=== PATIENT | female | born 1995 | race Caucasian/White ===

== ENCOUNTER → 2022-04-17 10:05 | Outpatient (CLI) | payer OTHER, SELFPAY ==
--- NOTE | ~2022-04-17 | US_ITS ---
EXAMINATION: US pelvic complete w TV DATE: 04/17/2022 11:05 INDICATION: Menorrhagia TECHNIQUE: Multiple transabdominal and endovaginal sonographic images of the pelvis were obtained. COMPARISON: None. FINDINGS: The uterus measures 8.0 x 4.0 x 5.5 cm. The endometrial complex measures 4 mm. An IUD is in expected position. The right ovary measures 2.9 x 2.3 x 2.4 cm. The left ovary measures 3.3 x 2.0 x 3.2 cm. There is normal vascular flow in the ovaries. There is no free fluid in the pelvis. IMPRESSION: 1. No sonographic correlate for the patient's symptoms. 2. IUD in expected position. Reviewed, dictated and finalized at location A.
== END ==
PROVIDERS: PCP Internal Medicine; Visit Provider Internal Medicine
DX: N92.0 Excessive and frequent menstruation with regular cycle (principal); Z97.5 Presence of (intrauterine) contraceptive device
CPT/HCPCS: 76830; 76856

== ENCOUNTER 2022-09-22 08:43 | Emergency (ER) | payer OTHER, SELFPAY ==
--- NOTE | ~2022-09-22 | XR_ITS ---
EXAMINATION:XR_[id number]_CR DATE: 09/22/2022 09:50 INDICATION: Mid and upper back pain. Left neck tightness and limited range of motion. TECHNIQUE: AP, lateral, lateral swimmers and odontoid views of the cervical spine are provided. COMPARISON: None FINDINGS: 12 degree cervicothoracic levocurvature. Sagittal alignment is normal. Odontoid is intact. Normal at lantoaxial interval. Vertebral body heights are normal. Disc spaces are normal. Mild facet and uncove rtebral osteoarthritis in the mid cervical spine. Prevertebral soft tissues are normal. IMPRESSION: 1. Mild cervicothoracic levocurvature with mild mid cervical facet and uncovertebral osteoarthritis. Reviewed, dictated and finalized at location L. T CULLER IMPRESSION: 1. Mild cervicothoracic levocurvature with mild mid cervical facet and uncovert ebral osteoarthritis.
[2022-09-22 08:47] VITALS: BP 131/86; PULSE 89; RESP 16; TEMP 36.5; O2SAT 100
--- NOTE | 2022-09-22 10:44 | ED.BACK ---
HPI - Back Pain/Injury General Chief Complaint: Back Pain/Injury Stated Complaint: back pain Time Seen by Provider: 09/22/22 10:37 Source: patient Mode of arrival: ambulatory Limitations: no limitations History of Present Illness HPI Narrative: Patient is a 27-year-old female who presents to the ED with report of neck pain. Patient reports she was laying in bed last night and around 9 PM when she suddenly developed pain in her posterior and left-sided neck/upper back. Symptoms continue to worsen. She tried taking a muscle relaxer with minimal relief. Patient denies any injury. She does note pain somewhat radiates down her arms. Denies numbness, tingling, chest pain, difficulty breathing. Related Data Home Medications Medication Instructions Recorded Confirmed epinephrine 0.3 mg/0.3 mL 09/22/22 injection, auto-injector (Auvi-Q) Allergies Allergy/AdvReac Type Severity Reaction Status Date / Time gluten Allergy Unknown Verified 09/22/22 10:14 Review of Systems Review of Systems: CONSTITUTIONAL: Denies fever, chills, or sweats. CARDIOVASCULAR: Denies chest pain. RESPIRATORY: Denies cough or dyspnea. GASTROINTESTINAL: Denies abdominal pain, nausea, vomiting. MUSCULOSKELETAL: See HPI. NEUROLOGIC: Denies headache, numbness, or weakness. All systems reviewed & are unremarkable except as noted in HPI and below PMFSH Past Medical History Medical History (Updated 09/22/22 @ 12:21 by Sharon Valencia PA-C) No pertinent past medical history Surgical History Surgical History (Updated 09/22/22 @ 10:45 by Sharon Valencia PA-C) No pertinent past surgical history Social History Social History (Updated 09/22/22 @ 10:45 by Sharon Valencia PA-C) Smoking status: Never smoker Exam Narrative: GENERAL: Well appearing, obese, non-toxic, in no acute distress. HEAD: Normocephalic, atraumatic. NECK: Supple. No meningeal signs, however patient holding neck in certain position. No stiffness. Minimal lower midline spinal tenderness. Mild left-sided paraspinal cervical muscle tenderness, palpable muscle tension over left upper trapezius muscle. RESPIRATORY: Airway patent, respirations nonlabored. Clear to auscultation bilaterally, no rales, rhonchi, wheezing. CARDIOVASCULAR: Regular rate and rhythm without murmurs, rubs, or gallops. Radial pulses 2+ and equal bilaterally. MUSCULOSKELETAL: Moves all extremities. Strength/ROM intact without gross deformities. Able to move BUEs, full ROM. SKIN: Warm, dry, normal color. No rashes. NEURO: A&O X3. Speech clear. Cranial nerves II-XII grossly intact. Steady gait. No ataxic movements. No focal deficits. Equal behavioral health assistant strengths bilaterally. PSYCHIATRIC: Appropriate mood and affect. Normal interaction. Course Vital Signs Vital signs: Vital Signs Temperature 97.7 F 09/22/22 08:47 Pulse Rate 89 09/22/22 08:47 Respiratory Rate 16 09/22/22 08:47 Blood Pressure 131/86 09/22/22 08:47 Pulse Oximetry 100 09/22/22 08:47 Oxygen Delivery Room Air 09/22/22 08:47 Temperature 97.7 F 09/22/22 08:47 Pulse Rate 75 09/22/22 12:33 Respiratory Rate 16 09/22/22 12:33 Blood Pressure 118/78 09/22/22 12:33 Pulse Oximetry 100 09/22/22 12:33 Oxygen Delivery Room Air 09/22/22 08:47 MDM - Back Pain/Injury MDM Narrative Medical decision making narrative: Patient presented to ED with neck pain, muscle spasms, onset last night. Vitals stable upon arrival. Patient neurologically intact. Patient with point tenderness over left cervical paraspinal muscles, left trapezius, minimal midline tenderness. No signs of meningeal signs. Afebrile. Patient otherwise well appearing, nontoxic. Doubt meningitis. X-ray of cervical spine without acute abnormalities, showing some osteoarthritis. Patient feeling better after dose of Toradol and Valium in the ED. She feels ready for discharge home at this time. Will prescribe naproxen and Flexeril for [facility]
--- NOTE | 2022-09-22 11:20 | PC.NURSE ---
Patient report received from Cat, RN. All questions answered and care of patient assumed.
[2022-09-22] MEDS: KETOROLAC (*BKC) 60 MG/2 ML VIAL IM (11:26)
[2022-09-22] MEDS: diazePAM INJ (*CRX) 10 MG/2 ML SYRINGE 2 MG IM (11:27)
--- NOTE | 2022-09-22 11:38 | PC.NURSE ---
Patient continues to c/o 8/10 upper back and neck pain. IM medications administered as ordered. Will re-evaluate. Spouse at bedside and call-light in reach.
[2022-09-22 11:44] VITALS: O2SAT 100
[2022-09-22 11:45] VITALS: O2SAT 100
[2022-09-22 12:33] VITALS: BP 118/78; PULSE 75; RESP 16; O2SAT 100
== END 2022-09-22 12:35 | disposition home or self-care (01) ==
PROVIDERS: Emergency Provider Physician Assistant; PCP Internal Medicine
DX: S16.1XXA Strain of muscle, fascia and tendon at neck level, initial encounter (principal); X58.XXXA Exposure to other specified factors, initial encounter
CPT/HCPCS: 72040; 96372; 99284; J1885; J3360

== ENCOUNTER 2024-02-17 08:01 | Emergency (ER) | payer OTHER, SELFPAY ==
[2024-02-17 08:15] VITALS: BP 109/83; PULSE 60; RESP 16; TEMP 36.5; O2SAT 100
--- NOTE | 2024-02-17 08:15 | ED.URI ---
HPI - URI/Sore Throat General Chief Complaint: Upper Respiratory Infection Stated Complaint: sinus issues Time Seen by Provider: 02/17/24 08:16 Source: patient, RN notes reviewed and old records reviewed Mode of arrival: ambulatory Limitations: no limitations History of Present Illness HPI Narrative: To [facility] Care for complaint of nonproductive cough for 1 week; sinus pain for 3 days; right ear pain, sore throat and loss of voice since this morning. Patient denies any medication allergies, prescription medications, fever, chest pain, shortness of breath, difficulty swallowing. patient has attempted to treat at home with [id number] medications without relief. Patient able to tolerate fluids by mouth. Respirations even and nonlabored. Patient in no acute distress. Related Data Allergies Allergy/AdvReac Type Severity Reaction Status Date / Time gluten Allergy Unknown Verified 02/17/24 08:15 Review of Systems Review of Systems: All systems reviewed & are unremarkable except as noted in HPI and below Constitutional: Constitutional: Reports no additional constitutional complaints Eyes: Eyes: Reports no additional eye complaints ENT: Reports as per HPI, Reports otalgia ( Right), Reports sinus pain and Reports sore throat Cardiovascular: Cardiovascular: Reports no additional cardiovascular complaints, Denies chest pain and Denies dyspnea Respiratory: Respiratory: Reports no additional respiratory complaints, Reports cough ( nonproductive) and Denies dyspnea Musculoskeletal: Musculoskeletal: Reports no additional musculoskeletal complaints Neurologic: Reports system reviewed and no additional complaints, except as documented Psychiatric: Psychiatric: Reports no additional psychiatric complaints PMFSH Past Medical History Medical History No pertinent past medical history Surgical History Surgical History No pertinent past surgical history Social History Social History Smoking status: Never smoker Comments At the time of my signature, I reviewed and agree with the nursing past medical, surgical, social, and family history. There is no relevant family history pertinent to the patient complaint. Exam Const: General: cooperative, no acute distress, alert, ill appearing acutely, tired appearing, uncomfortable and well nourished Nutritional Appearance: well nourished Orientation/consciousness: patient oriented x3 Limitations: no limitations HENMT: Head: normal to inspection Ears: Abnormal EAC present erythema on the right and TM abnormal dull bilateral and with loss of landmarks bilateral Face/Nose/Sinus: Normal external nose present, Abnormal mucous membranes and turbinates present boggy and erythematous, normal facial exam, No erythema and No edema Face and sinus: normal facial exam, no erythema and no edema Mouth: Yes Normal oral and palatal mucosa present Throat: posterior oropharynx abnormal erythema and postnasal drainage Eyes: General: appearance normal, both eyes and all related structures Neck: Neck: normal visual inspection, full ROM and no meningeal signs Lymphatic: no lymphadenopathy noted and no lymphedema noted Chest: Chest palpation & inspection: normal inspection of the chest Resp: Effort & Inspection: normal respiratory effort and able to speak in complete sentences Auscultation: clear to auscultation bilaterally Cardio: Jugular venous distension: no JVD Rate: regular rate Rhythm: regular rhythm Back/Spine/Pelvis: Cervical Spine: cervical ROM normal Skin: General skin exam: normal color, no rashes or lesions noted and turgor normal Neuro: General: patient oriented x3, gait normal, moves all extremities and no meningeal signs Speech: normal speech Gait exam (Neuro): Normal gait present Extrem: Genera
== END 2024-02-17 08:37 | disposition home or self-care (01) ==
PROVIDERS: Emergency Provider Nurse Practitioner Family
DX: R05.9 Cough, unspecified (principal); J32.9 Chronic sinusitis, unspecified
CPT/HCPCS: 99213; G0463

== ENCOUNTER 2024-05-10 08:31 | Emergency (ER) | payer OTHER, SELFPAY ==
--- NOTE | 2024-05-10 08:39 | ED.URI ---
HPI - URI/Sore Throat General Chief Complaint: Upper Respiratory Infection Stated Complaint: URI Time Seen by Provider: 05/10/24 08:39 Source: patient, RN notes reviewed and old records reviewed Mode of arrival: ambulatory Limitations: no limitations History of Present Illness HPI Narrative: 28-year-old female to [facility] with complaint of sore throat. Patient reports finishing antibiotics and steroids yesterday for double ear infection. Patient states that her throat started hurting again last night. Patient has not yet attempted to treat at home. Patient denies difficulty swallowing, fever, ear pain, cough, GI complaints, headache, other pertinent medical history. Patient resting in exam room in no acute distress. Respirations even and nonlabored. Patient able to tolerate fluids by mouth. Patient requesting a note to return to work today Related Data Home Medications Medication Instructions Recorded Confirmed No Home Medications 05/10/24 05/10/24 Allergies Allergy/AdvReac Type Severity Reaction Status Date / Time gluten Allergy Unknown Verified 05/10/24 08:40 Review of Systems Review of Systems: All systems reviewed & are unremarkable except as noted in HPI and below Constitutional: Constitutional: Reports no additional constitutional complaints Eyes: Eyes: Reports no additional eye complaints ENT: Reports as per HPI and Reports sore throat Cardiovascular: Cardiovascular: Reports no additional cardiovascular complaints, Denies chest pain and Denies dyspnea Respiratory: Respiratory: Reports no additional respiratory complaints, Denies cough and Denies dyspnea Musculoskeletal: Musculoskeletal: Reports no additional musculoskeletal complaints Neurologic: Reports system reviewed and no additional complaints, except as documented Psychiatric: Psychiatric: Reports no additional psychiatric complaints PMFSH Past Medical History Medical History No pertinent past medical history Surgical History Surgical History No pertinent past surgical history Social History Social History Smoking status: Never smoker Comments At the time of my signature, I reviewed and agree with the nursing past medical, surgical, social, and family history. There is no relevant family history pertinent to the patient complaint. Exam Const: General: cooperative, healthy appearing, comfortable, no acute distress, alert and well nourished Nutritional Appearance: well nourished Orientation/consciousness: patient oriented x3 Limitations: no limitations HENMT: Head: normal to inspection Ears: external ears normal Face/Nose/Sinus: Normal external nose present, Normal nares present, normal facial exam, No erythema and No edema Face and sinus: normal facial exam, no erythema and no edema Mouth: Yes Normal oral and palatal mucosa present Throat: uvula midline, abnormal tonsil, no peritonsillar masses, posterior oropharynx abnormal erythema; no cobblstoning, no edema, no exudates, no lacerations and no foreign body, no postnasal drainage, tonsils absent and no uvular edema Eyes: General: appearance normal, both eyes and all related structures Neck: Neck: normal visual inspection, full ROM and no meningeal signs Lymphatic: no lymphadenopathy noted and no lymphedema noted Chest: Chest palpation & inspection: normal inspection of the chest Resp: Effort & Inspection: normal respiratory effort and able to speak in complete sentences Cardio: Jugular venous distension: no JVD Rate: regular rate Rhythm: regular rhythm Back/Spine/Pelvis: Cervical Spine: cervical ROM normal Skin: General skin exam: normal color, no rashes or lesions noted and turgor normal Neuro: General: patient oriented x3, gait normal, moves all extremities and no meningeal sig
[2024-05-10 09:01] VITALS: BP 105/76; PULSE 69; RESP 16; TEMP 36.5; O2SAT 100
== END 2024-05-10 09:21 | disposition home or self-care (01) ==
LOC: EXPGOSH 10:21
PROVIDERS: Emergency Provider Nurse Practitioner Family
DX: J02.9 Acute pharyngitis, unspecified (principal)
CPT/HCPCS: 99211; G0463

== ENCOUNTER 2024-05-23 09:46 | Outpatient (CLI) | payer OTHER, SELFPAY ==
[2024-05-23 10:25] LABS: Hematocrit 45.3 % (37.0-47.0); Hemoglobin 15.5 g/dL (12.0-15.0); Mean Corpuscular HGB Conc 34.2 g/dl (32-36); Mean Corpuscular Volume 93.6 fl (80-100); Mean Platelet Volume 11.6 fl (7.4-10.4); Platelet Count Result 262 k/mm3 (150-375); Red Blood Count 4.84 M/mm3 (4.2-5.4); Red Cell Distribution Width 13.1 % (11.5-14.5); White Blood Count 4.8 K/mm3 (4.5-10.0)
[2024-05-23 10:46] LABS: Iron 99 ug/dL (37-170)
[2024-05-23 10:58] LABS: Percent Iron Saturation 37 % (20-50)
[2024-05-23 11:29] LABS: Alanine Aminotransferase 16 U/L (6-35); Albumin Level 4.8 g/dL (3.5-5.1); Alkaline Phosphatase 55 U/L (38-126); Anion Gap 11 mmol/L (4-12); Aspartate Amino Transferase 26 U/L (14-36); Bilirubin,Total 0.6 mg/dL (0.2-1.3); Blood Urea Nitrogen 15 mg/dL (7-17); Calcium 9.1 mg/dL (8.4-10.2); Carbon Dioxide 23 mmol/L (22-30); Chloride 95 mmol/L (98-107); Estimated Glomerular Filt Rate > 60; Glucose 86 mg/dL (65-110); Potassium 3.7 mmol/L (3.4-5.0); Sodium 129 mmol/L (137-145)
[2024-05-25 09:58] LABS: Endomysial Ab (IgA) Screen NEGATIVE (NEGATIVE)
[2024-05-26 05:26] LABS: Gliadin Gluten IgA 4.3 U/mL; Immunoglobulin A 159 mg/dL (47-310); TTG IGA AB 1.6 U/mL
[2024-05-26 12:53] LABS: Vitamin D 1,25 (OH)2 Total 51 pg/mL (18-72); Vitamin D2 1,25 (OH)2 <8 pg/mL; Vitamin D3 1,25 (OH)2 51 pg/mL
== END 2024-05-23 09:47 | disposition home or self-care (01) ==
LOC: ANHLAB 09:48
PROVIDERS: Visit Provider Nurse Practitioner
DX: K90.0 Celiac disease (principal); K60.2 Anal fissure, unspecified; R11.2 Nausea with vomiting, unspecified; K21.9 Gastro-esophageal reflux disease without esophagitis
CPT/HCPCS: 36415; 80053; 82607; 82652; 82728; 82746; 82784; 83540; 83550; 84443; 85027; 86255; 86364

== ENCOUNTER 2024-10-26 15:01 | Emergency (ER) | payer OTHER, SELFPAY ==
[2024-10-26 15:03] VITALS: BP 125/72; PULSE 76; RESP 15; TEMP 36.5; O2SAT 100
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
[2024-10-26 16:45] LABS: BEDSIDEPREGUCG Negative (Negative)
[2024-10-26 16:46] VITALS: BP 117/85; PULSE 75; RESP 18; TEMP 37.1; O2SAT 97
[2024-10-26 16:54] LABS: Basophils Absolute Auto 0.1 K/mm3 (0.0-0.1); Basophils Percent Auto 0.8 % (0.2-1.2); Eosinophils Absolute Auto 0.1 K/mm3 (0-0.3); Eosinophils Percent Auto 1.2 % (0-4.4); Hematocrit 43.7 % (37.0-47.0); Immature Granulocyte Absolute 0.02 K/mm3 (0.00-0.031); Immature Granulocyte Percent A 0.2 % (0-0.5); Lymphocytes Absolute Auto 1.94 K/mm3 (0.9-3.2); Mean Corpuscular HGB Conc 34.3 g/dl (32-36); Mean Corpuscular Hemoglobin 31.9 pg (26-34); Mean Platelet Volume 10.4 fl (7.4-10.4); Monocytes Absolute Auto 0.4 K/mm3 (0.1-0.6); Monocytes Percent Auto 4.3 % (2.6-8.5); Neutrophils Absolute Auto 6.7 K/mm3 (1.3-6.7); Neutrophils Percent Auto 72.5 % (45.5-73.1); Platelet Count Result 320 k/mm3 (150-375); Red Cell Distribution Width 12.8 % (11.5-14.5); White Blood Count 9.2 K/mm3 (4.5-10.0)
[2024-10-26 17:08] LABS: INR 0.9
[2024-10-26 17:09] LABS: Partial Thromboplastin Time 22.6 Seconds (22.3-36.8)
[2024-10-26 17:12] LABS: Alanine Aminotransferase 16 U/L (6-35); Albumin Level 4.7 g/dL (3.5-5.1); Alkaline Phosphatase 56 U/L (38-126); Anion Gap 11 mmol/L (4-12); Aspartate Amino Transferase 21 U/L (14-36); Bilirubin,Total 0.5 mg/dL (0.2-1.3); Blood Urea Nitrogen 13 mg/dL (7-17); Calcium 9.1 mg/dL (8.4-10.2); Carbon Dioxide 25 mmol/L (22-30); Chloride 103 mmol/L (98-107); Estimated CRCL calculation 104 ml/min; Estimated Glomerular Filt Rate > 60; Glucose 89 mg/dL (65-110); Potassium 3.9 mmol/L (3.4-5.0); Sodium 139 mmol/L (137-145)
[2024-10-26 17:32] LABS: Beta HCG Quantitative < 2.39 mIU/ML
[2024-10-26] MEDS: predniSONE 20 MG TABLET 60 MG PO (19:55)
[2024-10-26] MEDS: KETOROLAC 15 MG/ML VIAL (*BKC) IV PUSH (19:55)
== END 2024-10-26 20:19 | disposition home or self-care (01) ==
PROVIDERS: Physician Assistant; Emergency Provider Registered Nurse
DX: S06.0X0A Concussion without loss of consciousness, initial encounter (principal); S13.4XXA Sprain of ligaments of cervical spine, initial encounter; S39.012A Strain of muscle, fascia and tendon of lower back, initial encounter; R10.9 Unspecified abdominal pain; V49.49XA Driver injured in collision with other motor vehicles in traffic accident, initial encounter; R16.0 Hepatomegaly, not elsewhere classified; N83.202 Unspecified ovarian cyst, left side; K59.00 Constipation, unspecified
CPT/HCPCS: 36415; 70450; 71260; 72125; 72129; 72132; 74177; 80053; 81025; 84702; 85025; 85610; 85730; 96374; 99284; J1885; J7512; Q9967

== ENCOUNTER 2025-02-08 05:02 | Day surgery (SDC) | payer OTHER, SELFPAY ==
[2025-02-02 13:26] VITALS: BMI 27.8
--- OUTSIDE RECORDS SUMMARY | 2025-02-08 05:05 | XMS_ITS | Clinical Summary ---
Author Organization [facility] Address [address] [place] [address] Phone Care Team Providers Care Cableway Operator Name Role Phone Raghu Johnson MD Primary Care Provider Markell Ortega MD Unavailable [phone] Allergies Active Allergy Reactions Criticality Noted Date Comments Gluten Meal Other (see Comments) 02/25/2017 Other reaction(s): GI Upset Medications Fluocinolone Acetonide Body 0.01 % Oil 11/27/2021 Active loratadine (CLARITIN) 10 MG Tablet Take 10 mg by mouth daily. Active Multiple Vitamin (MULTIVITAMIN PO) Take by mouth. Active vitamin b-12 (CYANOCOBALAMIN ) 100 MCG Tablet Take 100 mcg by mouth daily. Active methylPREDNISol one (MEDROL DOSPACK) 4 MG Tablet Therapy Pack 6 TABLETS ON DAY ONE, 5 TABLETS DAY TWO, 4 TABLETS DAY THREE, 3 TABLETS DAY FOUR, 2 TABLETS DAY FIVE, AND 1 TABLET DAY SIX 05/20/2022 Active Ferrous Sulfate (Iron) 325 (65 Fe) MG Tablet Take by mouth. Active folic acid (FOLVITE) 1 MG Tablet Take 1 Tablet by mouth daily. 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 Getting prior records. Stable. Moderate episode of recurrent major depressive d isorder 01/02/2022 Overview (05/20/2022): PHQ-9 and YUMI-7 scores reviewed and appear uncontrolled. Referred to initiate therapy. Patient counseled for about 3 minutes on strategies including stress management, sleep hygiene, balanced diet, regular physical activity including aerobic exercise, weight reduction, activity pacing and maintenance of overall health lifestyle. Comorbidities including depression, anxiety currently being managed. Active nonpharmacological therapies including supervised and graded exercise program as well as cognitive behavioral interventions discussed as well. History of colonic polyps 01/02/2022 Chronic fatigue 01/02/2022 Celiac disease 01/02/2022 Immunizations Immunization Administration Dates Next Due Adenovirus Vaccine 04/08/2012 Covid-19, Mrna, Lnp-s, Pf, 3 0 Mcg/0.3 Ml Dose ([employer]) 12/16/2020,11/29/2020 Hepatitis A And Hepatitis B Vaccine 04/0 10/2012,10/28/2012,05/25/2012,04/08 Human Papillomavirus Vaccine (HPV), quadrivalent 12/29/2013,01/17/2013,11/30/2012 Inactivated Polio Vaccine 04/08/2012 Influenza Vaccine 07/05/2016 Influenza Vaccine Nasal 05/25/2012 Influenza Vaccine Quadrivalent Nasal 05/27/2015, 05/22/2014 Influenza Vaccine, Quadrivalent, PF 07/15/2019,1 Influenza Vaccine,unspecifie d Formulation 08/30/2019 Influenza, Seasonal, Injecta ble, Undefined 06/06/2013 MMR Vaccine 02/19/2022 Meningococcal Vaccine 04/08/2012 TDAP Vaccine 02/19/2022,09/30/2016,04/08/2012 Varicella Vaccine Live 05/25/2012,04/08/2012 Family History Medical History Relation Name Comments Bipolar Disorder Brother Multiple Sclerosis Brother Crohn's Disease Father Diabetes Paternal Aunt High Cholesterol Paternal Aunt Hypertension Paternal Aunt Relation Name Status Comments Brother Father Paternal Aunt Social History Tobacco Use Types Packs/Day Years Used Date Smoking Tobacco: Former Cigarettes Q uit: 01/29/2013 Smokeless Tobacco: Never Alcohol Use Standard Drinks/Week Comments Not Currently 0 (1 standard drink = 0.6 oz pur e alcohol) PHQ-2 Answer Date Recorded Total Score - Questions 1-9 0 09/2021 Comments Unknown Sex and Gender Information Value Date Recorded Sex Assigned at Not on file Legal Sex Female 1:15 PM CDT Gender Identity Not on file Sexual Orientation Not on file Last Filed Vital Signs Vital Sign Reading Time Taken Comments Blood Pressure 110/80 05/21/2022 10:33 AM CDT Pulse 87 05/21/2022 10:33 AM CDT Temperature 36.2 C (97.1 F) 05/21/2022 10:33 AM CDT Respiratory Rate 18 05/21/2022 10:3 3 AM CDT Oxygen Saturation 99% 05/21/2022 10: 33 AM CDT Inhaled Oxygen Concentration - - Weight 85.2 kg (187 lb 14.4 oz) 022 10:33 AM CDT Height 162.6 cm (5' 4) 05/21/2022 10:3 3 AM CDT Body Mass Index 32.25 05/21/2022 10:33 AM CDT Plan of Treatment Health Maintenance Due Date Last Done Comments Hepatitis C Virus (HCV) Screening 1993 Pneumococcal Immunization Combined (1 of 2 - PCV) 2012 SARS-COV-2 Immunization (3 - season) 2024 12/16/2020, 11/29/2020 Influenza Immunization (Season Ended) 2025 08/30/2019, 07/15/2019, 2017, Additional history exists Respiratory Syncytial Virus (RSV) Immunization (Adult) (1 - 1-dose 75+ series) 2068 Meningococcal Immunization (ACWY) Completed 04/08/2012 Hepatitis B Immunization Completed 013, 10/28/2012, 05/25/2012, Additional history exists Human Papillomavirus (HPV) Immunization Completed 12/29/2013, 01/17/2013, 11/30/2012 Cervical Cancer Screening (CCS) Discontinued Pap Smear Discontinued 02/11/2022 DTaP/Tdap/Td Immunization Discontinued 2021, 09/30/2016, 04/08/2012 HPV/Cotest Discontinued Rotavirus Immunization Aged Out No lo nger eligible based on patient's age to complete this topic Insurance [employer] Care Teams Cableway Operator Relationship Specialty Start Date End Date Raghu Johnson MD [address] [facility] [address] [place] [id number] PCP - General Internal Medicine 01/09/22 Markell Ortega MD [address] [place] [id number] Consulting Physician Oncology 01/09/22
--- OUTSIDE RECORDS SUMMARY | 2025-02-08 05:05 | XMS_ITS ---
Author Name Interface, [id number] lity Address [address] [place] [address] Organization [facility] Address [address] [place] [address] Care Team Providers Care Director Of Coding Name Role Phone Mitchell Ladd Unavailable Unavailable Allergies and Adverse Reactions Medication/Group Name Reaction Severity Date No known allergies Plan Date Type Value 07/30/2021 APPOINTMENT CBC,FE PNLOV 1 2M LAB RVW (TRP) 04/01/2021 APPOINTMENT Chemo C3D8 Ferum oxytol (Feraheme) D1,8 Q14D (Intravenous Iron) 03/25/2021 APPOINTMENT OV NA LAB RVW,T1 -FERAHEME 03/25/2021 APPOINTMENT OV NA LAB RVW,T1 -FERAHEME 03/25/2021 APPOINTMENT Chemo C3D1 Ferum oxytol (Feraheme) D1,8 Q14D (Intravenous Iron) 02/25/2021 APPOINTMENT CBC,FE PNL 01/28/2021 APPOINTMENT CBC,FE PNL 10/04/2020 APPOINTMENT CBC,FE PNL 08/09/2020 APPOINTMENT OV 6M LAB RVW (O VERDUE),T1-FERAHEME 08/09/2020 APPOINTMENT Chemo C2D8 Ferum oxytol (Feraheme) D1,8 Q14D (Intravenous Iron) 08/09/2020 APPOINTMENT OV 6M LAB RVW (O VERDUE),T1-FERAHEME 12/01/2019 APPOINTMENT Lab 11/29/2019 APPOINTMENT CBC,CMP,FE PNL,V IT B12,OV 6M FU 06/20/2019 APPOINTMENT Chemo C2D8 Ferum oxytol (Feraheme) D1,8 Q14D (Intravenous Iron) 06/13/2019 APPOINTMENT Chemo C2D1 Ferum oxytol (Feraheme) D1,8 Q14D (Intravenous Iron) 06/13/2019 APPOINTMENT T1-FERAHEME 05/29/2019 APPOINTMENT OV 6M FU 05/29/2019 APPOINTMENT OV 6M FU 12/01/2019 LABORDER CBC w/ auto diff 12/01/2019 LABORDER CMP 12/01/2019 LABORDER Iron profile 12/01/2019 LABORDER Vitamin B12 pane l 08/09/2020 LABORDER Iron profile 08/09/2020 LABORDER CBC w/ auto diff 10/03/2020 LABORDER Iron profile 10/03/2020 LABORDER CBC w/ auto diff 02/07/2021 LABORDER Iron profile 02/07/2021 LABORDER CBC w/ auto diff 09/25/2021 LABORDER CBC w/ auto diff 09/25/2021 LABORDER Iron profile 03/25/2022 LABORDER CBC w/ auto diff 03/25/2022 LABORDER Iron profile Reason for Visit CBC,FE PNLOV 12M LAB RVW (TRP) Encounters Date Name 05/29/2019 Iron deficiency anem ia (disorder) Immunizations Date Name Route Dose Instructions Refusal Reason Stat us Flu vaccine - Adult Comp leted Diagnostic Results Date Type Test Units Lower Limit Upper Limit Result Flag Comments Status Ordered By Specimen Source Lab Address 07/19 Lab Repor t See clerk carrier d 10/03 Lab Repor t See clerk carrier d 10/07 CT scan resul t See clerk carrier d 02/25 CBC w/ auto diff WBC 10^3/u l 4.0 11.0 5.0 FINAL [facility] ([facility], [address] [place] [id number] 0 02/25 CBC w/ auto diff RBC 10^6/u l 3.8 5.2 4.54 FINAL [facility] ([facility])- [place], [address] [place] [id number] 0 02/25 CBC w/ auto diff HGB g/dl 11.5 16.0 14.5 FINAL [facility] ([facility], [address] [place] [id number] 0 02/25 CBC w/ auto diff HCT % 35.0 46.0 42.9 FINAL [facility] ([facility], [address] [place] [id number] 0 02/25 CBC w/ auto diff MCV FL 80.0 100.0 94.5 FINAL Hayden Dumont [facility] ([facility], [address] [place] [address] Ave [address] [place] [id number] 0 02/25 CBC w/ auto diff MCH pg 26.0 34.0 31.9 FINAL Hayden Dumont [facility] ([facility], [address] [place] [address] Ave [address] [place] [id number] 0 02/25 CBC w/ auto diff MCHC g/dL 32.0 36.0 33.8 FINAL Hayden Dumont [facility] ([facility], [address] [place] [address] Ave [address] [place] [id number] 0 02/25 CBC w/ auto diff RDW % 11.5 15.0 12.4 FINAL Hayden Dumont [facility] ([facility], [address] [place] [address] [address] [place] [id number] 0 02/25 CBC w/ auto diff PLT 10^3/u l 140.0 440.0 264 FINAL Hayden Dumont [facility] ([facility], [address] [place] [address] [address] [place] [id number] 0 02/25 CBC w/ auto diff MPV fL 6.5 12.4 11.3 FINAL Hayden Dumont [facility] ([facility], [address] [place] [address] [address] [place] [id number] 0 02/25 CBC w/ auto diff Poli % % 37.0 80.0 48.0 FINAL Hayden Dumont [facility] ([facility], [address] [place] [address] [address] [place] [id number] 0 02/25 CBC w/ auto diff LY % % 16.0 51.0 39.6 FINAL Hayden Dumont [facility] ([facility], [address] [place] [address] [address] [place] [id number] 0 02/25 CBC w/ auto diff MO % % 0.0 12.0 8.0 FINAL Hayden Dumont [facility] ([facility], [address] [place] [address] [address] [place] [id number] 0 02/25 CBC w/ auto diff EO % % 0.0 8.0 3.0 FINAL Hayden Dumont [facility] ([facility])- [place], [address] [place] [id number] 0 02/25 CBC w/ auto diff BA % % 0.0 3.0 1.2 FINAL Hayden Dumont [facility] ([facility])- [place], [address] [place] [id number] 0 02/25 CBC w/ auto diff IG % % 0.0 1.0 0.20 FINAL Hayden Dumont [facility] ([facility], [address] [place] [id number] 0 02/25 CBC w/ auto diff Poli # (ANC) 10^3/u l 1.5 8.0 2.4 FINAL Hayden Dumont [facility] ([facility], [address] [place] [id number] 0 02/25 CBC w/ auto diff LY # 10^3/u l 0.8 4.0 2.0 FINAL Hayden Dumont [facility] ([facility], [address] [place] [id number] 0 02/25 CBC w/ auto diff MO # 10^3/u l 0.0 1.2 0.4 FINAL Hayden Dumont [facility] ([facility], [address] [place] [id number] 0 02/25 CBC w/ auto diff EO # 10^3/u l 0.0 0.3 0.2 FINAL Hayden Dumont [facility] ([facility], [address] [place] [id number] 0 02/25 CBC w/ auto diff BA # 10^3/u l 0.0 0.3 0.1 FINAL Hayden Dumont [facility] ([facility], [address] [place] [id number] 0 02/25 CBC w/ auto diff IG # 10^3/u l 0.0 0.1 0.01 FINAL Hayden Dumont [facility] ([facility])- [place], [address] [place] [id number] 0 02/25 Iron profi le Iron ug/dl 30.0 160.0 95 FINAL [facility] [place], [address] [place] [id number] 0 02/25 Iron profi le Iron, % satur ation % 15.0 50.0 37 FINAL [facility], [address] [place] [id number] 0 02/25 Iron profi le TIBC ug/dl 228.0 428.0 259 FINAL [facility], [address] [place], [place] [address] [address] [facility] [place] [id number] 0 02/25 Jessica tin panel Jessica tin ng/mL 13.0 150.0 54 FINAL [facility], [address] [place], [place] [address] [address] [place] [id number] 0 Medications Date Name Route Dose Frequency Instructions Start Date End Date Status Levothyroxine Oral orally 1.0 capsule daily active Ondansetron Oral 1.0 tablet PRN active 04/01 17 ML ferumoxytol 30 MG/ML Injection intravenous 510.0 mg As Directed Dilute in 50-200 mL NS or D5W. Observe for signs and symptoms of hypersensitivity reactions for at least 30 minutes following the administration. 2020 active 04/01 methylprednis olone 125 MG Injection intravenous 125.0 mg Use as Directed Re-initiate treatment only upon physician approval. 2020 active 04/01 1 ML epinephrine 1 MG/ML Injection intramuscularl y 0.3 mg Re-initiate treatment only upon physician approval. 2020 active 04/01 diphenhydrami ne hydrochloride 50 MG/ML Injectable Solution intravenous 50.0 mg Use as Directed Re-initiate treatment only upon physician approval. 2020 active 04/01 hydrocortison e 100 MG Injection intravenous 100.0 mg Use as Directed Re-initiate treatment only upon physician approval. 2020 active 03/25 hydrocortison e 100 MG Injection intravenous 100.0 mg Use as Directed Re-initiate treatment only upon physician approval. 2020 active 03/25 1 ML epinephrine 1 MG/ML Injection intramuscularl y 0.3 mg Re-initiate treatment only upon physician approval. 2020 active 03/25 diphenhydrami ne hydrochloride 50 MG/ML Injectable Solution intravenous 50.0 mg Use as Directed Re-initiate treatment only upon physician approval. 2020 active 03/25 methylprednis olone 125 MG Injection intravenous 125.0 mg Use as Directed Re-initiate treatment only upon physician approval. 2020 active 08/09 1 ML epinephrine 1 MG/ML Injection intramuscularl y 0.3 mg Re-initiate treatment only upon physician approval. 2019 active 08/09 hydrocortison e 100 MG Injection intravenous 100.0 mg Use as Directed Re-initiate treatment only upon physician approval. 2019 active 08/09 methylprednis olone 125 MG Injection intravenous 125.0 mg Use as Directed Re-initiate treatment only upon physician approval. 2019 active 08/09 diphenhydrami ne hydrochloride 50 MG/ML Injectable Solution intravenous 50.0 mg Use as Directed Re-initiate treatment only upon physician approval. 2019 active 06/13 1 ML epinephrine 1 MG/ML Injection intramuscularl y 0.3 mg Re-initiate treatment only upon physician approval. 2018 active 06/13 methylprednis olone 125 MG Injection intravenous 125.0 mg Use as Directed Re-initiate treatment only upon physician approval. 2018 active 06/13 hydrocortison e 100 MG Injection intravenous 100.0 mg Use as Directed Re-initiate treatment only upon physician approval. 2018 active 06/13 diphenhydrami ne hydrochloride 50 MG/ML Injectable Solution intravenous 50.0 mg Use as Directed Re-initiate treatment only upon physician approval. 2018 active 12/13 hydrocortison e 100 MG Injection intravenous 100.0 mg Use as Directed Re-initiate treatment only upon physician approval. 2018 active 12/13 diphenhydrami ne hydrochloride 50 MG/ML Injectable Solution intravenous 50.0 mg Use as Directed Re-initiate treatment only upon physician approval. 2018 active 12/13 1 ML epinephrine 1 MG/ML Injection intramuscularl y 0.3 mg Re-initiate treatment only upon physician approval. 2018 active 12/13 methylprednis olone 125 MG Injection intravenous 125.0 mg Use as Directed Re-initiate treatment only upon physician approval. 2018 active 12/06 1 ML epinephrine 1 MG/ML Injection intramuscularl y 0.3 mg Re-initiate treatment only upon physician approval. 2018 active 12/06 methylprednis olone 125 MG Injection intravenous 125.0 mg Use as Directed Re-initiate treatment only upon physician approval. 2018 active 12/06 hydrocortison e 100 MG Injection intravenous 100.0 mg Use as Directed Re-initiate treatment only upon physician approval. 2018 active 12/06 diphenhydrami ne hydrochloride 50 MG/ML Injectable Solution intravenous 50.0 mg Use as Directed Re-initiate treatment only upon physician approval. 2018 active 11/28 Levocetirizin e Oral PO 1.0 TABLET(S ) daily 2018 active 11/28 Cyanocobalami n Oral PO 1.0 TABLET(S ) BID 2018 active 11/28 Miscellaneous Drug 1 PO 1.0 CAPSULE( S) as directed Rebis Nigrum Hair/Nails vitamin Le Feren Fe 2018 active 11/28 Ferrous Gluconate Oral PO 1.0 TABLET(S ) BID 2018 active 11/28 Multivitamins Oral Tablet PO 1.0 TABLET(S ) daily 2018 active Problems Diagnosis Status Date of Diagnosi s Iron deficiency anemia (disorder) Active Vital Signs Date Type Value 05/29/2019 BSA 1.87 05/29/2019 Body Temperature 97.80 05/29/2019 Heart Beat 90.00 05/29/2019 Respiratory Rate 18.00 05/29/2019 Oxygen Saturation 97.00 05/29/2019 Intravascular Systolic 126 05/29/2019 Intravascular Diastolic 87 05/29/2019 Pain Scale 6.00 05/29/2019 Weight 183.40 05/29/2019 Height 63.50 05/29/2019 BMI 31.98 06/13/2019 BSA 1.86 06/13/2019 Body Temperature 98.40 06/13/2019 Heart Beat 60.00 06/13/2019 Respiratory Rate 15.00 06/13/2019 BMI 31.39 06/13/2019 Intravascular Systolic 116 06/13/2019 Intravascular Diastolic 77 06/13/2019 Pain Scale 0.00 06/13/2019 Weight 180.00 06/13/2019 Height 63.50 06/13/2019 Oxygen Saturation 99.00 08/09/2020 BSA 1.81 08/09/2020 BMI 29.43 08/09/2020 Height 63.50 08/09/2020 Weight 168.80 08/09/2020 Pain Scale 0.00 08/09/2020 Intravascular Systolic 127 08/09/2020 Intravascular Diastolic 76 08/09/2020 Oxygen Saturation 100.00 08/09/2020 Respiratory Rate 16.00 08/09/2020 Body Temperature 97.80 08/09/2020 Heart Beat 80.00 03/25/2021 BMI 31.11 03/25/2021 Height 63.50 03/25/2021 Weight 178.40 03/25/2021 Pain Scale 2.00 03/25/2021 BSA 1.85 03/25/2021 Oxygen Saturation 99.00 03/25/2021 Respiratory Rate 16.00 03/25/2021 Heart Beat 57.00 03/25/2021 Body Temperature 97.80 03/25/2021 Intravascular Systolic 109 03/25/2021 Intravascular Diastolic 70 Notes Section * Nurse Note for: 25-MAR-21 [facility] Nurse Note Print Location: Unknown Date/Time Printed: 02/08/2025 03:05 ([facility]) Patient: MARAH DIAL Sex: Female : 1995 Date of Service: 03/25/2021 Allergies : No Known Allergies Vital Signs : Time: 11:57. Weight: 178.4 lb (80.92 kg). Height: 63.5 in (161.29 cm). BMI: 31.11 (kg/m2) . BSA: 1.85 (m2) . Temperature: 97.8 F (36.56 C) forehead. Pulse: 57 (/min) . Respirations: 16 (/min) . Bloodpressure: 109/70 (mm Hg) left arm Regular. Pain Scale: 2 L hip intermittent pain. O2 Saturation: 99(%) . Entered by Melissa Alan MA 03/25/2021 13:21 Patient Assessment : Positive results Assessment : Labs Verified: Yes, Alert, oriented with appropriate behavior. Complains of Pain-2 (L hip intermittent pain), Fatigue-moderate fatigue. Negative results Assessment : Gait Changes. Denies Neuropathy , Anxiety/Depression , Fever, Chills or Night Sweats , Signs of Infection , Skin Changes , Dizziness , Headaches , Nausea , Breathing Changes , Cough , Mouth Sores/Stomatitis/Mucositis , Changes in Appetite , Vomiting , Diarrhea -reports having Chron's and loose stool is baseline and denies any changes. , Constipation , Urinary Changes , Bleeding . Signed By Hannah Weems RN on 14:12 IV Access/Lab Draw : IV Access-Peripheral - New Start, Primary Bag Fluid-0.9% Sodium Chloride, Primary Bag Volume-250 mL, Primary Bag Start Time-14:01, Primary Bag Stop Time- 14:39, Needle Type-Iv Cath, Needle Size-24 Gauge, Needle Length-3/4 inch, Access Site-Right Arm, Flush-10ml NS, Site Assess List-Blood Return,No Redness,No Swelling,No Tenderness,No Bruising, Site Care Checklist-Aseptic Technique, Lab Drawn-No, Access Attempts-1 time(s), Comments-R posterior forearm Signed By Hannah Weems RN on 16: IV De-Access : IV Access Method-Peripheral - New Start, IV Access Type-Iv Cath, Line Flushed- 10ml NS, Catheter-Dc'd, Site Care-Site Dressing Applied,IV Infusion Completed,Blood Return Noted During Administration,Therapy Completed Without Adverse Event, Site Assess-Line Intact,No Redness,No Swelling,No Tenderness,No Bruising, Signed By Hannah Weems RN on :27 Discharge Note : Comments-Therapy completed without adverse event, AfebrileDr. order to continue w/ treatment, Discharged from clinic, Dr. Sruthi reviewed lab results, order to continue with treatment, No Weakness, No c/o dizziness, Patient instructed to call office with any questions or problems, Accompanied By-Self, Discharge-Ambulatory, Discharge Time-03/25/2021 14:40 Entered By Hannah Weems RN on : Medication Administration : Incident to: Lara Huitron MD Ferumoxytol (Feraheme) D1,8 Q14D (Intravenous Iron) Medications Ferumoxytol IV, 510 mg/17 mL (30 mg/mL) solution, 510 mg intravenous Piggyback As Directed, Instructions: Dilute in 50-200 mL NS or D5W. Observe for signs and symptoms of hypersensitivity reactions for at least 30 minutes following the administration., Allow Substitution GIVEN: 510 mg Pharmacy plan: Dose Form Description: 510 mg/17 mL (30 mg/mL) solution Dispense/Waste: 510/0 mg Amount in mL: 17 Pharmacy dispense: [facility]: [id number] Dispense/Waste: 510/0 mg Given Dose/Discard: 510/0 mg Admin Details: IV Administration: Piggyback Start Time: 14:06, Entered By: Hannah Weems RN, Stop Time: 14:37, Entered By: Hannah Weems RN Admix Fluid: 0.9 % sodium chloride, Admix Fluid Volume: 100mL, Total Volume: 127mL * Nurse Note for: 09-AUG-20 [facility] Nurse Note Print Location: Unknown Date/Time Printed: 02/08/2025 03:05 ([facility]) Patient: MARAH DIAL Sex: Female : 1995 Date of Service: 08/09/2020 Allergies : No Known Allergies Vital Signs : Time: 11:40. Weight: 168.8 lb (76.57 kg). Height: 63.5 in (161.29 cm). BMI: 29.43 (kg/m2) . BSA: 1.81 (m2) . Temperature: 97.8 F (36.56 C). Pulse: 80 (/min) . Respirations: 16 (/min) . Blood pressure: 127/76 (mm Hg) left arm Wrist. Pain Scale: 0. O2 Saturation: 100 (%) . Entered by Melissa Phillips MA 08/09/2020 11:41 Patient Assessment : Positive results Assessment : Alert, oriented with appropriate behavior. Complains of Fatigue. Negative results Assessment : Labs Verified: No, Gait Changes. Denies Neuropathy , Pain -0-No pain, Anxiety/Depression , Fever, Chills or Night Sweats , Signs of Infection , Skin Changes , Dizziness , Headaches , Nausea , Breathing Changes , Cough , Mouth Sores/Stomatitis/Mucositis , Changes in Appetite , Vomiting , Diarrhea , Constipation , Urinary Changes , Bleeding . Signed By Mahnaz Silvestre RN on 13:34 IV Access/Lab Draw : IV Access-Peripheral - New Start, Primary Bag Fluid-0.9% Sodium Chloride, Primary Bag Volume-250 mL, Primary Bag Start Time-13:14, Needle Type-Iv Cath, Needle Size-22 Gauge, Access Site-Right Arm, Flush-10ml NS, Site Assess List- Blood Return,No Redness,No Swelling,No Tenderness,No Bruising, Access Attempts-1 time(s),R Arm, Signed By Mahnaz Silvestre RN on 13:23 IV De-Access : IV Access Method-Peripheral - New Start, IV Access Type-Iv Cath, Line Flushed- 10ml NS, Catheter-Dc'd, Site Care-IV Infusion Completed,Therapy Completed Without Adverse Event,Occlusive Dressing Applied, Site Assess-Line Intact,No Redness,No Swelling,No Tenderness,No Bruising, Signed By Mahnaz Silvestre RN on 13:24 Medication Administration : Incident to: Pita Ba MD Ferumoxytol (Feraheme) D1,8 Q14D (Intravenous Iron) Medications Ferumoxytol IV, 510 mg/17 mL (30 mg/mL) solution, 510 mg intravenous Piggyback As Directed, Instructions: Dilute in 50-200 mL NS or D5W. Observe for signs and symptoms of hypersensitivity reactions for at least 30 minutes following the administration., Allow Substitution GIVEN: 510 mg Pharmacy plan: Dose Form Description: 510 mg/17 mL (30 mg/mL) solution Dispense/Waste: 510/0 mg Amount in mL: 17 Pharmacy dispense: [facility]: [id number] Dispense/Waste: 510/0 mg Given Dose/Discard: 510/0 mg Admin Details: IV Administration: Piggyback, Comments: Pt observed for 30 min post infusion Start Time: 13:14, Entered By: Mahnaz Silvestre RN, Stop Time: 13:44, Entered By: Mahnaz Silvestre RN Admix Fluid: 0.9 % sodium chloride, Admix Fluid Volume: 100mL, Total Volume: 127mL * Nurse Note for: 13-JUN-19 [facility] Nurse Note Print Location: Unknown Date/Time Printed: 02/08/2025 03:05 ([facility]) Patient: MARAH DIAL Sex: Female : 1995 Date of Service: 06/13/2019 Allergies : No Known Allergies Vital Signs : Time: 15:24. Weight: 180 lb (81.65 kg). Height: 63.5 in (161.29 cm). BMI: 31.39 (kg/m2) . BSA: 1.86(m2) . Temperature: 98.4 F (36.89 C) forehead. Pulse: 60 (/min) radial sitting. Respirations: 15 (/min) . Blood pressure: 116/77 (mm Hg) right arm Regular. Pain Scale: 0. O2 Saturation: 99 (%) at rest. Entered by Christie Young MA 06/13/2019 15:32 Serial Vital Signs : Vitals Time: 16:30, B/P: 122/80 (mm Hg), Sitting, Pain Scale: 0, Temp: 98.1 (F) , Pulse: 73 (/min) , Resp: 18 (/min) , O2 Sat: 98 (%) by Dimple Meza RN 06/13/2019 16:47 Patient Assessment : Positive results Assessment : Labs Verified: Yes, Alert, oriented with appropriate behavior. Complains of Fatigue, Headaches. Negative results Assessment : Denies Pain -0-No pain, Fever, Chills or Night Sweats , Dizziness , Nausea , Breathing Changes , Cough , Changes in Appetite , Diarrhea -Dx Celiac, Constipation . Signed By Dimple Meza RN on 16:46 IV Access/Lab Draw : IV Access-Peripheral - New Start, Needle Type-Iv Cath, Needle Size-24 Gauge, Needle Length-1/2 inch, Access Site-Right Wrist, Flush-5ml NS, Site Assess List- Blood Return,No Redness,No Swelling,No Tenderness,No Bruising, Access Attempts-1 time(s), Signed By Dimple Meza RN on 16:46 IV De-Access : IV Access Method-Peripheral - New Start, IV Access Type-Iv Cath, Line Flushed- 5ml NS, Catheter-Dc'd, Site Care-IV Infusion Completed,Therapy Completed Without Adverse Event, Site Assess-Line Intact,No Redness,No Swelling,No Tenderness,No Bruising, Signed By Dimple Meza RN on 16:46 Medication Administration : Incident to: David Andrea MD Ferumoxytol (Feraheme) D1,8 Q14D (Intravenous Iron) Medications Ferumoxytol IV, 510 mg/17 mL (30 mg/mL) solution, 510 mg intravenous Piggyback As Directed, Instructions: Dilute in 50-200 mL NS or D5W. Observe for signs and symptoms of hypersensitivity reactions for at least 30 minutes following the administration., Allow Substitution GIVEN: 510 mg Pharmacy plan: Dose Form Description: 510 mg/17 mL (30 mg/mL) solution Dispense/Waste: 510/0 mg Amount in mL: 17 Pharmacy dispense: [facility]: [id number] Dispense/Waste: 510/0 mg Given Dose/Discard: 510/0 mg Start Time: 16:00, Entered By: Dimple Meza RN, Stop Time: 16:30, Entered By: Dimple Meza RN Admix Fluid: 0.9 % sodium chloride, Admix Fluid Volume: 100mL, Total Volume: 127mL
--- OUTSIDE RECORDS SUMMARY | 2025-02-08 05:05 | XMS_ITS ---
Author Organization [facility] ([address]) Address [address] [place] [address] Care Team Providers Care Prawn Trawler Hand Name Role Phone Apollo Nieto Unavailable [phone] Raghu Johnson Unavailable Unavailable Milan Pillai [phone] REASON FOR VISIT InBody Follow-up Encounters Encounter Location Date Provider Diagnosis [facility] ([address]) [address] [place] [id number] 09/07/2024 Milan Pillai Plan Of Treatment No Information Progress Notes * Oskar DIALB: 3 (29 yo F)Acc No.[id number]:09/07/2024 InBody Follow-up Patient: Jo-Ann LALA Provider: Jennifer Pillai MD :1995 A ge:29 Y S ex:Female Date:09/07/2024 Address:[facility] [address], [id number] Subjective: * Chief Complaints: * 1 . InBody Follow-up. * Medical History: Objective: * Vitals: Assessment: Plan: * Treatment: * Billing Information: * Visit Code: * Procedure Codes: * Electronic signature of John Pillai MD, FAAAAI on 02/08/2025 at 05:05 AM CDT Sign off status: Pending * Provider: Jennifer Pillai MD Date: 0 09/07/2024 Generated for Guevara vega/Nico/Vishnu on: 0 02/08/2025 05:05 AM CDT
--- OUTSIDE RECORDS SUMMARY | 2025-02-08 05:05 | XMS_ITS | CCD ---
Author Name Interface, [id number] lity Address [address] [facility] [address] [place] [address] Organization [facility] Address [address] [facility] [address] [place] [address] Care Team Providers Care Drivematic Machine Operator Name Role Phone Hayden Dumont Unavailable Allergies and Adverse Reactions Care Plan Reason for Visit Encounters Functional Status Medications Problems Social History
--- OUTSIDE RECORDS SUMMARY | 2025-02-08 05:05 | XMS_ITS | CCD ---
Author Name Interface, [id number] lity Address [address] [place] [address] Organization [facility] Address [address] [facility] [address] [place] [address] Care Team Providers Care Extraction Operator Name Role Phone Hayden Dumont Unavailable Allergies and Adverse Reactions Care Plan Reason for Visit Encounters Functional Status Medications Problems Social History
--- OUTSIDE RECORDS SUMMARY | 2025-02-08 05:06 | XMS_ITS ---
Author Organization [facility] [place] ([address]) Address [address] [place] [address] Care Team Providers Care Robotics Specialist Name Role Phone Apollo Nieto Unavailable [phone] Raghu Johnson Unavailable Unavailable Milan Pillai [phone] REASON FOR VISIT InBody Follow-up Encounters Encounter Location Date Provider Diagnosis [facility] [place] ([address]) [address] [place] [address] 08/10/2024 Milan Pillai Plan Of Treatment No Information Progress Notes * Oskar DIALB: 3 (29 yo F)Acc No.[id number]:08/10/2024 InBody Follow-up Patient: Jo-Ann LALA Provider: Jennifer Pillai MD :1995 A ge:29 Y S ex:Female Date:08/10/2024 Address:[facility] [address] [place], [facility] Subjective: * Chief Complaints: * 1 . InBody Follow-up. * Medical History: Objective: * Vitals: Assessment: Plan: * Treatment: * Billing Information: * Visit Code: * Procedure Codes: 05664 InBody Silver Subscription (monthly). * Electronic signature of John Pillai MD, FAAAAI on 02/08/2025 at 05:05 AM CDT Sign off status: Pending * Provider: Jennifer Pillai MD Date: 1 10/11/2023 Generated for Guevara vega/Nico/Vishnu on: 0 02/08/2025 05:05 AM CDT
--- OUTSIDE RECORDS SUMMARY | 2025-02-08 05:06 | XMS_ITS | Patient Health Record ---
Author Organization [facility] [place] ([address]) Address [address] [place] [address] Care Team Providers Care Wastewater Analyst Name Role Phone WillyApollo turner Unavailable [phone] Raghu Johnson Unavailable Unavailable Milan Pillai Unavailable [phone] [facility], Provider Unavailable Unavailab le Allergies Allergen (clinical drug ingredient) Drug/Non Drug Allergy documented on EMR Reaction Allergy Type Onset Date Status Gluten GLUTEN CONTAINING PRODUCTS (uncoded) Internal/external reactions Allergy Active Results Component Value Reference Range Notes HRT Female Pre Pellet Reviewed date:03/13/2024 02:01:12 PM Interpretation:Abnormal Performing [facility], [address], [place] [id number], Phone - [phone], Director - Vonnie Notes/Report: Glucose 85 70-99 mg/dL BUN 14 6-20 mg/dL Creatinine 0.80 0.57-1.00 mg/dL eGFR 102 >59 mL/min/1.73 BUN/Creatinine Ratio 18 9-23 Sodium 138 134-144 mmol/L Potassium 4.3 3.5-5.2 mmol/L Chloride 99 96-106 mmol/L Carbon Dioxide, Total 26 20-29 mmol/L Calcium 9.8 8.7-10.2 mg/dL Protein, Total 6.7 6.0-8.5 g/dL Albumin 4.5 4.0-5.0 g/dL Globulin, Total 2.2 1.5-4.5 g/dL Bilirubin, Total 0.4 0.0-1.2 mg/dL Alkaline Phosphatase 64 44-121 IU/L AST (SGOT) 15 0-40 IU/L ALT (SGPT) 14 0-32 IU/L Vitamin B12 211 505-1463 pg/mL Vitamin D, 25-Hydroxy 24.9 30.0-100.0 ng/mL Vitamin D deficiency has been defined by the [place] of Medicine and an Endocrine Society practice guideline as a level of serum 25-OH vitamin D less than 20 ng/mL (1,2). The Endocrine Society went on to further define vitamin D insufficiency as a level between 21 and 29 ng/mL (2). 1. IOM ([place] of Medicine). 2010. Dietary reference intakes for calcium and D. [place]: The National Academies Press. 2. Connor MF, Kristine COOPER, Diana LOZANO, et al. Evaluation, treatment, and prevention of vitamin D deficiency: an Endocrine Society clinical practice guideline. JCEM. 2010; 96(7):1911-30. TSH 2.070 0.450-4.500 uIU/mL Triiodothyronine (T3), Free 3.1 2.0-4.4 pg/mL T4,Free(Direct) 1.44 0.82-1.77 ng/dL Thyroid Peroxidase (TPO) Ab 17 0-34 IU/mL Testosterone 8 13-71 ng/dL FSH 3.0 Adult Female Range Follicular phase 3.5 - 12.5 Ovulation phase 4.7 - 21.5 Luteal phase 1.7 - 7.7 Postmenopausal 25.8 - 134.8 Estradiol 111.0 Adult Female Range Follicular phase 12.5 - 166.0 Ovulation phase 85.8 - 498.0 Luteal phase 43.8 - 211.0 Postmenopausal <6.0 - 54.7 1st trimester 215.0 - >4300.0 Fabiola ECLIA methodology WBC 6.2 3.4-10.8 x10E3/uL RBC 4.65 3.77-5.28 x10E6/uL Hemoglobin 14.7 11.1-15.9 g/dL Hematocrit 43.6 34.0-46.6 % MCV 94 79-97 fL MCH 31.6 26.6-33.0 pg MCHC 33.7 31.5-35.7 g/dL RDW 13.0 11.7-15.4 % Platelets 316 150-450 x10E3/uL Neutrophils 56 Not Estab. % Lymphs 34 Not Estab. % Monocytes 7 Not Estab. % Eos 1 Not Estab. % Basos 1 Not Estab. % Neutrophils (Absolute) 3.5 1.4-7.0 x10E3/uL Lymphs (Absolute) 2.1 0.7-3.1 x10E3/uL Monocytes(Absolute) 0.4 0.1-0.9 x10E3/uL Eos (Absolute) 0.1 0.0-0.4 x10E3/uL Baso (Absolute) 0.1 0.0-0.2 x10E3/uL Immature Granulocytes 1 Not Estab. % Immature Grans (Abs) 0.0 0.0-0.1 x10E3/uL Reason For Referral No Information Medications Medication SIG (Take, Route, Frequency, Duration) Notes Start Date End Date Status Pantoprazole Sodium 40 MG 1 tab(s) orally once a day Active Auvi-Q 0.3 MG/0.3ML as directed intramuscularly once for 30 days Active NASAL WASHES N/A DIRECTED INTRANASALLY NEEDED for 30 *Please review for potential replacement for e-prescription and drug interaction check* Active SIT (TRADITIONAL) VARIABLE PER SCHEDULE SC PER SCHEDULE for TO BE DETERMINED *Please review for potential replacement for e-prescription and drug interaction check* 02/08/2023 Active Fluticasone Propionate 50 MCG/ACT 2 spray(s) in each nostril BID for 30 day(s) Active ROBAXIN-750 *Please review for potential replacement for e-prescription and drug interaction check* Active Cetirizine HCl 10 MG 1 tab(s) orally once a day for 30 days Active Social History Tobacco Use: Social History Observation Description Date Details (start date - stop date) Former Smoker NA - 08/30/2015 Smoking Smart Form: Question Answer Notes Are you a: former smoker When did you stop smoking? 08/30/2015 Problems Problem Type SNOMED Code ICD Code Onset Dates Problem Status W/U Status Risk Notes Problem Hypothyroidism (28660014) Hypothyroidism, unspecified (E03.9) Active confirmed Problem Chronic allergic conjunctivitis (80969466) Other chronic allergic conjunctivitis (H10.45) Active confirmed Problem Allergic rhinitis caused by pollen (disorder) (95850958) Allergic rhinitis due to pollen (J30.1) Active confirmed Problem Allergic rhinitis caused by animal hair and dander (738290990088307) Allergic rhinitis due to animal (cat) (dog) hair and dander (J30.81) Active confirmed Problem Allergic rhinitis (48160491) Other allergic rhinitis (J30.89) Active confirmed Problem Ingestion dermatitis caused by food (902611756) Dermatitis due to ingested food (L27.2) Active confirmed Problem Malaise (857866640) Other malaise (R53.81) Active confirmed Problem Chronic fatigue syndrome (disorder) (42566407) Chronic fatigue, unspecified (R53.82) Active confirmed Problem Fatigue (90578808) Other fatigue (R53.83) Active confirmed Problem Abnormal weight gain (469609865) Abnormal weight gain (R63.5) Active confirmed Problem Allergic rhinitis caused by pollen (disorder) (20112144) Allergic rhinitis due to pollen (J30.1) Active confirmed Problem Allergic rhinitis caused by animal hair and dander (664940432678238) Allergic rhinitis due to animal (cat) (dog) hair and dander (J30.81) Active confirmed Problem Allergic rhinitis (25133853) Other allergic rhinitis (J30.89) Active confirmed Problem Chronic allergic conjunctivitis (61761977) Other chronic allergic conjunctivitis (H10.45) Active confirmed Vital Signs Height 63 in 08/10/2024 Weight 160.8 lbs 08/10/2024 BMI 28.48 kg/m2 08/10/2024 Encounters Encounter Location Date Provider Diagnosis [address] [address] 02/12/2024 Provider [facility] [place] ([address]) [address] [place] [address] 02/23/2024 Milan Pillai Abnormal weight gain R63.5 ; Hypothyroidism, unspecified E03.9 ; Chronic fatigue, unspecified R53.82 ; Other fatigue R53.83 and Other malaise R53.81 [facility] [place] ([address]) [address] [place] [address] 02/29/2024 Milan Pillai Abnormal weight gain R63.5 ; Hypothyroidism, unspecified E03.9 ; Chronic fatigue, unspecified R53.82 ; Other fatigue R53.83 and Other malaise R53.81 [facility] [place] ([address]) [address] [place] [address] 03/07/2024 Milan Pillai Abnormal weight gain R63.5 ; Hypothyroidism, unspecified E03.9 ; Chronic fatigue, unspecified R53.82 ; Other fatigue R53.83 and Other malaise R53.81 [facility] ([address]) [address] [place] [address] 03/30/2024 Milan Pillai Abnormal weight gain R63.5 ; Hypothyroidism, unspecified E03.9 ; Chronic fatigue, unspecified R53.82 ; Other fatigue R53.83 and Other malaise R53.81 [facility] ([address]) [address] [place] [address] 04/06/2024 Milan Pillai Abnormal weight gain R63.5 ; Hypothyroidism, unspecified E03.9 ; Chronic fatigue, unspecified R53.82 ; Other fatigue R53.83 and Other malaise R53.81 [facility] ([address]) [address] [place] [address] 04/06/2024 Milan Pillai [facility] ([address]) [address] [place] [address] 04/12/2024 Milan Pillai Abnormal weight gain R63.5 ; Hypothyroidism, unspecified E03.9 ; Chronic fatigue, unspecified R53.82 ; Other fatigue R53.83 and Other malaise R53.81 [facility] ([address]) [address] [place] [address] 04/19/2024 Milan Pillai Abnormal weight gain R63.5 ; Hypothyroidism, unspecified E03.9 ; Chronic fatigue, unspecified R53.82 ; Other fatigue R53.83 and Other malaise R53.81 [facility] ([address]) [address] [place] [place] [address] 05/02/2024 Milan Pillai [facility] [place] ([address]) [address] [place] [address] 06/14/2024 Milan Pillai Abnormal weight gain R63.5 ; Hypothyroidism, unspecified E03.9 ; Chronic fatigue, unspecified R53.82 ; Other fatigue R53.83 and Other malaise R53.81 [facility] [place] ([address]) [address] [place] [address] 06/14/2024 Milan Pillai [facility] [place] ([address]) [address] [place] [address] 07/13/2024 Milan Pillai Abnormal weight gain R63.5 ; Hypothyroidism, unspecified E03.9 ; Chronic fatigue, unspecified R53.82 ; Other fatigue R53.83 and Other malaise R53.81 [facility] ([address]) [address] [place] [address] 07/13/2024 Milan Pillai [facility] ([address]) [address] [place] [address] 08/10/2024 Milan Pillai Abnormal weight gain R63.5 ; Hypothyroidism, unspecified E03.9 ; Chronic fatigue, unspecified R53.82 ; Other fatigue R53.83 and Other malaise R53.81 [facility] ([address]) [address] [place] [address] 08/10/2024 Milan Pillai [facility] [address] [place], [place] [address] [place] [address] [place] [address] 02/10/2024 Milan Pillai Allergic rhinitis du e to pollen J30.1 ; Allergic rhinitis due to animal (cat) (dog) hair and dander J30.81 ; Other allergic rhinitis J30.89 and Other chronic allergic conjunctivitis H10.45 [facility] [address] [place], [place] [address] [address] [place] [address] 03/16/2024 Milan Pillai Allergic rhinitis du e to pollen J30.1 ; Allergic rhinitis due to animal (cat) (dog) hair and dander J30.81 ; Other allergic rhinitis J30.89 and Other chronic allergic conjunctivitis H10.45 [facility] ([address]) [address] [place] [address] 03/16/2024 Milan Pillai Abnormal weight gain R63.5 ; Hypothyroidism, unspecified E03.9 ; Chronic fatigue, unspecified R53.82 ; Other fatigue R53.83 and Other malaise R53.81 [facility] ([address]) [address] [place] [address] 03/23/2024 Milan Pillai Abnormal weight gain R63.5 ; Hypothyroidism, unspecified E03.9 ; Chronic fatigue, unspecified R53.82 ; Other fatigue R53.83 and Other malaise R53.81 [facility] [address] [facility] [address] [place] [address] 04/13/2024 Milan Pillai Allergic rhinitis du e to pollen J30.1 ; Allergic rhinitis due to animal (cat) (dog) hair and dander J30.81 ; Other allergic rhinitis J30.89 and Other chronic allergic conjunctivitis H10.45 [facility] ([address]) [address] [place] [address] 04/13/2024 Milan Pillai Abnormal weight gain R63.5 ; Hypothyroidism, unspecified E03.9 ; Chronic fatigue, unspecified R53.82 ; Other fatigue R53.83 and Other malaise R53.81 [facility] ([address]) [address] [place] [address] 05/16/2024 Milan Pillai Abnormal weight gain R63.5 ; Hypothyroidism, unspecified E03.9 ; Chronic fatigue, unspecified R53.82 ; Other fatigue R53.83 and Other malaise R53.81 [facility] ([address]) [address] [place] [address] 05/16/2024 [facility] Encounter Date Diagnosis (ICD Code) Assessment Notes Treatment Notes Treatment Clinical Notes Section Notes 02/10/2024 Allergic rhinitis due to pollen (ICD-10 - J30.1) 02/23/2024 Hypothyroidism, unspecified (ICD-10 - E03.9) 02/23/2024 Abnormal weight gain (ICD-10 - R63.5) 02/29/2024 Hypothyroidism, unspecified (ICD-10 - E03.9) 02/29/2024 Abnormal weight gain (ICD-10 - R63.5) 03/07/2024 Hypothyroidism, unspecified (ICD-10 - E03.9) 03/07/2024 Abnormal weight gain (ICD-10 - R63.5) 03/16/2024 Hypothyroidism, unspecified (ICD-10 - E03.9) 03/16/2024 Abnormal weight gain (ICD-10 - R63.5) 03/16/2024 Allergic rhinitis due to pollen (ICD-10 - J30.1) 03/23/2024 Hypothyroidism, unspecified (ICD-10 - E03.9) 03/23/2024 Abnormal weight gain (ICD-10 - R63.5) 03/30/2024 Hypothyroidism, unspecified (ICD-10 - E03.9) 03/30/2024 Abnormal weight gain (ICD-10 - R63.5) 04/06/2024 Hypothyroidism, unspecified (ICD-10 - E03.9) 04/06/2024 Abnormal weight gain (ICD-10 - R63.5) 04/12/2024 Hypothyroidism, unspecified (ICD-10 - E03.9) 04/12/2024 Abnormal weight gain (ICD-10 - R63.5) 04/13/2024 Hypothyroidism, unspecified (ICD-10 - E03.9) 04/13/2024 Abnormal weight gain (ICD-10 - R63.5) 04/13/2024 Allergic rhinitis due to pollen (ICD-10 - J30.1) 04/19/2024 Hypothyroidism, unspecified (ICD-10 - E03.9) 04/19/2024 Abnormal weight gain (ICD-10 - R63.5) 05/16/2024 Hypothyroidism, unspecified (ICD-10 - E03.9) 05/16/2024 Abnormal weight gain (ICD-10 - R63.5) 06/14/2024 Hypothyroidism, unspecified (ICD-10 - E03.9) 06/14/2024 Abnormal weight gain (ICD-10 - R63.5) 07/13/2024 Hypothyroidism, unspecified (ICD-10 - E03.9) 07/13/2024 Abnormal weight gain (ICD-10 - R63.5) 08/10/2024 Hypothyroidism, unspecified (ICD-10 - E03.9) 08/10/2024 Abnormal weight gain (ICD-10 - R63.5) 08/10/2024 Chronic fatigue, unspecified (ICD-10 - R53.82) 07/13/2024 Chronic fatigue, unspecified (ICD-10 - R53.82) 06/14/2024 Chronic fatigue, unspecified (ICD-10 - R53.82) 05/16/2024 Chronic fatigue, unspecified (ICD-10 - R53.82) 04/19/2024 Chronic fatigue, unspecified (ICD-10 - R53.82) 04/13/2024 Allergic rhinitis due to animal (cat) (dog) hair and dander (ICD-10 - J30.81) 04/13/2024 Chronic fatigue, unspecified (ICD-10 - R53.82) 04/12/2024 Chronic fatigue, unspecified (ICD-10 - R53.82) 04/06/2024 Chronic fatigue, unspecified (ICD-10 - R53.82) 03/30/2024 Chronic fatigue, unspecified (ICD-10 - R53.82) 03/23/2024 Chronic fatigue, unspecified (ICD-10 - R53.82) 03/16/2024 Allergic rhinitis due to animal (cat) (dog) hair and dander (ICD-10 - J30.81) 03/16/2024 Chronic fatigue, unspecified (ICD-10 - R53.82) 03/07/2024 Chronic fatigue, unspecified (ICD-10 - R53.82) 02/29/2024 Chronic fatigue, unspecified (ICD-10 - R53.82) 02/23/2024 Chronic fatigue, unspecified (ICD-10 - R53.82) 02/10/2024 Allergic rhinitis due to animal (cat) (dog) hair and dander (ICD-10 - J30.81) 02/10/2024 Other allergic rhinitis (ICD-10 - J30.89) 02/23/2024 Other fatigue (ICD-10 - R53.83) 02/29/2024 Other fatigue (ICD-10 - R53.83) 03/07/2024 Other fatigue (ICD-10 - R53.83) 03/16/2024 Other fatigue (ICD-10 - R53.83) 03/16/2024 Other allergic rhinitis (ICD-10 - J30.89) 03/23/2024 Other fatigue (ICD-10 - R53.83) 03/30/2024 Other fatigue (ICD-10 - R53.83) 04/06/2024 Other fatigue (ICD-10 - R53.83) 04/12/2024 Other fatigue (ICD-10 - R53.83) 04/13/2024 Other fatigue (ICD-10 - R53.83) 04/13/2024 Other allergic rhinitis (ICD-10 - J30.89) 04/19/2024 Other fatigue (ICD-10 - R53.83) 05/16/2024 Other fatigue (ICD-10 - R53.83) 06/14/2024 Other fatigue (ICD-10 - R53.83) 07/13/2024 Other fatigue (ICD-10 - R53.83) 08/10/2024 Other fatigue (ICD-10 - R53.83) 08/10/2024 Other malaise (ICD-10 - R53.81) 07/13/2024 Other malaise (ICD-10 - R53.81) 06/14/2024 Other malaise (ICD-10 - R53.81) 05/16/2024 Other malaise (ICD-10 - R53.81) 04/19/2024 Other malaise (ICD-10 - R53.81) 04/13/2024 Other chronic allergic conjunctivitis (ICD-10 - H10.45) 04/13/2024 Other malaise (ICD-10 - R53.81) 04/12/2024 Other malaise (ICD-10 - R53.81) 04/06/2024 Other malaise (ICD-10 - R53.81) 03/30/2024 Other malaise (ICD-10 - R53.81) 03/23/2024 Other malaise (ICD-10 - R53.81) 03/16/2024 Other chronic allergic conjunctivitis (ICD-10 - H10.45) 03/16/2024 Other malaise (ICD-10 - R53.81) 03/07/2024 Other malaise (ICD-10 - R53.81) 02/29/2024 Other malaise (ICD-10 - R53.81) 02/23/2024 Other malaise (ICD-10 - R53.81) 02/10/2024 Other chronic allergic conjunctivitis (ICD-10 - H10.45) Plan Of Treatment No Information Insurance Providers Payer Name Payer Address Payer Phone Subscriber Number Group Number Insured Name Patient Relationship to Insured Coverage Start Date Coverage End Date [facility] [address] [place] [phone] [id number] Jo-Ann Pitt Self - patient is the insured Medical (General) History Surgical History Surgery Date(Month/Year) Csection 10/05/2016 Right hand tendon repair 07/06/2019 Ganglion cyst surgery 08/30/2014 [place] teeth 08/30/2015
--- OUTSIDE RECORDS SUMMARY | 2025-02-08 05:06 | XMS_ITS ---
Author Name Interface, [id number] lity Address [address] [place] [address] Organization [facility] Address [address] [facility] [place] [address] Care Team Providers Care Electrical Prospecting Observer Name Role Phone Hayden Dumont Unavailable Unavailable Allergies and Adverse Reactions Medication/Group Name Reaction Severity Date No known allergies Plan Date Type Value 07/30/2021 APPOINTMENT CBC,FE PNLOV 1 2M LAB RVW (TRP) 04/01/2021 APPOINTMENT Chemo C3D8 Ferum oxytol (Feraheme) D1,8 Q14D (Intravenous Iron) 03/25/2021 APPOINTMENT OV NA LAB RVW,T1 -FERAHEME 03/25/2021 APPOINTMENT OV NA LAB RVW,T1 -FERAHEME 03/25/2021 APPOINTMENT Chemo C3D1 Ferum oxytol (Feraheme) D1,8 Q14D (Intravenous Iron) 09/25/2021 LABORDER CBC w/ auto diff 09/25/2021 LABORDER Iron profile 03/25/2022 LABORDER CBC w/ auto diff 03/25/2022 LABORDER Iron profile Reason for Visit CBC,FE PNLOV 12M LAB RVW (TRP) Encounters Date Name 03/25/2021 Iron deficiency anem ia (disorder) Medications Date Name Route Dose Frequency Instructions [...] (disorder) Active Vital Signs Date Type Value 03/25/2021 Body Temperature 97.80 03/25/2021 Heart Beat 57.00 03/25/2021 Respiratory Rate 16.00 03/25/2021 Oxygen Saturation 99.00 03/25/2021 BSA 1.85 03/25/2021 Pain Scale 2.00 03/25/2021 Weight 178.40 03/25/2021 Height 63.50 03/25/2021 BMI 31.11 03/25/2021 Intravascular Systolic 109 03/25/2021 Intravascular Diastolic 70 Notes Section * Nurse Note for: 25-MAR-21 [facility] Nurse Note Print Location: Unknown Date/Time Printed: 02/08/2025 03:06 ([facility]) Patient: MARAH DIAL Sex: Female : [...] O2 Saturation: 99(%) . Entered by Melissa Phillips MA 03/25/2021 13:21 Patient Assessment : Positive [...] Bruising, Signed By Hannah Weems RN on : Discharge Note : Comments-Therapy completed without adverse event, Afebrile, order to continue w/ treatment, Discharged from clinic, StableDr. reviewed lab results, order to continue with [...] mg Amount in mL: 17 Pharmacy dispense: [facility]: [id number] Dispense/Waste: 510/0 mg Given Dose/Discard: 510/0 mg Admin Details: IV Administration: Piggyback Start Time: 14:06, Entered By: Hannah Weems RN, Stop Time: 14:37, Entered By: Hannah Weems RN Admix Fluid: 0.9 % sodium chloride, Admix Fluid Volume: 100mL, Total Volume: 127mL
--- OUTSIDE RECORDS SUMMARY | 2025-02-08 05:06 | XMS_ITS | Continuity of Care Document ---
Author Organization [facility] Address [address] [place] [address] Phone Care Team Providers Care Parking Lot Spotter Name Role Phone Luigi Saldaña MD Unavailable Unavailable Allergies, Adverse Reactions, Alerts Substance Reaction Status Criticality gluten Active No Information Medications Medication Instructions Dosage Effective Dates (start - stop) Status Comments fluocinolone 0.01 % topical body oil apply by topical route 3 times every day to the affected area(s) 0.00 - Active Procedures Procedure Date OFFICE/OUTPATIENT VISIT, [facility] Advance Directives Directive Yes / No Effective Date File Name No Information Encounters Encounter Description Practice Location Reason(s) For Visit Diagnoses Date Provider Providers Copied on Encounter OFFICE/OUTPA TIENT VISIT, [facility], [address], [place], [id number], tel:[phone] [facility] physical (chief complaint) PsoriasisDepression Celiac diseaseIron deficiency anemiaHypothyroidis mPolyp of colon 2 Piotr Meyers. [address] [place], [place], [id number] , [place]. tel:[phone] Family History Family Member Type Diagnosis Age At Onset Brother Problem asthma, celiac Mother Problem IBS Brother Problem MS Father Problem crohn disease, HTN, HLP Payers Payer name Insurance type Covered green party ID Authoriza tion(s) No Information Social History Type Description Quantity Date Captured Comments Alcohol Use Details No Caffeine Use Details Unknown Tobacco Use Status Ex-cigarette smoker 022 Smoking Status Former smoker Smoking Tobacco Use Details Cigarette: Age Started: 16, Age Stopped: 21, Years Used 5 Cigarette: 0.5 Packs per day, Pack Year: 2.5 Sex Female Vital Signs Date / Time: Height Weight BMI Pulse Rate Blood Pressure Temperature Respiratory Rate Body Surface Area Head Circumference BMI percentile Pulse Ox Inhaled Ox 3:50 PM 64.00 in 193.40 lbs 33.2 0 kg/m eter (2) 66 /min 122/68 mm[Hg] 98.2 F 16 /min Chief Complaint And Reason For Visit From encounter dated '11/27/2021 15:45'. physical (chief complaint). Description: Pt has celiac disease, psoriasis and ? hypothyroidism. Pt has history of low ferritin and low b12 and has been getting iron transfusions regularly. Pt denies any GI bleeding Pt had EGD and colonoscopy done and EGD showed celiac and colonoscopy showed polyp which was ? adenoma and above were done 2020. Pt feels overall unhealthy. Pt also has PTSD with depression and mild anxiety chronically. Pt [place] counselor [place] and she wants to resume counseling .Pt denies any suicidal or homicidal thought, Pt denies any crying spells Pt does not want to take any medication for above. Pt has chronic fatigue as well. Pt denies any dizziness, sob or syncope, snoring, etc. Plan Of Treatment Date Type Action Status Referral Ordered: Psychiatry (related to Encounter for general adult medical examination without abnormal findings) ordered Referral Ordered: Hematology (related to Encounter for general adult medical examination without abnormal findings) ordered Referral Ordered: Dermatology (related to Encounter for general adult medical examination without abnormal findings) ordered Referral Ordered: Anurag Johnson MD -[facility] : Obstetrics & Gynecology (related to Encounter for general adult medical examination without abnormal findings) ordered Referral Ordered: Referrals: Psychiatry. Evaluate and treat ordered Referral Ordered: Referrals: Hematology. Evaluate and treat ordered Referral Ordered: Referrals: Dermatology. Evaluate and treat ordered Referral Referred To: Anurag Johnson MD, [place], [phone] Ordered: Referrals: Allopathic & Osteopathic Physicians : Obstetrics & Gynecology. Elizabeth EWING, [facility]. Evaluate and treat ordered History Of Present Illness Encounter Date Complaint History Of Prese nt Illness physical Pt has celiac di sease, psoriasis and ? hypothyroidism. Pt has history of low ferritin and low b12 and has been getting iron transfusions regularly. Pt denies any GI bleeding Pt had EGD and colonoscopy done and EGD showed celiac and colonoscopy showed polyp which was ? adenoma and above were done 2020. Pt feels overall unhealthy. Pt also has PTSD with depression and mild anxiety chronically. Pt was seeing counselor from [place] state and she wants to resume counseling .Pt denies any suicidal or homicidal thought, Pt denies any crying spells Pt does not want to take any medication for above. Pt has chronic fatigue as well. Pt denies any dizziness, sob or syncope, snoring, etc. Instructions Date Instruction Additional Infor mation No Information Assessments Type Assessment Date assessment Psoriasis assessment Depression assessment Celiac disease assessment Iron deficiency anemia assessment Hypothyroidism assessment Polyp of colon Mental Status Date Cognitive Assessment Orientation - [place] ed to time, place, person, situation.
--- OUTSIDE RECORDS SUMMARY | 2025-02-08 05:06 | XMS_ITS ---
Author Organization [facility] [employer] [facility] [employer] [place] ([address]) Address [address] [place] [address] Care Team Providers Care Account Executive Trainee Name Role Phone WillyApollo turner Unavailable [phone] Raghu Johnson Unavailable Unavailable Milan Pillai Unavailable [phone] REASON FOR VISIT [facility], [...] pancreatitis, Concerned about future DM and OA Encounters Encounter Location Date Provider Diagnosis [facility] [facility] [employer] [place] ([address]) [address] [place] [address] 08/31/2024 Milan Pillai Abnormal weight gain R63.5 [...] ounding Adverse Reaction: None Progress Notes * Oskar DIALB: 3 (29 yo F)Acc No.[id number]:08/31/2024 Weight Loss Patient: Jo-Ann LALA Provider: Jennifer Pillai MD :1995 A ge:29 Y S ex:Female Date:08/31/2024 Address:[address] [place] [address], [id number] Subjective: * Chief Complaints: * 1 [...] Information: * Visit Code: * Procedure Codes: 31082 [facility] - Weekly (tirzepatide) (0.5-5 mg) Tier 1. Units: 4.00. * Electronic signature of John Pillai MD, FAAAAI on 02/08/2025 at 05:05 AM CDT Sign off status: Pending * Provider: Jennifer Pillai MD Date: 0 08/31/2024 Generated for Printi ng/Faadryg/eTransmitting on: 0 02/08/2025 05:05 AM CDT History and Physical Notes * HPI (History [...]
--- OUTSIDE RECORDS SUMMARY | 2025-02-08 05:06 | XMS_ITS ---
Author Name Interface, [id number] [facility] Address [address] [place] [address] Organization [facility] Address [address] [place] [address] Care Team Providers Care Dehydrating Press Operator Name Role Phone Mitchell Ladd Unavailable Unavailable [...] Lab Address 07/19 Lab Repor t See supervisor brake repair d 10/03 Lab Repor t See supervisor brake repair d 10/07 CT scan resul t See supervisor brake repair d 02/25 CBC w/ auto diff WBC 10^3/u l 4.0 11.0 5.0 FINAL [facility] ([facility], [address] [place] [id number] 0 02/25 CBC w/ auto diff RBC 10^6/u l 3.8 5.2 4.54 FINAL [facility] ([facility])- [place], [address] [place] [id number] 0 02/25 CBC w/ auto diff HGB g/dl 11.5 16.0 14.5 FINAL [facility] ([facility], [address] [place] [id number] 0 02/25 CBC w/ auto diff HCT % 35.0 46.0 42.9 FINAL [facility] ([facility], [address] [place] [id number] 0 02/25 CBC w/ auto diff MCV FL 80.0 100.0 94.5 FINAL Hayden Dumont [facility] ([facility], [address] [place] [address] Ave [address] [place] [id number] 0 02/25 CBC w/ auto diff MCH pg 26.0 34.0 31.9 FINAL Hayden Dumont [facility] ([facility], [address] [place] [address] Ave [address] [place] [id number] 0 02/25 CBC w/ auto diff MCHC g/dL 32.0 36.0 33.8 FINAL Hayden Dumont [facility] ([facility], [address] [place] [address] Ave [address] [place] [id number] 0 02/25 CBC w/ auto diff RDW % 11.5 15.0 12.4 FINAL Hayden Dumont [facility] ([facility], [address] [place] [address] Ave [address] [place] [id number] 0 02/25 CBC w/ auto diff PLT 10^3/u l 140.0 440.0 264 FINAL Hayden Dumont [facility] ([facility], [address] [place] [address] Ave [address] [place] [id number] 0 02/25 CBC w/ auto diff MPV fL 6.5 12.4 11.3 FINAL Hayden Dumont [facility] ([facility], [address] [place] [address] Ave [address] [place] [id number] 0 02/25 CBC w/ auto diff Poli % % 37.0 80.0 48.0 FINAL Hayden Dumont [facility] ([facility], [address] [place] [address] [address] [place] [id number] 0 02/25 CBC w/ auto diff LY % % 16.0 51.0 39.6 FINAL Hayden Dumont [facility] ([facility], [address] [place] [address] [address] [place] [id number] 0 02/25 CBC w/ auto diff MO % % 0.0 12.0 8.0 FINAL Hayden Dumont [facility] ([facility], [address] [place] [address] Ave [address] [place] [id number] 0 02/25 CBC w/ auto diff EO % % 0.0 8.0 3.0 FINAL Hayden Dumont [facility] ([facility])- [place], [address] [place] [id number] 0 02/25 CBC w/ auto diff BA % % 0.0 3.0 1.2 FINAL Hayden Dumont [facility] ([facility])- [place], [address] [place] [id number] 0 02/25 CBC w/ auto diff IG % % 0.0 1.0 0.20 FINAL Hayden Dumont [facility] ([facility], [address] [place] [id number] 0 02/25 CBC w/ auto diff Poli # (ANC) 10^3/u l 1.5 8.0 2.4 FINAL Hayden Dumont [facility] ([facility], [address] [place] [id number] 0 02/25 CBC w/ auto diff LY # 10^3/u l 0.8 4.0 2.0 FINAL Hayden Dumont [facility] ([facility], [address] [place] [id number] 0 02/25 CBC w/ auto diff MO # 10^3/u l 0.0 1.2 0.4 FINAL Hayden Dumont [facility] ([facility], [address] [place] [id number] 0 02/25 CBC w/ auto diff EO # 10^3/u l 0.0 0.3 0.2 FINAL Hayden Dumont [facility] ([facility], [address] [place] [id number] 0 02/25 CBC w/ auto diff BA # 10^3/u l 0.0 0.3 0.1 FINAL Hayden Dumont [facility] ([facility], [address] [place] [id number] 0 02/25 CBC w/ auto diff IG # 10^3/u l 0.0 0.1 0.01 FINAL Hayden Dumont [facility] ([facility] [place], [address] [place] [id number] 0 02/25 Iron profi le Iron ug/dl 30.0 160.0 95 FINAL [facility] [place], [address] [place] [id number] 0 02/25 Iron profi le Iron, % satur ation % 15.0 50.0 37 FINAL [facility], [address] [place] [id number] 0 02/25 Iron profi le TIBC ug/dl 228.0 428.0 259 FINAL [facility], [address] [place], [place] [address] [address] [facility] [id number] 0 02/25 Jessica tin panel Jessica tin ng/mL 13.0 150.0 54 FINAL [facility], [address] [place], [place] [address] [address] [place] [id number] 0 Medications Date Name Route Dose Frequency [...] Print Location: Unknown Date/Time Printed: 02/08/2025 03:06 ([facility]) Patient: MARAH DIAL Sex: Female : 1995 [...] mg Amount in mL: 17 Pharmacy dispense: [facility]: [id number] Dispense/Waste: 510/0 mg Given Dose/Discard: 510/0 mg Admin Details: IV Administration: Piggyback Start Time: 14:06, Entered By: Hannah Weems RN, Stop Time: 14:37, Entered By: Hannah Weems RN Admix Fluid: 0.9 % sodium chloride, Admix Fluid Volume: 100mL, Total Volume: 127mL * Nurse Note for: 09-AUG-20 [facility] Nurse Note Print Location: Unknown Date/Time Printed: 02/08/2025 03:06 ([facility]) Patient: MARAH DIAL Sex: Female : 1995 [...] Changes , Bleeding . Signed By Mahnaz iSlvestre RN on 13:34 IV Access/Lab Draw : [...] mg Amount in mL: 17 Pharmacy dispense: [facility]: [id number] Dispense/Waste: 510/0 mg Given Dose/Discard: 510/0 mg [...] Print Location: Unknown Date/Time Printed: 02/08/2025 03:06 ([facility]) Patient: MARAH DIAL Sex: Female : 1995 [...] mg Amount in mL: 17 Pharmacy dispense: [facility]: [id number] Dispense/Waste: 510/0 mg Given Dose/Discard: 510/0 mg Start Time: 16:00, Entered By: Dimple Meza RN, Stop Time: 16:30, Entered By: Dimple Meza RN Admix Fluid: 0.9 % sodium chloride, Admix Fluid Volume: 100mL, Total Volume: 127mL
--- OUTSIDE RECORDS SUMMARY | 2025-02-08 05:06 | XMS_ITS ---
Author Name Interface, [id number] Address [address] [place] [address] Organization [facility] Address [address] [place] [address] Care Team Providers Care Personal Injury Attorney Name Role Phone Hayden Dumont Unavailable Unavailable [...] Print Location: Unknown Date/Time Printed: 02/08/2025 03:06 ([facility]) Patient: MARAH DIAL Sex: Female [...] mg Amount in mL: 17 Pharmacy dispense: [facility]: [id number] Dispense/Waste: 510/0 mg Given Dose/Discard: 510/0 mg Admin Details: IV Administration: Piggyback Start Time: 14:06, Entered By: Hannah Weems RN, Stop Time: 14:37, Entered By: Hannah Weems RN Admix Fluid: 0.9 % sodium chloride, Admix Fluid Volume: 100mL, Total Volume: 127mL
--- OUTSIDE RECORDS SUMMARY | 2025-02-08 05:07 | XMS_ITS | Data Portability ---
Author Organization [facility], [facility] Address [address] [place] [address] Care Team Providers Care Charge Master Specialist Name Role Phone [facility] Health Information Assistant Assessment Encounter Date Assessment Date Assessment LastModified by Organization Details LastModified Time 02/25/2023 02/25/2023 family planning [email or web address] Not available 02/25/2023 16:00:29 Plan of Treatment Reminders Order Date Submit Date Provider Last Modified By Organization Details Last Modified Time Details Appointments None recorded. Lab None recorded. Referral None recorded. Procedures None recorded. Surgeries None recorded. Imaging None recorded. Medication Orders Sprintec (28) 0.25 mg-0.035 mg tablet 2022 023 [email or web address] [id number], [address] [place], [address], 16:00:54 Patient TargetsNo targets recorded. Patient InstructionsNo instructions recorded. Reason for Referral None Reported. Problems Name Problem SNOMED Code Status Onset Date Resolution Date Notes Provider Name and Address Organization Details Recorded Time Pituitary adenoma 294578456 Active 2015 Denise Britsch null, [employer] [facility] 3 10:56:54 Depressive disorder 98930070 Active Denise Britsch null, [employer] [facility] 3 10:57:04 Celiac disease 237541902 Active Denise Britsch null, [employer] [facility] 3 10:56:45 Problem Notes None recorded. Procedures Surgical History Date Name Laterality Status Provider Name and Address Organization Details Recorded Time 02/26/20 23 Paragard IUD Removal completed Yulia [facility] 02/25/2023 15:59:48 12/29/19 22 Date of Last Pap Smear completed Yulia Andreas [facility] 02/25/2023 15:59:30 section completed [employer] 02/09/2023 10:57:26 cosmetic surgery completed [employer] 02/09/2023 10:57:44 repair of tendon of hand completed [employer] 02/09/2023 10:58:14 tonsillectomy completed [employer] 02/09/2023 10:58:52 Colonoscopy completed Yulia Andreas [facility] 02/25/2023 15:59:32 C Section completed [facility] [employer] [facility] 02/25/2023 15:59:32 Imaging Results None recorded. Procedure Notes None recorded. Medical Equipment None Reported. Allergies No known drug allergies Medications Name Sig Start Date Stop Date Status Note LastModified by Organization Details LastModified Time doxycycline hyclate 100 mg capsule TAKE 1 CAPSULE BY MOUTH TWICE A DAY FOR 10 DAYS active Not Available Not Available No t Available benzonatate 200 mg capsule TAKE 1 CAPSULE (200 MG TOTAL) BY MOUTH 3 (THREE) TIMES DAILY NEEDED FOR COUGH. active Not Available Not Available No t Available sucralfate 1 gram tablet 02/25 completed Not Available Not Available Not Available prednisone 20 mg tablet PLEASE SEE ATTACHED FOR DETAILED DIRECTION S 02/25 completed Not Available Not Available Not Available sumatriptan 50 mg tablet 02/25 completed Not Available Not Available Not Available methocarbam ol 750 mg tablet 02/25 completed Not Available Not Available Not Available benzonatate 100 mg capsule 02/25 completed Not Available Not Available Not Available pantoprazol e 40 mg tablet,anthony yed release TAKE 1 TABLET BY MOUTH DAILY NEEDED 02/25 completed Not Available Not Available Not Available tacrolimus 0.1 % topical ointment APPLY TOPICALLY 2 TIMES DAILY TO RASH FOR 6 WEEKS. 02/25 completed Not Available Not Available Not Available betamethaso ne dipropionat e 0.05 % topical cream APPLY TOPICALLY DAILY TO RASH. 02/25 completed Not Available Not Available Not Available Drysol Dab-O-Matic 20 % topical solution APPLY TO AFFECTED AREA TOPICALLY DAILY 02/25 completed Not Available Not Available Not Available folic acid 1 mg tablet 02/25 completed Not Available Not Available Not Available methylpredn isolone 4 mg tablets in a dose pack TAKE 6 TABLETS ON DAY 1 DIRECTED ON PACKAGE AND DECREASE BY 1 TAB EACH DAY FOR A TOTAL OF 6 DAYS active Not Available Not Available No t Available albuterol sulfate HFA 90 mcg/actuati on aerosol inhaler INHALE 1 PUFF INTO THE LUNGS EVERY 6 HOURS NEEDED FOR WHEEZING. 02/25 completed Not Available Not Available Not Available ondansetron 4 mg disintegrat ing tablet DISSOLVE 1 TABLET BY MOUTH EVERY 8 HOURS NEEDED FOR NAUSEA 02/25 completed Not Available Not Available Not Available dicyclomine 10 mg capsule 02/25 completed Not Available Not Available Not Available naproxen 500 mg tablet 02/25 completed Not Available Not Available Not Available amoxicillin 875 mg-potassiu m clavulanate 125 mg tablet 02/25 completed Not Available Not Available Not Available cyclobenzap rine 5 mg tablet 02/25 completed Not Available Not Available Not Available topiramate 50 mg tablet 02/25 completed Not Available Not Available Not Available fluocinolon e 0.01 % scalp oil and shower cap 02/25 completed Not Available Not Available Not Available Auvi-Q 0.3 mg/0.3 mL injection, auto-inject or 02/25 completed Not Available Not Available Not Available Jodi 0.25 mg-0.035 mg tablet Take 1 tablet every day by oral route. active Not Available Not Available No t Available Vitals Date Recorded Body weight Body temperature Body mass index (BMI) Body height Systolic blood pressure Diastolic blood pressure Provider Name and Address Organization Details Last Updated DateTime 3 37432.0 2 g 97.7 [degF] 32.9 kg/m2 162.56 cm 122 mm[Hg] 82 mm[Hg] [facility] 15:26:27 Social History Question Answer Notes LastModified by Organizat ion Details LastModified Time Tobacco Smoking Status Former Smoker Denise Ward null, [facility] 02/09/2023 10:54:58 Are You Blind Or Do You Have Difficulty Seeing? No Information not available 02/09/2023 Are You Deaf Or Do You Have Serious Difficulty Hearing? No Information not available 02/09/2023 What Type Of Diet Are You Following? GLUTENFREE Information not available 02/25/2023 Which Illicit Or Recreational Drugs Have You Used? Marijuana Information not available 02/25/2023 When Did You Quit Smoking? 6-10yearssince lastcigar2016 Information not available 02/09/2023 What Is Your Relationship Status? Information not available 02/25/2023 Are You Sexually Active? Yes Information not available 02/25/2023 Sex: Female Functional Status Question Answer Note LastModified by Organizat ion Details LastModified Time Do you or have you ever used any other forms of tobacco or nicotine? No Information not available 02/09/2023 What is your level of alcohol consumption? None Information not available 02/25/2023 Do you or have you ever used e-cigarettes or vape? Never used electronic cigarettes Information not available 02/25/2023 What is your exercise level? Occasional Information not available 02/25/2023 Mental Status None recorded. Family History Relationship Description Onset Age of this Age Resolved Age Notes LastModified by Organization Details LastModified Time Mother Family history of Low vision degene rative eyes Not available 02/25/2023 15:59:30 Mother Irritable bowel syndrome Not available 01/29 15:59:30 Mother Hypercholest erolemia Not available 01/29 15:59:30 Mother Depressive disorder Not available 01/29 15:59:30 Mother Hypertensive disorder Not available 01/29 15:59:30 Mother Osteoporosis Not av ailable 02/25/2023 15:59:30 Mother Uterine leiomyoma Not available 01/29 15:59:30 Unspecified Relation Depressive disorder Not available 01/29 15:59:30 Unspecified Relation Hypothyroidi sm [email or web address] Not available 01/29 15:59:30 Unspecified Relation Diabetes mellitus [email or web address] Not available 01/29 15:59:30 Brother Hypercholest erolemia [email or web address] Not available 01/29 15:59:30 Brother Depressive disorder Not available 01/29 15:59:30 Sister Depressive disorder [email or web address] Not available 01/29 15:59:30 Father Hypercholest erolemia [email or web address] Not available 01/29 15:59:30 Father Hypertensive disorder Not available 01/29 15:59:30 Medical History Condition Response Other Cancer N High Blood Pressure N Colon Cancer N Cytomegalovirus N Hyperthyroidism N Breast Cancer N Herpes (HSV) N MRSA N Blood Transfusion N Lung Cancer N Hypothyroidism Y Depression Y Incontinence Y Panic Attacks N Neurological Disorder N Deep Vein Thrombosis N Anxiety Disorder Y Autoimmune disease Y Arthritis N Tuberculosis/Positive PPD N Shingles Y Polycystic Ovarian Syndrome N Cervical Cancer N Hematuria N Chlamydia N Varicosities N Stroke N Crohn's Disease N Seasonal allergies N Alzheimer's/Dementia N COPD/Emphysema N HPV/Genital Warts Y Endometriosis N IBS (Irritable Bowel Syndrome) N History of Abnormal Pap N High Cholesterol N Liver Disease N Fibromyalgia N Kidney Infection N Ulcer N Kidney Disease N HIV N Gallbladder disease N Von Willebrand disease N Sickle Cell Disease/Trait N ADD/ADHD N Eating Disorder N Diabetes Mellitus (non-insulin dependent ) N Anemia Y Ovarian Problems N Multiple Sclerosis N Gonorrhea N Frequent Urinary Tract infections N Osteopenia N Headaches/migraines N GERD (reflux) N Ovarian Cancer N Diabetes (insulin dependent) N Seizures/Epilepsy N Fibroids N Asthma Y Heart Attack N Endometrial Cancer N Lupus N Rubella N Blood Clotting Disorder N Bipolar Disorder N Diabetes Mellitus (during ) N Ulcerative Colitis N Hepatitis N Heart Disease N Pulmonary Embolism N RPR N Chicken Pox N Osteoporosis N Gynecological History Statement/Question Response Date of Last Colonoscopy Flow Heavy Frequency of Cycle (Q days) 27-50 Date of LMP 02/17/2023 Most Recent Bone Density Date of Last Pap Smear 12/28/2021 Duration of Flow (days) 7-20 Most Recent Mammogram Current Control Method IUD Age at Menarche 12 Obstetrics History GPAL:G 2 P 2 0 0 2 Type Value Full Term 2 Living 2 Total 2 Past Encounters Encounter ID Performer Location Encounter Start Date Encounter Closed Date Diagnosis/Indication Diagnosis SNOMED-CT Code Diagnosis ICD10 Code Diagnosis Note [id number] Ray Mitchell DO [facility] [address] [place] [address] 02/25/2023 15:00:09 02/26/2023 10:29:21 Contraception care management 545627152 Z30.9 Health Concerns Section Related Observation LastModified by Organization Detai ls LastModified Time None Recorded Concern Status LastModified by Organization Details LastModified Time None Recorded Advance Directives Directive None Recorded Payers Insurance Date Sequence Insurance Name Policy Number Policy Fernandez Covered Member ID Fernandez Member ID Guarantor Name 02/22/2023 1 [facility] Jo-Annisa Pitt [id number] Jo-Ann Pitt Notes Date Note Type Note Provider Name and Address Organization Details Recorded Time 02/25/2023 text/html Jo-Ann is here today to have her IUD taken out.pt states ever since she had her daughter (2017) she has had serve pain and cramping. Ray Mitchell DO [address] [facility], [place], [address], [facility] 02/25/2023 16:00:57 OBGyn Episode No OBEpisode recorded.
[2025-02-08 09:14] VITALS: BP 112/71; PULSE 70; RESP 12; TEMP 36.6; O2SAT 100
[2025-02-08] MEDS: LACTATED RINGERS 1,000 ML 150 ML IV CONT (09:25)
--- NOTE | 2025-02-08 09:50 | P.PNAN_ITS ---
Anes - Initial Pre Proc Eval Procedure: Operation Date: 02/08/25 11:30 Proposed Procedures p Esophagogastroduodenoscopy & Colonoscopy - Blayne Storm MD Date/Time: 02/08/25 09:50 Surgeon: Blayne Storm MD Pre Op Diagnosis: Personal history of adenomatous and serrated colon Patient Data Age: 29 Gender: F Height: 1.63 m Weight: 72.5 kg Last Vital Signs Temp 97.8 F 02/08/25 09:14 Pulse 70 02/08/25 09:14 Resp 12 02/08/25 09:14 BP 112/71 02/08/25 09:14 Pulse Ox 100 02/08/25 09:14 O2 Del Method Room Air 02/08/25 09:14 Allergies Allergy/AdvReac Type Severity Reaction Status Date / Time gluten Allergy Unknown Verified 02/08/25 09:12 Home Medications ?Medication ?Instructions ?Recorded ?Confirmed ?Type pharmacy compounding accessory See Rx Instructions miscellaneous 05/23/24 02/02/25 Rx .COMPLEX #1 ea cyclobenzaprine 5 mg tablet 5 mg PO TID PRN muscle spasm #15 10/26/24 02/02/25 Rx tabs naproxen 500 mg tablet 500 mg PO BID PRN pain #10 tabs 10/26/24 02/02/25 Rx Patient hx anesthesia problems: none Family hx anesthesia problems: none Results Review: All pre-operative results and documents have been reviewed as part of the pre- operative evaluation. [facility] Past Medical History Medical History No pertinent past medical history Surgical History Surgical History No pertinent past surgical history Social History Social History Years smoked: 3 Smoking status: Former smoker Tobacco type: cigarettes Alcohol intake: never Substance use: current Substance use type: marijuana Living arrangements: with family Spiritual care concerns: No Anes - Eval Final PreProcedure Day of Procedure 02/08/25 09:50 Patient weight: normal Heart: regular rate and rhythm Lungs: clear to auscultation Airway: Mallampati scale class II Neurological: alert and oriented Last oral intake: >/= 8 hours ASA classification: II Emergent: no Anesthetic plan: proceed Anesthesia type and monitoring: general GIVS and standard monitoring Results Review: All pre-operative results and documents have been reviewed as part of the pre- operative evaluation. Informed Consent: The patient's anesthetic plan and its attendant risks and benefits were discussed with the patient/family/POA. Questions were solicited and answers provided to the satisfaction of the patient/family/POA.
--- NOTE | 2025-02-08 10:05 | PM.HPGS ---
History of Present Illness History of Present Illness Consent: Risks, benefits, and alternatives have been discussed and questions answered. Patient agrees to proceed with procedure. Chief complaint: Personal history of adenomatous and serrated colon Narrative: Jo-Ann Pitt is a 29 year old female with celiac on gluten free, with intermittent abdominal pain, CT scan no major findings, also had colon polyp in 2019 Review of Systems Review of Systems: All systems reviewed & are unremarkable except as noted in HPI and below PMFSH Past Medical History Medical History No pertinent past medical history Surgical History Surgical History No pertinent past surgical history Social History Social History Years smoked: 3 Smoking status: Former smoker Tobacco type: cigarettes Alcohol intake: never Substance use: current Substance use type: marijuana Living arrangements: with family Spiritual care concerns: No Meds Home Medications and Allergies Home Medications ?Medication ?Instructions ?Recorded ?Confirmed ?Type pharmacy compounding accessory See Rx Instructions miscellaneous 05/23/24 02/02/25 Rx .COMPLEX #1 ea cyclobenzaprine 5 mg tablet 5 mg PO TID PRN muscle spasm #15 10/26/24 02/02/25 Rx tabs naproxen 500 mg tablet 500 mg PO BID PRN pain #10 tabs 10/26/24 02/02/25 Rx Allergies Allergy/AdvReac Type Severity Reaction Status Date / Time gluten Allergy Unknown Verified 02/08/25 09:12 Vital Signs Vital Signs - 24 hr 02/08/25 09:14 Temperature 97.8 F Pulse Rate 70 Respiratory Rate 12 Blood Pressure 112/71 Pulse Oximetry 100 Oxygen Delivery Room Air Exam Const: General: comfortable and no acute distress HENMT: Face/Nose/Sinus: Normal nares present Eyes: General: appearance normal, both eyes and all related structures Neck: Neck: no JVD Resp: Auscultation: clear to auscultation bilaterally Cardio: Rate: regular rate Rhythm: regular rhythm GI: Inspection: non-distended GI Palp: Yes Soft to palpation Skin: General skin exam: normal color Neuro: General: gait normal Speech: normal speech Extrem: General: normal to inspection Psych: Mental Status: mental status grossly normal Assessment and Plan Assessment and plan (1) Celiac disease: Code(s): K90.0 - Celiac disease Status: Acute Assessment and Plan: egd (2) Hx of adenomatous colonic polyps: Code(s): Z86.010 - Personal history of colon polyps Status: Acute Assessment and Plan: colonoscopy
--- NOTE | 2025-02-08 10:23 | SUR.OPER ---
EGD end 1018 COLONOSCOPY START 102
--- NOTE | 2025-02-08 10:26 | S_PTH ---
PATIENT: Jo-Ann Pitt LOC: [facility] Cordero#:[id number] AGE/SX: 29/F ROOM: RE02/08/[address]: Blayne Storm MD : 1995 BED: DIS: 02/08/2025 SPEC #: [id number] RECD: 02/08/25 12:09 STATUS: MORALES REMaddy #: [id number] BYRON: 02/08/25 10:[address]: Blayne Storm DEPT: [facility] Surgical RECD BY: Leticia Meehan ENTERED: 02/08/25 12:09 SP TYPE: Surgical OTHR DR: PSYCHOLOGIST INDUSTRIAL ORGANIZATIONAL PHYSICIAN Tissues: A - Gastric Biopsy B - Small Bowel Bx Procedures: Hematoxylin and Eosin Stain Gross and Microscopic Level 4
[2025-02-08 10:29] LABS: BEDSIDEPREGUCG Negative (Negative)
[2025-02-08 10:35] VITALS: BP 104/68; PULSE 61; RESP 17; O2SAT 100
[2025-02-08 10:45] VITALS: BP 103/69; PULSE 53; RESP 18; O2SAT 100
[2025-02-08 10:55] VITALS: BP 112/74; PULSE 53; RESP 17; O2SAT 100
== END 2025-02-08 11:03 | disposition home or self-care (01) ==
PROVIDERS: Visit Provider Internal Medicine Gastroenterology
PROC: 0DJ08ZZ Inspection of Upper Intestinal Tract, Via Natural or Artificial Opening Endoscopic (ICD-10-PCS; CPT 45378; principal; 2025-02-08 11:30)
DX: Z12.11 Encounter for screening for malignant neoplasm of colon (principal); K64.8 Other hemorrhoids; Z86.0100 Personal history of colon polyps, unspecified; K90.0 Celiac disease; Z87.891 Personal history of nicotine dependence; F12.90 Cannabis use, unspecified, uncomplicated
CPT/HCPCS: 45378; 43239; 88305; J2003; J2704; J7120

== ENCOUNTER 2025-02-15 16:11 | Emergency (ER) | payer OTHER, SELFPAY ==
[2025-02-15 16:22] VITALS: BP 108/80; PULSE 75; RESP 14; TEMP 36.9; O2SAT 100
--- NOTE | 2025-02-15 17:16 | ED.NAVMDI ---
HPI - Nausea/Vomiting/Diarrhea General Chief complaint: Nausea/Vomiting/Diarrhea Stated complaint: Vomiting, abdominal pain, diarrhea since colonosco Time Seen by Provider: 02/15/25 16:45 29-year-old female Presents to [facility] complaining of diarrhea for 7 days. Patient reports having abdominal cramping and discomfort. Patient reports the of the abdominal discomfort occurs right after she eats something, then followed by diarrhea. Patient reports the diarrhea is loose stools. Patient denies any blood in her stools, black tarry stools, or mucous. Patient had episode of emesis 4 days ago but has not vomited since. Patient denies any abdominal pain, fevers, body aches, chills. Patient has been able to keep fluids down without issue. She states when she eats however she develops cramping sensation and has to have a bowel movement immediately. Patient has not tried any [id number] for relief. Patient has Zofran prescribed her as needed for nausea and vomiting. Patient denies recent travel outside the country. Patient states she recently had a colonoscopy approximately 7 days ago and said her symptoms started shortly after she went home from her colonoscopy. Patient called the office today her colonoscopy in the said to follow-up with her PCP. Patient has a history of celiac disease and colon polyps. Her recent colonoscopy was normal she said. Patient has not ate any bread, starches, pastas, or anything that would exacerbate her celiac symptoms. Source: patient and RN notes reviewed Mode of arrival: ambulatory Limitations: no limitations Related Data Home Medications ?Medication ?Instructions ?Recorded ?Confirmed ?Last Taken ?Type No Home Medications 02/15/25 02/15/25 Unknown History Allergies Allergy/AdvReac Type Severity Reaction Status Date / Time gluten Allergy Unknown Verified 02/15/25 16:30 Review of Systems Review of Systems: CONSTITUTIONAL: Denies fever, chills, body aches, or sweats. EYES: Denies visual changes, redness, or discharge. ENT: Denies rhinorrhea, congestion, sore throat, or otalgia. CARDIOVASCULAR: Denies chest pain, palpitations, or edema. RESPIRATORY: Denies cough or dyspnea. GASTROINTESTINAL: Denies abdominal pain, bloody stools, hematochezia. Positive for nausea, vomiting, abdominal discomfort, cramping, and diarrhea. GENITOURINARY: Denies dysuria or hematuria. SKIN: Denies rash or itching. MUSCULOSKELETAL: Denies back pain, joint pain, or myalgia. NEUROLOGIC: Denies headache, numbness, or weakness. PSYCHIATRIC: Denies anxiety or depression. All other systems reviewed are negative, except as documented in HPI. PMFSH Past Medical History Medical History No pertinent past medical history Surgical History Surgical History No pertinent past surgical history Social History Social History Years smoked: 3 Smoking status: Former smoker Tobacco type: cigarettes Alcohol intake: never Substance use: current Substance use type: marijuana Living arrangements: with family Spiritual care concerns: No Exam Narrative: GENERAL: This is a well-nourished, well-developed adult, in no apparent distress. They are non ill-appearing, nontoxic appearing. HEAD: normocephalic, atraumatic. EYES: Sclera clear/white. Vision is grossly intact. Conjunctiva normal bilaterally. Extraocular movements intact. EARS: External ears normal, Hearing grossly intact. NOSE: External nose normal THROAT: Mucous membranes moist NECK: Normal range of motion CARDIOVASCULAR: Regular rate and rhythm RESPIRATORY: Respiratory rate normal, respiratory effort nonlabored, no respiratory distress GASTROINTESTINAL: Abdomen soft, flat, non-tender, nondistended. Bowel sounds are active. No hepato-splenomegaly, or palpable masses. No guarding or rigidity. No rebound tenderness. SKIN: warm, Dry, intact with no suspicious lesions or rash, good texture and turgor. NEURO: awake, alert, and oriented to person, place and time. There were no obvious focal neurologic abnormalities. EXTREMITIES: No joint tenderness, effusion, or edema noted. BACK: Nontender without deformity. Course Course Emergency Course: Portions of this record may have been created with voice recognition software Level of Care: Express Care Visit Vital Signs Vital signs: Vital Signs Temperature 98.5 F 02/15/25 16:22 Pulse Rate 75 02/15/25 16:22 Respiratory Rate 14 02/15/25 16:22 Blood Pressure 108/80 02/15/25 16:22 Pulse Oximetry 100 02/15/25 16:22 Oxygen Delivery Room Air 02/15/25 16:22 Temperature 98.5 F 02/15/25 16:22 Pulse Rate 75 02/15/25 16:22 Respiratory Rate 14 02/15/25 16:22 Blood Pressure 108/80 02/15/25 16:22 Pulse Oximetry 100 02/15/25 16:22 Oxygen Delivery Room Air 02/15/25 16:22 MDM - Nausea/Vomiting/Diarrhea MDM Narrative Medical decision making narrative: Patient's physical exam findings are reassuring, no peritoneal findings. No systemic signs of infection. Unclear if symptoms are caused by colonoscopy or she developed a viral gastroenteritis right after her procedure. Patient does not appear clinically dehydrated. Patient has been able to keep fluids down. Recommend Pepto-Bismol or Imodium as needed for diarrhea. Advised patient to follow-up PCP or GI. Discussed physical exam findings. Advised supportive measures and signs/symptoms to go to the ER. Pt is appropriate for outpt treatment and f/u. Differential Diagnosis Differential diagnosis: Likely traveler's diarrhea, food poisoning, gastroenteritis and dehydration Discharge Plan Discharge Clinical Impression: Gastroenteritis Patient Disposition: Home Condition: Stable Instructions: Gastroenteritis (ED) Additional Instructions: Drink plenty of fluids including electrolyte supplements such as Pedialyte. Please eat small frequent meals and eat as tolerated, start with a clear liquid diet and progress back to normal foods. You may take Pepto-Bismol or Imodium as directed to help with diarrhea. Pepto-Bismol may make your stools black or green. You May take a probiotic daily. Take your Zofran as needed for nausea and vomiting. Please follow-up with GI for your PCP in 1 week if her diarrhea does not get better. If you developed worsening abdominal pain, your abdomen becomes distended and firm, you're unable to keep any food or water down, signs of dehydration, fevers, bloody stools, vomiting blood, or any other concerns please go to the ER immediately. Patient Language: Russian Prescriptions: No Action No Home Medications Follow-up/Referrals: PHYSICIAN,[facility] SHARED SERVICES CONSULTANT [Primary Care Provider] - Time of Disposition: 16:52
== END 2025-02-15 17:00 | disposition home or self-care (01) ==
DX: K52.9 Noninfective gastroenteritis and colitis, unspecified (principal); Z87.891 Personal history of nicotine dependence; K90.0 Celiac disease
CPT/HCPCS: 99211; G0463

== ENCOUNTER 2025-04-03 09:33 | Outpatient (CLI) | payer OTHER, SELFPAY ==
--- OUTSIDE RECORDS SUMMARY | 2025-04-03 09:53 | XMS_ITS | Encounter Summary ---
Author Organization [facility] Address [address] [place] [address] Care Team Providers Care Signs Sales Representative Name Role Phone Raghu Johnson MD Primary Care Provider [phone] Hayden dEuardo Primary Care Provider [phone] Encounter Details Date Type Department Care Team (Late st Contact Info) Description 01/18/2023 Loffleshart Message Enc [facility] Medical Group Multispecialty Care - [address] [address] [address] [place], [place] [id number] Raghu Johnson MD [address] [place] [address] [address] [place] [address] Poison keri Social History Tobacco Use Types Packs/Day Years Used Date Smoking Tobacco: Former Cigarettes 1.5 3 0 01/05/2014 - 01/05/2017 Smokeless Tobacco: Never Comments:counseled by Dr Denise kam Alcohol Use Standard Drinks/Week Comments Not Currently 0 (1 standard drink = 0.6 oz pur e alcohol) Havnt drank in years PHQ-2 Answer Date Recorded Patient Health Questionnaire-2 Score 2 01/05/2023 Comments No Sex and Gender Information Value Date Recorded Sex Assigned at Female 10/27/2024 1:42 PM BUSINESS ANALYST PROJECT MANAGER Legal Sex Female 8:33 PM CDT Gender Identity Not on file Sexual Orientation Not on file COVID-19 Exposure Response Date Recorded In the last 10 days, have yo u been in contact with someone who was confirmed or suspected to have Coronavirus/COVID-19? No / Unsure 01/18/2023 10:02 AM CDT documented as of this encounter Plan of Treatment Not on file documented as of this encounter Visit Diagnoses Not on filedocumented in this encounter Additional Health Concerns Infection Onset Date Last Indicated Resolved Time COVID-19 Rule Out 05/04/2024 05/04/2024 05/04/2024 12:18 PM CDT Assessment Noted Time PHQ-9 Depression Total Score: 13 022 9:45 AM CDT documented as of this encounter Care Teams Signs Sales Representative Relationship Specialty Start Date End Date Raghu Johnson MD [address] [address] PCP - General INTERNAL MEDICINE 01/02/22 09/15/23 [place] [address] [place] [address] PCP - General Physician Solar Manager Medical 09/16/23 documented as of this encounter
--- OUTSIDE RECORDS SUMMARY | 2025-04-03 09:53 | XMS_ITS | Encounter Summary ---
Author Organization [facility] Address [address] [place] [address] Care Team Providers Care Physician/Internist Name Role Phone Raghu Johnson MD Primary Care Provider [phone] Hayden Eduardo Primary Care Provider [phone] Encounter Details Date Type Department Care Team (Late st Contact Info) Description 02/24/2023 MyChart Message Enc [facility] Medical Group [facility] [address] [place], [place] [address] Mychart, [facility] Provider Air Quality Message Social History Tobacco Use Types Packs/Day Years [...] Sex Assigned at Female 10/27/2024 1:42 PM ASSISTANT ACCOUNT MANAGER Legal Sex Female 8:33 PM CDT Gender Identity Not on file Sexual Orientation Not on file documented as of this encounter Plan of Treatment Not on file documented as of this encounter Visit Diagnoses Not on filedocumented in this encounter Additional Health Concerns Infection Onset Date Last Indicated Resolved Time COVID-19 Rule Out 05/04/2024 05/04/2024 05/04/2024 12:18 PM CDT Assessment Noted Time PHQ-9 Depression Total Score: 13 022 9:45 AM CDT documented as of this encounter Care Teams Physician/Internist Relationship Specialty Start Date End Date Raghu Johnson MD [address] [facility] [address] [place] [address] PCP - General INTERNAL MEDICINE 01/02/22 09/15/23 [place] [address] [place] [address] PCP - General Physician Resolution Expert Medical 09/16/23 documented as of this encounter
--- OUTSIDE RECORDS SUMMARY | 2025-04-03 09:53 | XMS_ITS | Encounter Summary ---
Author Organization [facility] Address [address] [place] [address] Care Team Providers Care Curtains And Draperies Salesperson Name Role Phone Raghu Johnson MD Primary Care Provider [phone] Hayden Eduardo Primary Care Provider [phone] Encounter Details Date Type Department Care Team (Late st Contact Info) Description 01/29/2023 FastDuehart Message Enc [facility] Medical Group Multispecialty Care - [place] [address] [address] [address] [place], [place] [id number] Raghu Johnson MD [address] [place] [address] [address] [place] [address] My back hurts Social History Tobacco Use Types Packs/Day Years [...] Sex Assigned at Female 10/27/2024 1:42 PM BACON SLICER Legal Sex Female 8:33 PM CDT Gender [...] documented as of this encounter Care Teams Curtains And Draperies Salesperson Relationship Specialty Start Date End Date Raghu Johnson MD [address] [address] PCP - General INTERNAL MEDICINE 01/02/22 09/15/23 [place] [address] [place] [address] PCP - General Physician Production Sorter Medical 09/16/23 documented as of this encounter
--- OUTSIDE RECORDS SUMMARY | 2025-04-03 09:53 | XMS_ITS | Encounter Summary ---
Author Organization [facility] Address [address] [place] [address] Care Team Providers Care Betting Agency Counter Clerk Name Role Phone Raghu Johnson MD Primary Care Provider Hayden Eduardo Primary Care Provider [phone] Encounter Details Date Type Department Care Team (Late st Contact Info) Description 01/13/2023 InSite Visiont Message Enc [facility] Medical Group Multispecialty Care - [place] [address] [address] [address] [place], [place] [address] Raghu Johnson MD [address] [place] [address] [address] [place] [address] Thyroid Social History Tobacco Use Types Packs/Day Years [...] Sex Assigned at Female 10/27/2024 1:42 PM ELECTRONIC VIDEO GAMES SERVICER Legal Sex Female 8:33 PM CDT Gender Identity Not on file Sexual Orientation Not on file COVID-19 Exposure Response Date Recorded In the last 10 days, have yo u been in contact with someone who was confirmed or suspected to have Coronavirus/COVID-19? No / Unsure 01/13/2023 9:07 AM CDT documented as of this encounter [...] documented as of this encounter Care Teams Betting Agency Counter Clerk Relationship Specialty Start Date End Date Raghu Johnson MD [address] [address] PCP - General INTERNAL MEDICINE 01/02/22 09/15/23 [place] [address] [place] [address] PCP - General Physician Inside Sales Coordinator Medical 09/16/23 documented as of this encounter
--- OUTSIDE RECORDS SUMMARY | 2025-04-03 09:53 | XMS_ITS | Encounter Summary ---
Author Organization [facility] Address [address] [place] [address] Care Team Providers Care Battery Container Finishing Hand Name Role Phone Raghu Johnson MD Primary Care Provider [phone] Hayden Eduardo Primary Care Provider [phone] Encounter Details Date Type Department Care Team (Late st Contact Info) Description 02/05/2023 StadiumPark Appt Message Enc [facility] Medical Group Multispecialty Care - [address] [address] [address] [place], [place] [id number] Raghu Johnson MD [address] [place] [address] [address] [place], [place] [address] Reyna dumont Social History Tobacco Use Types Packs/Day Years [...] Sex Assigned at Female 10/27/2024 1:42 PM CARDIAC CATH TECH Legal Sex Female 8:33 PM CDT Gender [...] documented as of this encounter Care Teams Battery Container Finishing Hand Relationship Specialty Start Date End Date Raghu Johnson MD [address] [address] PCP - General INTERNAL MEDICINE 01/02/22 09/15/23 [place] [address] [place] [address] PCP - General Physician Clinical Program Coordinator Medical 09/16/23 documented as of this encounter
--- OUTSIDE RECORDS SUMMARY | 2025-04-03 09:53 | XMS_ITS | Encounter Summary ---
Author Organization [facility] Address [address] [place] [address] Care Team Providers Care Gas Engine Operator Name Role Phone Raghu Johnson MD Primary Care Provider [phone] Hayden Eduardo Primary Care Provider [phone] Encounter Details Date Type Department Care Team (Latest Contact Info) Description 02/19/2023 Novatel Wirelesst Message Enc [facility] Medical Group Multispecialty Care - [address] [address] [address] [place] [address] Raghu Johnson MD [address] [place] [address] [address] [place] [address] I have ring worm Social History Tobacco Use Types Packs/Day Years [...] Sex Assigned at Female 10/27/2024 1:42 PM LAYBOY TENDER Legal Sex Female 8:33 PM CDT Gender [...] documented as of this encounter Care Teams Gas Engine Operator Relationship Specialty Start Date End Date Raghu Johnson MD [address] [address] PCP - General INTERNAL MEDICINE 01/02/22 09/15/23 [place] [address] [place] [address] PCP - General Physician Machine Adjuster Leader Case Trim Medical 09/16/23 documented as of this encounter
--- OUTSIDE RECORDS SUMMARY | 2025-04-03 09:54 | XMS_ITS ---
Author Name Interface, [id number] Address [address] [facility] [address] [place] [address] Organization [facility] Address [address] [place] [address] Allergies and Adverse Reactions Plan Reason for Visit Encounters Medications Problems Vital Signs Notes Section
--- OUTSIDE RECORDS SUMMARY | 2025-04-03 09:54 | XMS_ITS | Encounter Summary ---
Author Organization [facility] Address [address] [place] [address] Care Team Providers Care Electrical Panel Builder Name Role Phone Raghu Johnson MD Primary Care Provider [phone] Hayden Eduardo Primary Care Provider [phone] Encounter Details Date Type Department Care Team (Latest Contact Info) Description 05/27/2023 Geoforce Message Enc [facility] Medical Group Multispecialty Care - [address] [address] [address] [place] [address] Raghu Johnson MD [address] [place] [address] [address] [place] [address] Asthma, allergy and immunology Social History Tobacco Use Types Packs/Day Years [...] Sex Assigned at Female 10/27/2024 1:42 PM BILLET HEATER Legal Sex Female 8:33 PM CDT Gender [...] documented as of this encounter Care Teams Electrical Panel Builder Relationship Specialty Start Date End Date Raghu Johnson MD [address] [address] PCP - General INTERNAL MEDICINE 01/02/22 09/15/23 [place] [address] [place] [address] PCP - General Physician Reference Librarian Medical 09/16/23 documented as of this encounter
--- OUTSIDE RECORDS SUMMARY | 2025-04-03 09:54 | XMS_ITS | Encounter Summary ---
Author Organization [facility] Address [address] [place] [address] Care Team Providers Care Manager Labor Relations Name Role Phone Raghu Johnson MD Primary Care Provider [phone] Hayden Eduardo Primary Care Provider [phone] Encounter Details Date Type Department Care Team (Latest Contact Info) Description 02/02/2022 SED Web Message Enc [facility] Medical Group Multispecialty Care - [place] [address] [address] [address] [place] [address] Raghu Johnson MD [address] [place] [address] [address] [place] [address] letter for celiac disease Social History Tobacco Use Types Packs/Day Years Used Date Smoking Tobacco: Former Cigarettes Q uit: 01/03/2016 Smokeless Tobacco: Never Comments:counseled by Dr Denise kam Alcohol Use Standard Drinks/Week Comments Not Currently 0 (1 standard drink = 0.6 oz pur e alcohol) PHQ-2 Answer Date Recorded PHQ-2 Score - If the patient scores above 3, please move on to questions 3-9 3 01/02/2022 Comments No Sex and Gender Information Value Date Recorded Sex Assigned at Female 10/27/2024 1:42 PM PRESS READER Legal Sex Female 8:33 PM CDT Gender Identity Not on file Sexual Orientation Not on file documented as of this encounter Plan of Treatment Not on file documented as of this encounter Visit Diagnoses Not on filedocumented in this encounter Additional Health Concerns Infection Onset Date Last Indicated Resolved Time COVID-19 Rule Out 05/20/2022 05/20/2022 05/20/2022 10:29 AM CDT COVID-19 Rule Out 05/20/2022 05/20/2022 05/20/2022 10:38 AM CDT COVID-19 Rule Out 05/04/2024 05/04/2024 05/04/2024 12:18 PM CDT Assessment Noted Time PHQ-9 Depression Total Score: 13 022 9:45 AM CDT documented as of this encounter Care Teams Manager Labor Relations Relationship Specialty Start Date End Date Raghu Johnson MD [address] [address] PCP - General INTERNAL MEDICINE 01/02/22 09/15/23 [place] [address] [place] [address] PCP - General Physician Spice Miller Hammer Mill Medical 09/16/23 documented as of this encounter
--- OUTSIDE RECORDS SUMMARY | 2025-04-03 09:54 | XMS_ITS | Encounter Summary ---
Author Organization [facility] Address [address] [place] [address] Care Team Providers Care Prevocational/Rehabilitation Counselor Name Role Phone Raghu Johnson MD Primary Care Provider [phone] Hayden Eduardo Primary Care Provider [phone] Encounter Details Date Type Department Care Team (Late st Contact Info) Description 02/16/2022 SpectraLinear Message Enc [facility] Medical Group Multispecialty Care - [address] [place] [address] [employer], [facility] Provider results Social History Tobacco Use Types Packs/Day Years Used Date Smoking Tobacco: Former Cigarettes Q uit: 01/03/2016 Smokeless Tobacco: Never Comments:counseled by Dr Denise kam Alcohol Use Standard Drinks/Week Comments Not Currently 0 (1 standard drink = 0.6 oz pur e alcohol) PHQ-2 Answer Date Recorded PHQ-2 Score - If the patient scores above 3, please move on to questions 3-9 2 02/11/2022 Comments No Sex and Gender Information Value Date Recorded Sex Assigned at Female 10/27/2024 1:42 PM JOB PLACEMENT OFFICER Legal Sex Female 8:33 PM CDT Gender Identity Not on file Sexual Orientation Not on file COVID-19 Exposure Response Date Recorded In the last 10 days, have yo u been in contact with someone who was confirmed or suspected to have Coronavirus/COVID-19? No / Unsure 02/10/2022 9:08 AM CDT documented as of this encounter [...] documented as of this encounter Care Teams Prevocational/Rehabilitation Counselor Relationship Specialty Start Date End Date Raghu Johnson MD [address] [address] PCP - General INTERNAL MEDICINE 01/02/22 09/15/23 [place] [address] [place] [address] PCP - General Physician Documentation Improvement Specialist Medical 09/16/23 documented as of this encounter
--- OUTSIDE RECORDS SUMMARY | 2025-04-03 09:54 | XMS_ITS | Clinical Summary ---
Author Organization [facility] Address [address], [facility] [address] [place] [address] Phone Care Team Providers Care Birth Certificate Clerk Name Role Phone Raghu Johnson MD Primary Care Provider [phone] Markell Ortega MD Unavailable [phone] Allergies Active Allergy Reactions Criticality Noted Date [...] Lnp-s, Pf, 3 0 Mcg/0.3 Ml Dose (Fastacash) 12/16/2020,11/29/2020 Hepatitis A And Hepatitis B Vaccine [...] Combined (1 of 2 - PCV) 2012 HPV/Cotest 2023 SARS-COV-2 Immunization (3 - 2023- season) 2024 12/16/2020, 11/29/2020 Cervical Cancer Screening (CCS) 02/11/2025 Pap Smear 02/11/2025 02/11/2022 Influenza Immunization (#1) 04/30/2025/0 08/2019, 07/15/2019, 2017, Additional history exists Respiratory Syncytial Virus (RSV) Immunization (Adult) (1 - 1-dose 75+ series) 2068 Meningococcal Immunization (ACWY) Completed 04/08/2012 Hepatitis B Immunization Completed 013, 10/28/2012, 05/25/2012, Additional history exists Human Papillomavirus (HPV) Immunization Completed 12/29/2013, 01/17/2013, 11/30/2012 DTaP/Tdap/Td Immunization Discontinued 2021, 09/30/2016, 04/08/2012 Rotavirus Immunization Aged Out No lo nger eligible based on patient's age to complete this topic Insurance WPS Care Teams Birth Certificate Clerk Relationship Specialty Start Date End Date Raghu Johnson MD [address] [facility] [address] [place] [address] PCP - General Internal Medicine 01/09/22 Markell Ortega MD [address] [place] [phone] Consulting Physician Oncology 01/09/22
--- OUTSIDE RECORDS SUMMARY | 2025-04-03 09:54 | XMS_ITS | Encounter Summary ---
Author Organization [facility] Address [facility] [place] [address] Care Team Providers Care Sales Service Representative Name Role Phone Hayden Eduardo Primary Care Provider [phone] Encounter Details Date Type Department Care Team (Late st Contact Info) Description 05/09/2024 Cityzenith Message Enc [facility] Medical Group Family & Internal Medicine [facility] [address] [place] [address] [place] [address] [place] [address] Walk in clinic apt Social History Tobacco Use Types Packs/Day Years Used Date Smoking Tobacco: Former Cigarettes 1.5 3 0 01/05/2014 - 01/05/2017 Smokeless Tobacco: Never Comments:counseled by Dr Denise kam Alcohol Use Standard Drinks/Week Comments Not Currently 0 (1 standard drink = 0.6 oz pur e alcohol) Havnt drank in years PHQ-2 Answer Date Recorded Patient Health Questionnaire-2 Score 2 09/24/2023 Comments No Sex and Gender Information Value Date Recorded Sex Assigned at Female 10/27/2024 1:42 PM PEDIATRIC ACUTE CARE UNIT NURSE Legal Sex Female 8:33 PM CDT Gender Identity Not on file Sexual Orientation Not on file documented as of this encounter Plan of Treatment Not on file documented as of this encounter Visit Diagnoses Not on filedocumented in this encounter Additional Health Concerns Assessment Noted Time PHQ-9 Depression Total Score: 10 024 9:16 AM PEDIATRIC ACUTE CARE UNIT NURSE documented as of this encounter Care Teams Sales Service Representative Relationship Specialty Start [place] [address] [place] [address] PCP - General Physician Cushion Assembler Medical 09/16/23 documented as of this encounter
--- OUTSIDE RECORDS SUMMARY | 2025-04-03 09:54 | XMS_ITS ---
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 10/07 CT scan resul t See streetcar operator d 02/25 CBC w/ auto diff WBC 10^3/u l 4.0 11.0 5.0 FINAL [facility] ([address] [place] [id number] 0 02/25 CBC w/ auto diff RBC 10^6/u l 3.8 5.2 4.54 FINAL [facility] ([facility], [address] [place] [id number] 0 02/25 CBC w/ auto diff HGB g/dl 11.5 16.0 14.5 FINAL [facility] ([facility], [address] [place] [address] [address] [place] [id number] 0 02/25 CBC w/ auto diff HCT % 35.0 46.0 42.9 FINAL [facility] ([facility], [address] [place] [id number] 0 02/25 CBC w/ auto diff MCV FL 80.0 100.0 94.5 FINAL Hayden Dumont [facility] ([facility])- [place], [address] [place] [address] Ave [address] [place] [id number] 0 02/25 CBC w/ auto diff MCH pg 26.0 34.0 31.9 FINAL Hayden Dumont [facility] ([facility], [address] [place] [address] Ave [address] [place] [id number] 0 02/25 CBC w/ auto diff MCHC g/dL 32.0 36.0 33.8 FINAL Hayden Dumont [facility] ([facility], [address] [place] [address] Ave [address] [place] [id number] 0 02/25 CBC w/ auto diff RDW % 11.5 15.0 12.4 FINAL Hayden Dumont [facility] ([facility], [address] [place] [address] Ave [address] [place] [id number] 0 02/25 CBC w/ auto diff PLT 10^3/u l 140.0 440.0 264 FINAL Hayden Dumont [facility] ([facility], [address] [place] [address] Ave [address] [place] [id number] 0 02/25 CBC w/ auto diff MPV fL 6.5 12.4 11.3 FINAL Hayden Dumont [facility] ([facility])- [place], [address] [place] [address] Ave [address] [place] [id number] 0 02/25 CBC w/ auto diff Poli % % 37.0 80.0 48.0 FINAL Hayden Dumont [facility] ([facility])- [place], [address] [place] [address] Ave [address] [place] [id number] 0 02/25 CBC w/ auto diff LY % % 16.0 51.0 39.6 FINAL Hayden Dumont [facility] ([facility], [address] [place] [address] Ave [address] [place] [id number] 0 02/25 CBC w/ auto diff MO % % 0.0 12.0 8.0 FINAL Hayden Dumont [facility] ([facility], [address] [place] [address] Ave [address] [place] [id number] 0 02/25 CBC w/ auto diff EO % % 0.0 8.0 3.0 FINAL Hayden Dumont [facility] ([facility], [address] [place] [address] Ave [address] [place] [id number] 0 02/25 CBC w/ auto diff BA % % 0.0 3.0 1.2 FINAL Hayden Dumont [facility] ([facility], [address] [place] [address] Ave [address] [place] [id number] 0 02/25 CBC w/ auto diff IG % % 0.0 1.0 0.20 FINAL Hayden Dumont [facility] ([facility], [address] [place] [address] Ave [address] [place] [id number] 0 02/25 CBC w/ auto diff Poli # (ANC) 10^3/u l 1.5 8.0 2.4 FINAL Hayden Dumont [facility] ([facility], [address] [place] [address] Ave [address] [place] [id number] 0 02/25 CBC w/ auto diff LY # 10^3/u l 0.8 4.0 2.0 FINAL Hayden Dumont [facility] ([facility], [address] [place] [address] Ave [address] [place] [id number] 0 02/25 CBC w/ auto diff MO # 10^3/u l 0.0 1.2 0.4 FINAL Hayden Dumont [facility] ([facility], [address] [place] [address] Ave [address] [place] [id number] 0 02/25 CBC w/ auto diff EO # 10^3/u l 0.0 0.3 0.2 FINAL Hayden Dumont [facility] ([facility], [address] [place] [address] Ave [address] [place] [id number] 0 02/25 CBC w/ auto diff BA # 10^3/u l 0.0 0.3 0.1 FINAL Hayden Dumont [facility] ([facility], [address] [place] [address] Ave [address] [place] [id number] 0 02/25 CBC w/ auto diff IG # 10^3/u l 0.0 0.1 0.01 FINAL Hayden Dumont [facility] ([facility], [address] [place] [address] Ave [address] [place] [id number] 0 02/25 Iron profi le Iron ug/dl 30.0 160.0 95 FINAL [facility] ([facility], [address] [place] [id number] 0 02/25 Iron profi le Iron, % satur ation % 15.0 50.0 37 FINAL [facility], [address] [place] [id number] 0 02/25 Iron profi le TIBC ug/dl 228.0 428.0 259 FINAL [facility], [address] [place] [id number] 0 02/25 Jessica tin panel Jessica tin ng/mL 13.0 150.0 54 FINAL [facility], [address] [place] [id number] 0 Medications Date Name Route Dose Frequency [...] 2018 active Problems Diagnosis Status Date of Diagnosis Resolution Date Iron deficiency anemia (disorder) Active Vital Signs [...] Nurse Note Print Location: Unknown Date/Time Printed: 04/03/2025 07:53 ([facility]) Patient: MARAH DIAL Sex: Female : 1995 [...] mg Amount in mL: 17 Pharmacy dispense: [facility]: [id number] Dispense/Waste: 510/0 mg Given Dose/Discard: 510/0 mg Admin Details: IV Administration: Piggyback Start Time: 14:06, Entered By: Hannah Weems RN, Stop Time: 14:37, Entered By: Hannah Weems RN Admix Fluid: 0.9 % sodium chloride, Admix Fluid Volume: 100mL, Total Volume: 127mL * Nurse Note for: 09-AUG-20 [facility] Nurse Note Print Location: Unknown Date/Time Printed: 04/03/2025 07:53 ([facility]) Patient: MARAH DIAL Sex: Female : 1995 [...] mg Amount in mL: 17 Pharmacy dispense: [facility]: [id number] Dispense/Waste: 510/0 mg Given Dose/Discard: 510/0 mg Admin Details: IV Administration: Piggyback, Comments: Pt observed for 30 min post infusion Start Time: 13:14, Entered By: Mahnaz Silvestre RN, Stop Time: 13:44, Entered By: Mahnaz Silvestre RN Admix Fluid: 0.9 % sodium chloride, Admix Fluid Volume: 100mL, Total Volume: 127mL * Nurse Note for: 13-JUN-19 [facility] Nurse Note Print Location: Unknown Date/Time Printed: 04/03/2025 07:54 ([facility]) Patient: MARAH DIAL Sex: Female : 1995 [...] mg Amount in mL: 17 Pharmacy dispense: [facility]: [id number] Dispense/Waste: 510/0 mg Given Dose/Discard: 510/0 mg Start Time: 16:00, Entered By: Dimple Meza RN, Stop Time: 16:30, Entered By: Dimple Meza RN Admix Fluid: 0.9 % sodium chloride, Admix Fluid Volume: 100mL, Total Volume: 127mL
--- OUTSIDE RECORDS SUMMARY | 2025-04-03 09:54 | XMS_ITS | Encounter Summary ---
Author Organization [facility] Address [address] [place] [address] Care Team Providers Care Cigarette Machine Filler Name Role Phone Raghu Johnson MD Primary Care Provider [phone] Hayden Eduardo Primary Care Provider [phone] Encounter Details Date Type Department Care Team (Late st Contact Info) Description 07/06/2023 [place] Technologiest Message Enc [facility] Multispecialty Care - [place] [address] [address] [place], [place] [id number] Raghu Johnson MD [address] [place] [address] [address] [place] [address] Neck Social History Tobacco Use Types Packs/Day Years Used Date Smoking Tobacco: Former Cigarettes 1.5 3 0 01/05/2014 - 01/05/2017 Smokeless Tobacco: Never Comments:counseled by Dr Denise kam Alcohol Use Standard Drinks/Week Comments Not Currently 0 (1 standard drink = 0.6 oz pur e alcohol) Havnt drank in years PHQ-2 Answer Date Recorded Patient Health Questionnaire-2 Score 2 07/07/2023 Comments No Sex and Gender Information Value Date Recorded Sex Assigned at Female 10/27/2024 1:42 PM 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 Question Answer Date of Assessment Author Status Little interest or pleasure in doing things Several days 07/07/2023 3:06 PM [place] MA Activ e Feeling down, depressed, or hopeless Several days 07/07/2023 3:06 PM Paula Pike M A Active Patient Health Questionnaire-2 Score 2 07/07/2023 3:06 PM Paula Pike MA Active * Question Answer Date of Assessment Author Status Trouble falling or staying asleep, or sleeping too much Several days 07/07/2023 3:06 PM Paula Pike MA Active Feeling tired or having little energy Nearly every day 07/07/2023 3:06 PM Paula Pike MA Active Poor appetite or overeating More than half the days 07/07/2023 3:06 PM Paula Pike MA Active Feeling bad about yourself - or that you are a failure or have let yourself or your family down Not at all 07/07/2023 3:06 PM Paula Pike MA Active Trouble concentrating on things, such as reading the newspaper or watching television Not at all 07/07/2023 3:06 PM Paula Pike MA Active Moving or speaking so slowly that other people could have noticed? Or the opposite - being so fidgety or restless that you have been moving around a lot more than usual. Several days 07/07/2023 3:06 PM Paula Pike MA Active Thoughts that you would be better off or hurting yourself in some way Not at all 07/07/2023 3:06 PM Paula Pike MA Active Patient Health Questionnaire-9 Score 9 07/07/2023 3:06 PM Paula Pike MA Active * If you checked off any problems on this questionnaire so far, Question Answer Date of Assessment Author Status How difficult have these problems made it for you to do your work, take care of things at home, or get along with other people? Not difficult at all 07/07/2023 3:06 PM Paula Pike MA Active * Over the last 2 weeks, how often have you been bothered by any of the following problems? Question Answer Date of Assessment Author Status Feeling nervous, anxious, or on edge 1 07/07/2023 3:06 PM Paula Pike MA Activ e Not being able to stop or control worrying 1 07/07/2023 3:06 PM Paula Pike MA Acti ve Worrying too much about different things 1 07/07/2023 3:06 PM Paula Pike MA Acti ve Trouble relaxing 0 07/07/2023 3:06 PM Paula Pike MA Active Being so restless that it is hard to sit still 0 07/07/2023 3:06 PM Paula Pike MA Act baljeet Becoming easily annoyed or irritable 1 07/07/2023 3:06 PM Paula Pike MA Activ e Feeling afraid as if something awful might happen 1 07/07/2023 3:06 PM Kym Pike MA Active YUMI-7 Total Score 5 07/07/2023 3:06 PM Paula Pike MA Active documented as of this encounter Plan of Treatment Not on file documented as of this encounter Visit Diagnoses Not on filedocumented in this encounter Additional Health Concerns Infection Onset Date Last Indicated Resolved Time COVID-19 Rule Out 05/04/2024 05/04/2024 05/04/2024 12:18 PM CDT Assessment Noted Time PHQ-9 Depression Total Score: 13 022 9:45 AM CDT documented as of this encounter Care Teams Cigarette Machine Filler Relationship Specialty Start Date End Date Raghu Johnson MD [address] [address] PCP - General INTERNAL MEDICINE 01/02/22 09/15/23 [place] [address] [place] [address] PCP - General Physician Memorial Counselor Medical 09/16/23 documented as of this encounter
--- OUTSIDE RECORDS SUMMARY | 2025-04-03 09:54 | XMS_ITS | Encounter Summary ---
Author Organization [facility] Address [facility] [place] [address] Care Team Providers Care Telephone Sterilizer Name Role Phone Raghu Johnson MD Primary Care Provider [phone] Hayden Eduardo Primary Care Provider [phone] Encounter Details Date Type Department Care Team (Late st Contact Info) Description 06/23/2022 CipherOpticst Message Enc [facility] Multispecialty Care - [place] [address] [address] [place], [place] [id number] Raghu Johnson MD [address] [place] [address] [address] [place] [address] Topiramate Social History Tobacco Use Types Packs/Day Years [...] Sex Assigned at Female 10/27/2024 1:42 PM 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 No / Unsure 06/19/2022 12:46 PM CDT documented as of this encounter Plan of Treatment Not on file documented as of this encounter Visit Diagnoses Not on filedocumented in this encounter Additional Health Concerns Infection Onset Date Last Indicated Resolved Time COVID-19 Rule Out 05/04/2024 05/04/2024 05/04/2024 12:18 PM CDT Assessment Noted Time PHQ-9 Depression Total Score: 13 022 9:45 AM CDT documented as of this encounter Care Teams Telephone Sterilizer Relationship Specialty Start Date End Date Raghu Johnson MD [address] [address] PCP - General INTERNAL MEDICINE 01/02/22 09/15/23 [place] [address] [place] [address] PCP - General Physician Group Director Medical 09/16/23 documented as of this encounter
--- OUTSIDE RECORDS SUMMARY | 2025-04-03 09:54 | XMS_ITS ---
Author Name Interface, [id number] lity Address [address] [place] [address] Organization [facility] Address [address] [place] [id number] Allergies and Adverse Reactions Medication/Group Name Reaction [...] Print Location: Unknown Date/Time Printed: 04/03/2025 07:54 ([facility]) Patient: MARAH DIAL Sex: Female : [...] mL: 17 Pharmacy dispense: [facility]: [id number] Dispense/Waste: 510/0 mg Given Dose/Discard: 510/0 mg Admin Details: IV Administration: Piggyback Start Time: 14:06, Entered By: Hannah Weems RN, Stop Time: 14:37, Entered By: Hannah Weems RN Admix Fluid: 0.9 % sodium chloride, Admix Fluid Volume: 100mL, Total Volume: 127mL
--- OUTSIDE RECORDS SUMMARY | 2025-04-03 09:54 | XMS_ITS | Continuity of Care Document ---
Author Name [facility] Organization [facility] Care Team Providers Care Health Care / Medical Job Titles Name Role Phone [facility] Unavailable Unavailable Problems Combined list of problems from Department of Defense and Veterans Affairs facilities. It does not include entries that were removed or entered in error. Problem Status Onset Date Problem Type Date of Resolution Comments Source Asthma Active Condition [facility] Depression Active Condition [facility] Disorder of pituitary gland Active Condition [facility] Dyspareunia Active Condition [facility] Eczema Active Condition [facility] Gluten sensitivity Active Condition [facility] Hemorrhoids Active Condition [facility] Hypothyroidism Active Condition [facility] Pituitary cyst Active Condition Jul 302018 Entered By: YARELIS QUINTERO Comment: see Endo notes - plan for repeat MRI in 2018 Entered By: YARELIS QUINTERO Comment: pituitary MRI, prolactin, TSH, free T4, BMP for screening. [facility] Entered By: YARELIS QUINTERO Comment: patient instructed by Endo to call them at that time [facility] Posttraumatic stress disorder Active Condition [facility] Routine gynecologic examination done Active Condition Jul 01 7 Entered By: YARELIS QUINTERO Comment: PAP 11/17/16 - normal, HPV neg (scanned into [place])Aug 12, 2018 Entered By: YARELIS QUINTERO Comment: 03/29/2018 PAP: epithelial cell abno, recommended PAP+HPV in 1 year [facility] Urinary incontinence Active Condition [facility] Vitamin D deficiency Active Condition [facility] CONJUNCTIVITIS Active Condition [facility] pelvic pain Active Condition [facility] ADJUSTMENT DISORDER WITH ANXIETY Active Condition [facility] earache Active Condition [facility] Cerv Pap Smear (+) Atyp Squamous Cells Undetermined Signif Active Condition [facility] HUMAN PAPILLOMA VIRUS INFECTION Active Condition [facility] history currently nursing Inactive Condition [facility] URGE AND STRESS INCONTINENCE Active Condition [facility] DYSMENORRHEA Active Condition [facility] PERINEAL LACERATION DURING DELIV 2ND-DEGREE VAGINAL MUSCLES Active Condition [facility] VITAMIN D DEFICIENCY Active Condition [facility]D IRON DEFICIENCY ANEMIA Active Condition [facility] joint pain, localized in the right wrist Active Condition [facility] Need For Vaccination Human Papilloma Virus Inactive Condition [facility] PERINEAL LACERATION DURING DELIVERY - DELIVERED Inactive Condition DoD Patient Counseling: Inactive Condition D oD EXCESS WT GAIN IN PREG- ANTEPARTUM COND OR PRIOR COMP DELIV Active Condition [facility]D PREG COMPLICATIONS: ANTEPARTUM COND OR PRIOR COMP DELIVERY Inactive Condition DoD skin: a rash [as Sx] Active Condition [facility]D PUPP Active Condition DoD 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 DoD VISUAL DISTURBANCES Active Condition Do D NO PSYCHIATRIC DIAGNOSIS OR CONDITION ON AXIS I Inactive Condition DoD ACNE Inactive Condition DoD visit for: exam Inactive Condition DoD sleep disturbances Active Condition DoD visit for: examination of subpopulation Inactive Condition DoD lower back pain Active Condition DoD Brace Inactive Condition DoD Supervision Of Normal Inactive Condition DoD LOW IMPLANTATION OF PLACENTA Inactive Condition DoD Laboratory Studies Inactive Condition Do D UPPER RESPIRATORY INFECTION Inactive Condition DoD DERMATITIS Active Condition DoD headache Inactive Condition DoD Inactive Condition DoD gastrointestinal symptoms Inactive Condition DoD PHASE OF LIFE OR LIFE CIRCUMSTANCE PROBLEM Active Condition DoD visit for: screening exam malignant neoplasm breast Inactive Condition DoD visit for: screening exam venereal disease Inactive Condition DoD visit for: screening exam depression Inactive Condition DoD NORMAL CHECKUP - INITIAL Inactive Condition DoD Supervision Of Normal First Inactive Condition DoD Test Positive Inactive Condition DoD Anticipatory Guidance: Inadequate Physical Activity Inactive Condition DoD NORMAL EXAMINATION Inactive Condition Do D tooth pain Active Condition DoD PHARYNGITIS Active Condition DoD allergies Active Condition DoD SUPERFICIAL INJURY - NONVENOMOUS INSECT BITE OF HAND Inactive Condition DoD ECZEMA Inactive Condition DoD breast pain Active Condition [facility] Gynecologic Services Contraceptive General Counseling Inactive Condition DoD Body Mass Index Inactive Condition DoD Overweight Active Condition DoD Dietary Counseling Pertaining To Specific Condition Inactive Condition [facility] Gynecologic Service Prescrip Of Contracept Agent - Repeat Rx Inactive Condition DoD abdominal pain in the right lower belly (RLQ) Active Condition DoD METRORRHAGIA Active Condition DoD nausea Active Condition DoD ANOVULATORY BLEEDING Active Condition DoD visit for: occupational health / fitness exam Inactive Condition DoD visit for: administrative purpose Inactive Condition DoD BRITO SPLINT Inactive Condition DoD Vaccines Prophylactic Need Against Influenza Inactive Condition DoD ALLERGIC RHINITIS Active Condition DoD ACUTE BRONCHITIS Inactive Condition DoD ASSESS PATIENT CONDITION WORK-RELATED OCCUPATIONAL DISEASE Inactive Condition DoD Patient Education - Injury Prevention Inactive Condition DoD visit for: ears / hearing exam Inactive Condition DoD Vaccines Prophylactic Need Against Viral Diseases Inactive Condition DoD Vaccines Prophylactic Need Against Bacterial Diseases Inactive Condition DoD Need For Vaccination Poliomyelitis Inactive Condition DoD Vaccines Prophylactic Need Against DTP Inactive Condition DoD Need For Vaccination Chickenpox (Active) Inactive Condition DoD Need For Vaccination Hepatitis A And Hepatitis B Inactive Condition [facility] Vaccines Prophylactic Need Against Bacterial Diseases Meningococcal Inactive Condition [facility] visit for: services physical Inactive Condition [facility] Test Inactive Condition [facility] Test Negative Inactive Condition [facility] Blood Typing Inactive Condition [facility] visit for: screening exam pulmonary tuberculosis Inactive Condition [facility] Medications Combined list of outpatient medications from Department of Defense and Veterans Affairs facilities.Medications provided include 1) outpatient medications from the last 15 months, and 2) patient-reported medications. Medication Details Route Status Patient Instructions Prescription Expires Prescription Number Last Dispense Date Ordering Provider Order Date Order Qty Source ALBUTEROL SO4 90MCG/ACTUA T (CFC-F) INHL,ORAL,6 .7GM INHALE 1 PUFF BY MOUTH FOUR TIMES A DAY NEEDED RESPIR ATORY (INHAL ATION) ACTIVE Isidoro QUINTERO 2019 [facility] AMOXICILLIN (AMOXICILLI N), 875MG, TABLET, ORAL, AUROBINDO PHARM, 100 ea. BOTTLE Active [id number] 2023 20 Pharmac y Data Transac tion Service Facilit y CHOLECALCIF LAKESHIA 25MCG (1,000UNIT) TAB TAKE TWO TABLETS BY MOUTH EVERY DAY ORAL ACTIVE Isidoro QUINTERO 2016 [facility] FERROUS SULFATE TAB TAKE ACTIVE Isidoro QUINTERO 2020 [facility] LEVOTHYROXI NE NA 25MCG TAB (SYNTHROID) TAKE ONE TABLET BY MOUTH EVERY DAY ORAL ACTIVE Isidoro QUINTERO 2019 [facility] MULTIVITAMI NS W/MINERALS CAP/TAB TAKE ONE TABLET BY MOUTH EVERY DAY ORAL ACTIVE Isidoro QUINTERO 2020 [facility] PREDNISONE (prednisone ), 20 MG, TABLET, ORAL, NOVITIUM/AN I PH, 500 ea. BOTTLE Active [id number] 2023 9 Pharmac y Data Transac tion Service Facilit y Allergies, Adverse Reactions, Alerts Combined list of allergies from Department of Defense and Veterans Affairs facilities. It does not include entries that were removed or entered in error. Substance Category Reaction Severity Reaction type Status Date Reported Comments Source GLUTENS Propensity to adverse reactions to food (finding) Abdominal pain, Abdominal bloating active 7 [facility] No Known Allergies Drug allergy (disorder) active 2 [facility] [place] [place] Immunizations Combined list of available immunizations from the Department of Defense and Veterans Affairs facilities. Immunization Series Date Given Administered By Site Reaction Lot Number CVX Code Drug Secret Code Expert Status Comments Source Tdap 2021 TERRI, () Not Given Tdap DoD MMR 2021 ALUL, () Not Given MMR [facility] COVID-19 (PFIZER), MRNA, LNP-S, PF, 30 MCG/0.3 ML DOSE 2 2020 208 complet ed PFR; [id number]; 1 [facility] COVID-19 (PFIZER), MRNA, LNP-S, PF, 30 MCG/0.3 ML DOSE 1 2020 208 complet ed PFR; [id number]; 1 [facility] INFLUENZA, UNSPECIFIED FORMULATION 2019 88 complet ed [facility] influenza, injectable, quadrivalent- pf 2018 [id number] 150 Seqirus complet ed influenza , injectabl e, quadrival ent-pf 07/15/19 Given Ambulat ory Pharmac y influenza, injectable, quadrivalent- pf 2016 [id number] 150 GlaxoSmithKli ne complet ed influenza , injectabl e, quadrival ent-pf 06/26/17 Given Ambulat ory Pharmac y INFLUENZA, SEASONAL, INJECTABLE, PRESERVATIVE FREE 2016 140 complet ed [facility] TDAP 2016 115 complet ed [facility] influenza, seasonal, injectable-pf 2015 [id number] Seqirus complet ed influenza , seasonal, injectabl e-pf 07/05/16 Given Ambulat ory Pharmac y tuberculin purified protein derivative 2015 Body, whole TRANSCR IBED 96 complet ed tuberculi n purified protein derivativ e 09/30/15 Given Ambulat ory Pharmac y tuberculin skin test; purified protein derivative solution, intradermal 0 2015 [place] 96 Transcribed (TRS) complet ed tuberculi n skin test; purified protein derivativ e solution, intraderm [facility] influenza, live, intranasal,qu adrivalent 2014 [id number] 149 [employer] comple t ed influenza , live, intranasa l,quadriv alent 05/27/15 Given Ambulat ory Pharmac y influenza, live, intranasal, quadrivalent 0 2014 [id number] 149 MedILifebooker.com, Inc. (MED) complet ed influenza , live, intranasa l, quadrival ent DoD influenza, live, intranasal,qu adrivalent 2013 Body, whole TRANSCR IBED 149 complet ed influenza , live, intranasa l,quadriv alent 05/22/14 Given Ambulat ory Pharmac y influenza, live, intranasal, quadrivalent 0 2013 Unknown, Provider 149 Transcribed (TRS) complet ed influenza , live, intranasa l, quadrival ent DoD Human Papillomaviru s,quadrivalen t(HPV4) 2013 zzLef t Arm [id number] 62 Merck & Company Inc complet ed Human Papilloma virus,kyra drivalent (HPV4) 12/29/13 Given Ambulat ory Pharmac y human papilloma virus vaccine, quadrivalent 1 2013 RONALDO SMITH [id number] 62 Merck (MSD) compl et ed human papilloma virus vaccine, quadrival ent DoD influenza, seasonal, injectable 2012 zzLef t Arm [id number] 141 sanofi pasteur complet ed influenza , seasonal, injectabl e 06/06/13 Given Ambulat ory Pharmac y Influenza, seasonal, injectable 1 2012 SANJAY CHARLES E [id number] 141 Sanofi Pasteur ([facility]) complet ed Influenza , seasonal, injectabl e DoD Human Papillomaviru s,quadrivalen t(HPV4) 2012 [id number] 62 Merck & Company Inc complet ed Human Papilloma virus,kyra drivalent (HPV4) 01/17/13 Given Ambulat ory Pharmac y human papilloma virus vaccine, quadrivalent 0 2012 [id number] 62 Merck (MSD) complet ed human papilloma virus vaccine, quadrival ent DoD hepatitis A-hepatitis B vaccine 2012 Stephanie Arm [id number] 104 [facility] complet ed hepatitis A-hepatit is B vaccine 11/30/12 Given Ambulat ory Pharmac y Human Papillomaviru s,quadrivalen t(HPV4) 2012 zzRig ht Arm [id number] 62 Merck & Company Inc complet ed Human Papilloma virus,kyra drivalent (HPV4) 11/30/12 Given Ambulat ory Pharmac y human papilloma virus vaccine, quadrivalent 1 2012 OG MENDOZA [id number] 62 Merck (MSD) compl et ed human papilloma virus vaccine, quadrival ent DoD hepatitis A and hepatitis B vaccine 4 2012 OG MENDOZA [id number] 3DA 104 SmithKline (SKB) complet ed hepatitis A and hepatitis B vaccine DoD tuberculin purified protein derivative 2012 zzLef t Arm [id number] 96 sanofi pasteur complet ed Patient Tolerance : Negative Ambulat ory Pharmac y tuberculin skin test; purified protein derivative solution, intradermal 0 2012 RITZADE, LAVIVONE T [id number] 96 Sanofi Pasteur (PMC) complet ed tuberculi n skin test; purified protein derivativ e solution, intraderm al DoD hepatitis A-hepatitis B vaccine 2012 [id number] 1AA 104 GlaxoSmithKli ne complet ed hepatitis A-hepatit is B vaccine 10/28/12 Given Ambulat ory Pharmac y hepatitis A and hepatitis B vaccine 3 2012 [id number] 1AA 104 SmithKline (SKB) complet ed hepatitis A and hepatitis B vaccine DoD influenza virus vaccine, live 2011 [id number] 111 Atlantia [employer] Inc comple t ed influenza virus vaccine, live 05/25/12 Given Ambulat ory Pharmac y hepatitis A-hepatitis B vaccine 2011 [id number] 1AA 104 GlaxoSmithKli ne complet ed hepatitis A-hepatit is B vaccine 05/25/12 Given Ambulat ory Pharmac y varicella virus vaccine 2011 [id number] 21 Merck & Company Inc complet ed varicella virus vaccine 05/25/12 Given Ambulat ory Pharmac y varicella virus vaccine 2 2011 [id number] 21 Merck (MSD) complet ed varicella virus vaccine DoD hepatitis A and hepatitis B vaccine 2 2011 [id number] 1AA 104 SmithKline (SKB) complet ed hepatitis A and hepatitis B vaccine DoD influenza virus vaccine, live, attenuated, for intranasal use 1 2011 [id number] 111 Rem[employer] Systems, Inc. (MED) complet ed influenza virus vaccine, live, attenuate d, for intranasa l use DoD adenovirus vaccine, live 2011 [id number] 143 Teva Pharmaceutica ls complet ed adenoviru s vaccine, live 04/08/12 Given Ambulat ory Pharmac y tetanus, diphtheria, acellular pertu is 2011 [id number] 7BC 115 GlaxoSmithKli ne complet ed tetanus, diphtheri a, acellular pertussis 04/08/12 Given Ambulat ory Pharmac y meningococcal A,C,Y,W-135 (MCV4P) 2011 [id number] 114 sanofi pasteur complet ed meningoco ccal A,C,Y,W-1 35 (MCV4P) 04/08/12 Given Ambulat ory Pharmac y hepatitis A-hepatitis B vaccine 2011 [id number] 4BA 104 GlaxTrinity HealthithKli ne complet ed hepatitis A-hepatit is B vaccine 04/08/12 Given Ambulat ory Pharmac y varicella virus vaccine 2011 [id number] 21 Merck & Company Inc complet ed varicella virus vaccine 04/08/12 Given Ambulat ory Pharmac y poliovirus vaccine, inactivated 2011 H1330 10 sanofi pasteur complet ed polioviru s vaccine, inactivat ed 04/08/12 Given Ambulat ory Pharmac y TDAP (HISTORICAL) 2011 115 complet ed [facility] measles, mumps and rubella virus vaccine 1 2011 UNK 03 Unknown (UNK) Not Given measles, mumps and rubella virus vaccine DoD poliovirus vaccine, inactivated 1 2011 H1330 10 Sanofi Pasteur (PMC) complet ed polioviru s vaccine, inactivat ed DoD varicella virus vaccine 1 2011 [id number] 21 Merck (MSD) complet ed varicella virus vaccine DoD hepatitis A and hepatitis B vaccine 1 2011 [id number] 4BA 104 TesoRx Pharma (SKB) complet ed hepatitis A and hepatitis B vaccine DoD meningococcal polysaccharid e (groups A, C, Y and W-135) diphtheria toxoid conjugate vaccine (MCV4P) 1 2011 [id number] 114 Sanofi Pasteur (PMC) complet ed meningoco ccal polysacch aride (groups A, C, Y and W-135) diphtheri a toxoid conjugate vaccine (MCV4P) DoD tetanus toxoid, reduced diphtheria toxoid, and acellular pertu is vaccine, adsorbed 1 2011 [id number] 7BC 115 [place]line (SKB) complet ed tetanus toxoid, reduced diphtheri a toxoid, and acellular pertussis vaccine, adsorbed DoD Adenovirus, type 4 and type 7, live, oral 1 2011 [id number] 143 [facility] (BRR) complet ed Adenoviru s, type 4 and type 7, live, oral DoD tuberculin purified protein derivative 2011 [id number] 96 sanofi pasteur complet ed tuberculi n purified protein derivativ e 04/06/12 Given Ambulat ory Pharmac y tuberculin skin test; purified protein derivative solution, intradermal 1 2011 Unknown, Provider [id number] 96 Sanofi Pasteur (PMC) complet ed tuberculi n skin test; purified protein derivativ e solution, intraderm al DoD Encounters Combined list of: 1) Encounters from Department of Veterans Affairs facilities going backup to the last 18 months, not all VA inpatient encounters are included; 2) Encounters from the Department of Defense facilities going backup to 280 months. Location Location Details Encounter Type Encounter Number Reason For Visit Attending Provider ADM Date DC Date Status Disposition Source [facility] MARCO Phillips(IEP Optometry ) OUTPATIENT [id number] PAWEL OLIVIA 04/06 Released w/o Limitations [facility] Jovanni Webster [facility] MARCO Grover(IEP Optomet ry) [facility] Jovanni Webster [facility] MARCO Grover(IEP Soldiers Initial Entry) OUTPATIENT [id number] MOON ULLOA 04/06 Released w/o Limitations MAR[facility] Max(IEP Olanta s Initial Entry) MAR[facility] Max(IEP Hearing Conservat ion Exam) OUTPATIENT [id number] 581 WENDY RUCKER 04/07 Released w/o Limitations [facility] Max(IEP Hearing Conserv ation Exam) [facility] Jovanni Webster [facility] MARCO Grover(IEP Soldiers Initial Entry) OUTPATIENT [id number] Notes Entered by: SUHAS MCMAHON 08 Apr 2012 0456 ------- ------- ------- ------- -- [id number] DAY 3 BABITA GLENN YAO 04/08 [facility] [place](C-TMC Er Module) OUTPATIENT [id number] sore throat ERLIN JASMINE 05/03 Released w/o Limitations [facility] LeonMARCO Henriquez(C-TM C Er Module) [facility] MARCO Arauz(IEP Soldiers Initial Entry) OUTPATIENT [id number] Notes Entered by: Prashant GONZALEZ 25 May 2012 1121 ------- ------- ------- ------- -- Greg 1-48 F/T/V SCARLET ALVARADO 05/25 [facility] Limitations [facility] [place](IEP Olanta s Initial Entry) [place] [address](FMS Sulma [place] Old) OUTPATIENT [id number] SCALL SANDY HUGHES L 07/05 Released with Work/Duty Limitations [facility] [place] [address](F MS Sulma [place] Old) [place] [address]([facility] Primary Care [facility]) OUTPATIENT [id number] Notes Entered by: Paras MEHTA 28 Oct 2012 0630 ------- ------- ------- ------- -- Imms update OLE MEHTA 10/28 Released w/o Limitations [facility] [place] [address](S [facility]) [facility], [place] [address]([facility] Primary Care [facility]) OUTPATIENT [id number] IMMUNIZ BEVERLY MARIA 10/28 Released w/o Limitations [facility] [place] [address]([facility]) [facility] [place] [address]([facility] Primary Care Clinic [facility]) OUTPATIENT [id number] OVERSEA S BEVERLY CRAIG 10/31 Released w/o Limitations [facility] [place] [address]([facility]) [facility] [place] [address](Med ical Examinati on Old) OUTPATIENT [id number] pt 2 imtiaz ARIEORLANDO MOLINA 11/01 Released w/o Limitations [facility] [place] [address](M edical Examina tion Old) [facility](L Occupatio nal Health) [facility] [id number] [facility]C WILMAN SCHULER 11/28 Released w/o Limitations [facility] Occupat ional Health) [facility](L Emergency Room) OUTPATIENT [id number] Notes Entered by: ADRY JOHNSON 16 Dec 2012 0744 ------- ------- ------- ------- -- 17 y/o F ASHLEY Hudson 12/16 Released with Work/Duty Limitations [facility](L Emergen cy Room) [facility](ZZZAM [id number] B) OUTPATIENT [id number] was seen in ER/need s profile YANN ANSARI 12/20 Released w/o Limitations [facility](ZZZ [id number] TeamB) [facility] [id number] annual PAP and well woman DANA GILLESPIE 12/29 Released w/o Limitations [facility] Womens Health) [facility] Nutrition Care) OUTPATIENT [id number] PHOENIX JOSÉ 01/16 Released w/o Limitations [facility] Nutriti on Care) [facility] [id number] B) OUTPATIENT [id number] Physica l for weight program YANN ANSARI 01/26 Released w/o Limitations [facility] [id number] TeamB) [facility]) OUTPATIENT [id number] BIRTHCO NAKIAOL TERI BROUSSARD 01/27 Released w/o Limitations [facility]) [facility] Emergency Room) OUTPATIENT [id number] Notes Entered by: WILLIAN SCHWARTZ 04 Mar 2013 1020 ------- ------- ------- ------- -- 17 y/o F, cold symptom s, dental pain LUCY MUHAMMAD 03/04 Released w/o Limitations [facility] Emergen cy Room) [facility] Emergency Room) OUTPATIENT [id number] Notes Entered by: WILLIAN SCHWARTZ 05 Mar 2013 1537 ------- ------- ------- ------- -- 17 y/o F, cough, sore throat /RETURN ROSALINDA WARE V 03/05 Released w/o Limitations [facility] Emergen cy Room) [facility] Nutrition Care) OUTPATIENT [id number] PHOENIX JOSÉ 03/21 Released w/o Limitations [facility](L Nutriti on Care) [facility](L Physical Therapy) OUTPATIENT [id number] [employer] DENA CARLOS JR 03/28 Released w/o Limitations [facility] Physica l Therapy ) [facility]) OUTPATIENT [id number] control GERBER WOO 04/03 Released w/o Limitations [facility](ZZZ [facility]SL Womens Health) [facility] Nutrition Care) OUTPATIENT [id number] STALIN BASSETT 04/06 Released w/o Limitations [facility] Nutriti on Care) [facility] Nutrition Care) OUTPATIENT [id number] ARNAVPHOENIX Elena 04/13 Released w/o Limitations [facility] Nutriti on Care) [facility] [id number] B) TELE CONSULT [id number] Notes Entered by: JOSEPH GRIFFITH 17 Apr 2013 0844 ------- ------- ------- ------- -- Had pregnan cy (urin) test initiat ed by dental clinic, test positiv e,OB ref, KAJAL Morse 04/17 [facility](ZZZ [id number] TeamB) [facility] [id number] B) OUTPATIENT [id number] needs profile /pregna nt YANN ANSARI 04/20 [facility]ased w/o Limitations [facility] [id number] TeamB) [facility](LSL Beekeeper) OUTPATIENT [id number] Pregnan cy Test Positiv e TYLORRADHAKIMBERLY 04/27 Released w/o Limitations [facility](LSL Beekeeper) [facility] Beekeeper) OUTPATIENT [id number] New OB HILDA QUARLES 05/15 Released w/o Limitations [facility](LSL Beekeeper) [facility] Nutrition Care) OUTPATIENT [id number] Notes Entered by: ARMEN JAMES 16 May 2013 1421 ------- ------- ------- ------- -- STALIN Steel 05/16 Released w/o Limitations [facility] Nutriti on Care) [facility] [id number] B) TELE CONSULT [id number] Notes Entered by: NELIDA MCDANIELS 06 Jun 2013 1241 ------- ------- ------- ------- -- Request to update pregnan cy profile TETO FIELDLEO 06/06 [facility](ZZZ [id number] TeamB) [facility] Beekeeper) TELE CONSULT [id number] Notes Entered by: INGRIS SNIDER 06 Jun 2013 1408 ------- ------- ------- ------- -- Profile update, new PERRY RADHA SNIDER 06/06 [facility](LSL Beekeeper) [facility] Emergency Room) OUTPATIENT [id number] Notes Entered by: MARVIN VELAZQUEZ 13 Jun 2013 2108 ------- ------- ------- ------- -- 17 yoF. Deisy angelo pain and nausea ROSALINDA WARE V 06/13 Released w/o Limitations [facility] Emergen cy Room) [facility] Hearing Conservat ion) OUTPATIENT [id number] MEDPROS ALIZE ALCALA 06/30 Released w/o Limitations [facility] Hearing Conserv ation) [facility] Beekeeper) OUTPATIENT [id number] Off Cycle visit YARELIS WINKLER 07/03 Released w/o Limitations [facility](LSL Beekeeper) [facility](ZZZAM SB17LZuty B) OUTPATIENT [id number] sleep issues, 0151-64 [id number] YANN ANSARI 07/13 Released w/o Limitations [facility](ZZZ KVFF31W TeamB) [facility] ZC72CKqma B) OUTPATIENT [id number] Quickca re uri YANN ANASRI 08/01 Sick at Home/Quarter s [facility](ZZZ LLRI93P TeamB) [facility](ZZZ OA33SAuil B) OUTPATIENT [id number] still having Uri symptom s SAM MCALLISTER 08/07 Released w/o Limitations [facility] OZXX33R TeamB) [facility](LSL Beekeeper) TELE CONSULT [id number] Notes Entered by: YARELIS SUE 07 Aug 2013 1258 ------- ------- ------- ------- -- Low lying placent marisa YARELIS WINKLER 08/07 [facility](LSL Beekeeper) [facility](LSL Beekeeper) TELE CONSULT [id number] Notes Entered by: Keri ANDERSON 08 Aug 2013 0931 ------- ------- ------- ------- -- Low lying Placent YARELIS Martinez 08/08 [facility](LSL Beekeeper) [facility](LSL L&D Observati on Visit-Phy ) OUTPATIENT [id number] Notes Entered by: DIXON MARTINS 09 Aug 2013 0742 ------- ------- ------- ------- -- lower abd pain ALDAIR BLANDON 08/09 Released w/o Limitations [facility](LSL L&D Observa tion Visit-P hy) [facility] Brace Shop) OUTPATIENT [id number] NATHALIA Aguirre 08/09 Released w/o Limitations [facility] Brace Shop) [facility](ZZZAM IG54RLyuk B) OUTPATIENT [id number] sore throat/ cold pt pregnan t 21 weeks YANN ANSARI 08/15 Released w/o Limitations [facility](ZZZ GPWV44C TeamB) [facility](LSL Beekeeper) OUTPATIENT [id number] 24 week sydnee WILLAMHILDA Elena 09/04 Released w/o Limitations [facility](LSL Beekeeper) [facility] TL82LKfhp B) OUTPATIENT [id number] Follow up for sore throat. [facility] Barb n. [phone] SAM MCALLISTER 09/19 Released w/o Limitations [facility](ZZZ GRCR81T TeamB) [facility](LSL Beekeeper) OUTPATIENT [id number] 28 week YARELIS Cespedes 10/02 Released w/o Limitations [facility](LSL Beekeeper) [facility](LSL Beekeeper) TELE CONSULT [id number] Notes Entered by: Keri ANDERSON 02 Oct 2013 1452 ------- ------- ------- ------- -- YARELIS Seymour 10/02 [facility](LSL Beekeeper) [facility](L[facility] Optometry ) OUTPATIENT [id number] eye exam. [id number] BARTOLO PATEL 10/03 Released w/o Limitations [facility](LSL Optomet ry) [facility](LSL Beekeeper) OUTPATIENT [id number] visual field changes ROSIE CALI 10/03 Released w/o Limitations [facility](LSL Beekeeper) [facility](LSL Beekeeper) OUTPATIENT [id number] 32wks YARELIS WINKLER 10/27 Released w/o Limitations [facility](LSL Beekeeper) [facility](LSL Beekeeper) TELE CONSULT [id number] Notes Entered by: Keri ANDERSON 30 Oct 2013 0918 ------- ------- ------- ------- -- YARELIS García 10/30 [facility](LSL Beekeeper) [facility](LSL Beekeeper) OUTPATIENT [id number] off cycle visit JOHANNA GAUTHIER 10/30 Released w/o Limitations [facility](LSL Beekeeper) [facility](LSL Beekeeper) OUTPATIENT [id number] off cycle visit HILDA QUARLES 11/01 Released w/o Limitations [facility](LSL Beekeeper) [facility](LSL Beekeeper) TELE CONSULT [id number] Notes Entered by: CLAUDIA FRANK 07 Nov 2013 0836 ------- ------- ------- ------- -- Questio ns concern ing PUPS. RADHA SNIDER 11/07 [facility](LSL Beekeeper) [facility](LSL Beekeeper) TELE CONSULT [id number] Notes Entered by: Keri ANDERSON 17 Nov 2013 0923 ------- ------- ------- ------- -- YARELIS BOWERS 11/17 [facility](LSL Beekeeper) [facility](LSL Beekeeper) TELE CONSULT [id number] Notes Entered by: CLAUDIA FRANK 20 Nov 2013 1010 ------- ------- ------- ------- -- Would like to proceed with inducti on due to PUPS. RADHA SNIDER 11/20 [facility](LSL Beekeeper) [facility](AMH F01A Team A) OUTPATIENT [id number] hemrroi ds/preg MARTHA Zarate 11/22 Released with Work/Duty Limitations [facility](AMH F01A Team A) [facility](LSL Beekeeper) OUTPATIENT [id number] 36 week BILLIE Llamas 11/24 Released w/o Limitations [facility](LSL Beekeeper) [facility](LSL Beekeeper) OUTPATIENT [id number] 38 week BILLIE Llamas 12/11 Released w/o Limitations [facility](LSL Beekeeper) [facility] DIRECT TO [facility] FROM OTHER THAN ER OR APU [id number] MACRINA ARRIOLA 12/12 RETURNED TO DUTY [facility](LSL L&D Observati on Visit-Phy ) OUTPATIENT [id number] labor and deliver y pp triage HILDA QUARLES 12/22 Released w/o Limitations [facility](LSL L&D Observa tion Visit-P hy) [facility](LSL Allergy) OUTPATIENT [id number] Notes Entered by: Melany RINCON 29 Dec 2013 0808 ------- ------- ------- ------- -- Vaccina tion- HPV #3 DANNIELLE AKERS 12/29 Released w/o Limitations [facility](LSL Allergy ) [facility](ZZZAM HN01UNugp B) OUTPATIENT [id number] tonsils ,medica tions, 0151-64 [id number] YANN ANSARI 01/04 Released w/o Limitations [facility](ZZZ HVWD20O TeamB) [facility](ZZZAM BH96LRbkl B) TELE CONSULT [id number] Notes Entered by: NYDIA LATHAM 12 Jan 2014 1451 ------- ------- ------- ------- -- ADAM REFERRA LS TO DERM AND ENT/PCM BARB Goode/ YANN ANSARI 01/12 [facility](ZZZ LVOZ65A TeamB) [facility](LSL Emergency Room) OUTPATIENT [id number] Notes Entered by: WILLIAN SCHWARTZ 19 Jan 2014 1527 ------- ------- ------- ------- -- 18 y/o F, lower abd pain, post-pa rtum CHEIKH BATISTA Jennifer 01/19 Released w/o Limitations [facility](LSL Emergen cy Room) [facility] GB70THdvf B) OUTPATIENT [id number] Annual PHA for 18 y/o female YANN ANSARI Paras 01/23 Released w/o Limitations [facility] EBGQ62S TeamB) [facility] ENT Clinic) OUTPATIENT [id number] TONSILL AR CHARLENE JENKINS 01/29 Released w/o Limitations [facility] ENT Clinic) [facility](LSL Beekeeper) OUTPATIENT [id number] 8 week postpar gus exam HILDA QUARLES 02/06 Released w/o Limitations [facility](LSL Beekeeper) [facility] XA15HBccl B) OUTPATIENT [id number] nursing questio ns/meds for cough YANN ANSARI Paras 02/19 Released w/o Limitations [facility] WPAV99A TeamB) [facility](ZZZLS L Gynecolog y) TELE CONSULT [id number] Notes Entered by: Keri ANDERSON 19 Feb 2014 1455 ------- ------- ------- ------- -- post profile RADHA SNIDER 02/19 [facility](ZZZ L Gynecol ogy) [facility](LSL Neurology ) OUTPATIENT [id number] VISUAL DISTURB ANCES/s SURENDRA Peres 02/22 Released w/o Limitations [facility](LSL Neurolo gy) [facility](LSL Dermatolo gy) OUTPATIENT [id number] COMPOUN D NEVUS// [id number] CLAUDIA PERALES ALMA DELIA 02/27 [facility]ased w/o Limitations [facility] D[facility]y) [facility]07NRbfn [facility]) OUTPATIENT [id number] geri booth COTY YANN Paras 02/28 [facility]ased w/o Limitations [facility] [id number] TeamB) [facility](L[facility] Emergency Room) OUTPATIENT [id number] Notes Entered by: MALLY HODGSON 01 Mar 2014 0128 ------- ------- ------- ------- -- 18y/o F MigrDAYTON Solano 02/28 [facility]ased w/o Limitations [facility] QL86OBywv B) OUTPATIENT [id number] sinus inf, [phone] YANN ANSARI 03/12 Released w/o Limitations [facility] PTRA51P TeamB) [facility] SPR[facility]JJ67FUnxs B) TELE CONSULT [id number] Notes Entered by: BRITTANY CONN 12 Mar 2014 1320 ------- ------- ------- ------- -- Weight BRITTANY CONN 03/12 [facility] JEKE73Q TeamB) [facility] NA19LLhqt B) OUTPATIENT [id number] sinus infecti on/caleb ent refused walk in clinic/ [phone] YANN ANSARI 03/13 [facility]ased w/o Limitations [facility] USUC00O TeamB) [facility] FA69UQuth B) TELE CONSULT [id number] Notes Entered by: BRITTANY CONN 14 Mar 2014 0856 ------- ------- ------- ------- -- profile BRITTANY CONN 03/14 [facility](ZZ [id number] TeamB) [facility] Wellness Theodore) OUTPATIENT [id number] BUCK Keri JOHANNA CUEVAS R 03/16 Released w/o Limitations [facility]) [facility](ZZZ GU25IVfrr B) TELE CONSULT [id number] Notes Entered by: ROMÁN FELDMAN 21 Mar 2014 0717 ------- ------- ------- ------- -- PCM Barb n/ sonyain g and pain in ankle, not able to walk on it/ since 1 week BRITTANY CONN 03/21 [facility](ZZZ HYCA56U TeamB) [facility] AS93VMobd B) OUTPATIENT [id number] right ankle pain JENNIFER BAUTISTA 03/21 Released with Work/Duty Limitations [facility] VQDT07V TeamB) [facility] Wellness Theodore) OUTPATIENT [id number] META RESULTS JOHANNA FRAZIER 03/28 Released w/o Limitations [facility]) [facility](L Pediatric (9A)) TELE CONSULT [id number] Notes Entered by: ALBA TURNER 29 Mar 2014 1052 ------- ------- ------- ------- -- pumping PHOENIX Chou 03/29 [facility](LSL Pediatr ic (9A)) [facility](L Neurology ) OUTPATIENT [id number] f/u SURENDRA MELENDEZ 04/18 Released w/o Limitations [facility](L Neurolo gy) [facility](ZZZ VZ94VFsmk B) TELE CONSULT [id number] Notes Entered by: BRITTANY CONN 19 Apr 2014 1353 ------- ------- ------- ------- -- profile update BRITTANY CONN 04/19 [facility] AEFJ10T TeamB) [facility](ZZZ DJ91PSznl B) OUTPATIENT [id number] consult ation about weight issue. [phone] YANN ANSARI 04/27 Released w/o Limitations [facility] KRXJ44H TeamB) [facility] Well[facility]) OUTPATIENT [id number] 1 Month F/UP JOHANNA CUEVAS 04/27 Released w/o Limitations [facility]) [facility] KE27IMdem B) OUTPATIENT [id number] right wrist pain/2 days [phone] YANN ANSARI 05/04 Released w/o Limitations [facility] HTZZ02J TeamB) [facility] LR81BOllv B) TELE CONSULT [id number] Notes Entered by: BRITTANY CONN 10 May 2014 0808 ------- ------- ------- ------- -- breastf BRITTANY Edmondson 05/10 [facility] ITOU64P TeamB) [facility] DP13RVnvp B) OUTPATIENT [id number] Notes Entered by: BRITTANY CONN 11 May 2014 1021 ------- ------- ------- ------- -- Breastf YANN Christianson 05/11 Released w/o Limitations [facility] BOHQ27W TeamB) [facility] PX05FCurl B) TELE CONSULT [id number] Notes Entered by: BRITTANY CONN 15 May 2014 0913 ------- ------- ------- ------- -- Test result request YANN ANSARI Paras 05/15 [facility] YRCK33X TeamB) [facility] Brace Shop) OUTPATIENT [id number] RT wrist cock up splint MENCHACALAINEY 06/15 Released w/o Limitations [facility] Brace Shop) [facility](LSL Occupatio nal Therapy) OUTPATIENT [id number] Joint pain, localiz ed in the right wrist, [phone] VIKAS HAN Y 07/05 Released w/o Limitations [facility](LSL Occupat ional Therapy ) [facility](ZZZ XH56PZpug B) TELE CONSULT [id number] Notes Entered by: DAIN FIELD 11 Jul 2014 1530 ------- ------- ------- ------- -- KAJAL Lai 07/11 [facility] FTIQ50N TeamB) [facility] UJ24YMgtd B) OUTPATIENT [id number] urinary problem s COTY YANN Crain 07/12 [facility]ased w/o Limitations [facility] HGWX58Z TeamB) [facility](ZZZ JB35BEryk B) TELE CONSULT [id number] Notes Entered by: DAIN FIELD 16 Jul 2014 1405 ------- ------- ------- ------- -- profile BETOYANN SALAMANCA 07/16 [facility] GQMM94E TeamB) [facility]) OUTPATIENT [id number] META TEST, REPEAT EDMOND HAWKINS Y 07/18 Released w/o Limitations [facility]) [facility] Occupatio nal Therapy) OUTPATIENT [id number] per Jj. B VIKAS HAN Y 07/23 [facility]ased w/o Limitations [facility] ) [facility] Urology) OUTPATIENT [id number] URGE AND STRESS INCONTI SENIADAYA CARPIO ANAI Melany 08/01 [facility] w/o Limitations [facility] ) [facility]) OUTPATIENT [id number] F/U VIKAS HAN Y 08/06 [facility] w/o Limitations [facility] Occupat ional Therapy ) [facility](L Beekeeper) OUTPATIENT [id number] PERINEA L LACERAT ION DURING DELIV 2ND-DEG REE VAGINAL MUSCLES SURENDRA MELVIN 08/16 [facility]ased w/o Limitations [facility] Bee[facility]) [facility](ZZZAM WQ09JOksa B) TELE CONSULT [id number] Notes Entered by: SAMIRA HERNANDEZ 21 Aug 2014 1017 ------- ------- ------- ------- -- Request ing labs for plasma donatio n YANN ANSARI 08/21 [facility] LSVF21I TeamB) [facility] VR82FGgyt B) OUTPATIENT [id number] swollen glands/ 2-3 days YANN ANSARI 08/22 [facility]ased w/o Limitations [facility] JYQF79S TeamB) [facility] (9A)) OUTPATIENT [id number] Lactati on PHOENIX TURNERBETH 08/27 [facility]ased w/o Limitations [facility] Pediatr ic (9A)) [facility] DO19XQpcw B) TELE CONSULT [id number] Notes Entered by: DAIN FIELD 31 Aug 2014 1238 ------- ------- ------- ------- -- med refill KEYON BISWAS Marisa 08/31 [facility]([place] 69325B TeamB) [facility](LSL Occupatio nal Therapy) OUTPATIENT [id number] VIKAS HAN Berry 09/03 Released w/o Limitations [facility](LSL Occupat ional Therapy ) [facility] [address]152BTeam B) TELE CONSULT [id number] Notes Entered by: JORDEN PLUMMER 04 Sep 2014 1602 ------- ------- ------- ------- -- breast feeding issue KAJAL FIELD 09/04 [facility] [address]B TeamB) [facility]([place] [address]152BTeam B) TELE CONSULT [id number] Notes Entered by: SAMIRA HERNANDEZ 11 Sep 2014 1412 ------- ------- ------- ------- -- Extend profile for wrist YANN ANSARI 09/11 [facility]([place] [address]B TeamB) [facility] ENT Clinic) OUTPATIENT [id number] TONSILL AR CALCULU S DISCUSS POS SURGERY CHARLENE CASAREZ 09/13 Released w/o Limitations [facility] ENT Clinic) [facility] FH55GAinq B) TELE CONSULT [id number] Notes Entered by: LANA ARMSTRONG 14 Sep 2014 1413 ------- ------- ------- ------- -- follow up YANN ANSARI 09/14 [facility] RM([place] [address]25B TeamB) [facility]([place] [address]152BTeam B) OUTPATIENT [id number] request ing STD check/0 [id number] YANN ANSARI 09/18 Released w/o Limitations [facility]([place] WLQU55P TeamB) [facility](L Beekeeper) OUTPATIENT [id number] pre-op SURENDRA MELVIN C 09/19 Released w/o Limitations [facility](LSL Beekeeper) [facility](L Orthopedi cs) OUTPATIENT [id number] Joint pain, localiz ed in the right wrist; 0151-40 [id number] HARSHACRICKET ARH 10/01 Released with Work/Duty Limitations [facility] Orthope dics) [facility] ENT Clinic) TELE CONSULT [id number] Notes Entered by: Isidoro CHAN 09 Oct 2014 1126 ------- ------- ------- ------- -- Post-op Follow Up Phone Call INDERJIT CHAN 10/09 [facility] ENT Clinic) [facility] Emergency Room) OUTPATIENT [id number] Notes Entered by: DUNIA CROWDER 14 Oct 2014 1356 ------- ------- ------- ------- -- 19 yoM post op bleedin g/tonsi llectom ROSALINDA Ornelas V 10/14 Released w/o Limitations [facility] Emergen cy Room) [facility](ZZZAM WM15CJist B) OUTPATIENT [id number] well woman exam/pa p smear; 0151-70 [id number] YANN ANSARI 10/18 Released w/o Limitations [facility]Z VEAG33J TeamB) [facility](ZZZAM SF53HZfsy B) OUTPATIENT [id number] food poisoni ng/2 days YANN ANSARI 10/24 Released w/o Limitations [facility] AYWO53Q TeamB) [facility] ENT Clinic) OUTPATIENT [id number] pop tonsill ectomy 10Kfs11 CHARLENE Saini 10/26 Released w/o Limitations [facility] ENT Clinic) [facility](ZZZAM OP90FHqsp B) TELE CONSULT [id number] Notes Entered by: ZOILA PENNINGTON S 12 Nov 2014 1421 ------- ------- ------- ------- -- pcm barb n /a renewal of the orthope JESE Dockery 11/12 [facility] YZEZ83M TeamB) [facility] PL91DOlmy B) TELE CONSULT [id number] Notes Entered by: SAMIRA HERNANDEZ 13 Nov 2014 0000 ------- ------- ------- ------- -- Reactio n to spermic maria fernanda YANN ANSARI 11/12 [facility] PDBQ19J TeamB) [facility] PG86XWzrg B) OUTPATIENT [id number] allergy sx YANN ANSARI 11/16 Released w/o Limitations [facility] ZQMD38T TeamB) [facility](ZZZ VB23BBxbu B) OUTPATIENT [id number] per RN f/u on meds/al YANN Wade 11/16 Released w/o Limitations [facility] HMUY25H TeamB) [facility](LSL Beekeeper) OUTPATIENT [id number] SURENDRA MCGUIRE 11/22 Released w/o Limitations [facility](LSL Beekeeper) [facility](ZZZAM LE69QLbav B) TELE CONSULT [id number] Notes Entered by: SAMIRA HERNANDEZ 24 Nov 2014 1443 ------- ------- ------- ------- -- abnorma l Pap - ASCUS with + HPV SONNYANDREASJESE S 11/24 [facility] GHYI66X TeamB) [facility](ZZZAM TC92QYftb B) TELE CONSULT [id number] Notes Entered by: SONNYANDREASJESE S 04 Dec 2014 1106 ------- ------- ------- ------- -- RH: LAB TEST SONNYANDREASJESE S 12/04 [facility] UMED35B TeamB) [facility] Optometry ) OUTPATIENT [id number] BRITT Pickering 12/05 Released w/o Limitations [facility](LSL Optomet ry) [facility](LSL Hearing Conservat ion) OUTPATIENT [id number] ROZ LYONS 12/05 Released w/o Limitations [facility](LSL Hearing Conserv ation) [facility](L[facility] Physical Medicine) OUTPATIENT [id number] EMG FELTONE-Pos s CTS per BRITTON Coreas 12/06 Released w/o Limitations [facility](LSL Physica l Medicin e) [facility](LSL Orthopedi cs) OUTPATIENT [id number] R wrist pain ARLEY VALDES 12/11 Released with Work/Duty Limitations [facility](LSL Orthope dics) [facility](ZZZ KW34NOeey B) OUTPATIENT [id number] bilater al sharp ear pain x 7 days/ [id number] YANN ANSARI 12/17 Released w/o Limitations [facility] LOQE78L TeamB) [facility](LSL Beekeeper) OUTPATIENT [id number] F/U SURENDRA MELVIN 12/20 Released w/o Limitations [facility](LSL Beekeeper) [facility](ZZZAM ER80OTpwc B) OUTPATIENT [id number] vomitin g x 24 hours/0 [id number] YANN ANSARI Paras 12/24 Sick at Home/Quarter s [facility](ZZZ JMGI80M TeamB) [facility](LSL Beekeeper) TELE CONSULT [id number] Notes Entered by: ALLEN WEBBER 26 Dec 2014 1750 ------- ------- ------- ------- -- Network Results -Physic al Therapy - HILDA QUARLES 12/26 [facility](LSL Beekeeper) [facility](ZZZAM NE39FIntj B) OUTPATIENT [id number] Annual PHA 19y/o female YANN ANSARI Paras 01/03 Released w/o Limitations [facility] GAJF82S TeamB) [facility](LSL Orthopedi cs) OUTPATIENT [id number] f/u R ARLEY Marquez 01/07 Released with Work/Duty Limitations [facility](LSL Orthope dics) [facility](ZZZAM ZJ58EQvzy B) OUTPATIENT [id number] fitness for duty YANN ANSARI Paras 01/09 Released w/o Limitations [facility](Z ZGMH41W TeamB) [facility](ZZZAM NU23DBtvs B) TELE CONSULT [id number] Notes Entered by: NYDIA LATHAM 22 Jan 2015 0634 ------- ------- ------- ------- -- no acute appts/p cm barb n/right ear pain/fl uid in ear/ 3 days JESE DENNIS 01/22 [facility](Z LUZE62L TeamB) [facility](ZZZAM OU72LZhnq B) OUTPATIENT [id number] ear pain CARMEN APONTE SSAnnette 01/22 Released w/o Limitations [facility] NTWN83T TeamB) [facility] HS94DTvkv B) OUTPATIENT [id number] possibl e pink eye/abd ominal pain/ [id number] YANN ANSARI 01/23 Released w/o Limitations [facility] CHVL24I TeamB) [facility](LSL Emergency Room) OUTPATIENT [id number] Notes Entered by: DUNIA CROWDER 26 Jan 20151956 ------- ------- ------- ------- -- 19 KEO Ko abd 01/26 Released w/o Limitations [facility](LSL Emergen cy Room) [facility](LSL Orthopedi cs) OUTPATIENT [id number] DOS:10J UNE15/P re-op R ARLEY Felder 02/05 Released with Work/Duty Limitations [facility](LSL Orthope dics) [facility] IC88PXegb B) OUTPATIENT [id number] JESE Tovar 02/11 Released w/o Limitations [facility] UIOH02N TeamB) [facility](LSL Orthopedi cs) OUTPATIENT [id number] DOS:10J UNE15/P OP R ARLEY eFlder 02/18 Released with Work/Duty Limitations [facility](LSL Orthope dics) [facility](L[facility] Occupatio nal Therapy) OUTPATIENT [id number] post op (as per Dr. Valdes) LAINEY CANTU 02/18 Released w/o Limitations [facility](LSL Occupat ional Therapy ) [facility](LSL Occupatio nal Therapy) OUTPATIENT [id number] JENNIFER Lal 02/25 Released w/o Limitations [facility] ) [facility]) OUTPATIENT [id number] LAINEY CANTU 02/26 Released w/o Limitations [facility] ) [facility](ZZZAM [id number] B) TELE CONSULT [phone] Notes Entered by: JESE DENNIS 07 Mar 2015 1523 ------- ------- ------- ------- -- RH: ALLERGY MED DIMITRI MOREJON 03/07 [facility](ZZZ [id number] TeamB) [facility]) OUTPATIENT [id number] ROSS HARGROVE 03/08 Released w/o Limitations [facility] ) [facility]) OUTPATIENT [id number] ROSS HARGROVE 03/11 Released w/o Limitations [facility] ) [facility] F01A Team A) OUTPATIENT [id number] yeast infecti on untreat ed, totally infecte ANATOLIY Yuen 03/13 Released w/o Limitations [facility] F01A Team A) [facility]) OUTPATIENT [id number] ROSS HARGROVE 03/18 Released w/o Limitations [facility] ) [facility]) OUTPATIENT [id number] AMAIRANIJENNIFER 03/18 Released w/o Limitations [facility] ) [facility]) OUTPATIENT [id number] ROSS HARGROVE 03/22 Released w/o Limitations [facility] ) [facility](ZZZAM [id number] B) TELE CONSULT [id number] Notes Entered by: SONNYANDREASJESE S 25 Mar 2015 1552 ------- ------- ------- ------- -- RH: LAB RESULT JESE DENNIS Bogdan 03/25 [facility] [id number] TeamB) [facility] Occup[facility] nal Therapy) OUTPATIENT [id number] DELVIN ROSS Claudia 03/27 Released w/o Limitations [facility] Occupat ional Therapy ) [facility] [id number] B) TELE CONSULT [id number] Notes Entered by: SONNYANDREASJESE S 27 Mar 2015 1343 ------- ------- ------- ------- -- RH: MED REQUEST JESE DENNIS Bogdan 03/27 [facility] [id number] TeamB) [facility] [id number] B) OUTPATIENT [id number] medicat ion issue per rn OSWALDO DU 04/01 Released w/o Limitations [facility] [id number] TeamB) [facility] F01A Team A) TELE CONSULT [id number] Notes Entered by: Greg DU 03 Apr 2015 1733 ------- ------- ------- ------- -- results OSWALDO DU 04/03 [facility] F01A Team A) [facility] Orthopedi cs) OUTPATIENT [id number] f/u R DWG/ DOS:[id number] ARLEY VALDES 04/04 Released with Work/Duty Limitations [facility] Orthope dics) [facility] Beekeeper) OUTPATIENT [id number] F/U RESULTS FROM [facility] KIANNA CISNEROS 04/18 Released w/o Limitations [facility] Beekeeper) [facility] F01A Team A) TELE CONSULT [id number] Notes Entered by: JESE DENNIS 03 May 2015 0816 ------- ------- ------- ------- -- RH: MED FOR HSV-2 YANN ANSARI 05/03 [facility] F01A Team A) [facility] Wellness Center) OUTPATIENT [id number] REPEAT META TEST MAURI EWING 05/10 Released w/o Limitations [facility] s Theodore) [facility] Orthopedi cs) OUTPATIENT [id number] f/u R DW, DOS:[id number] ARLEY VALDES 05/27 Released with Work/Duty Limitations [facility] Orthope dics) [facility]) OUTPATIENT [id number] WEIGHT MANAGEM ENT F/U MAURI EWING 06/12 Released w/o Limitations [facility]) [facility] [id number] B) TELE CONSULT [id number] Notes Entered by: JESE DENNIS 17 Jun 2015 1107 ------- ------- ------- ------- -- RH: GIO FLORES 06/17 [facility](ZZ[facility] [id number] TeamB) [facility] Nutrition Care) OUTPATIENT [id number] ESSENCE FRAGA 06/17 Released w/o Limitations [facility] Nutriti on Care) [facility] Allergy) OUTPATIENT [id number] Notes Entered by: PRAVEEN CHARLES 18 Jun 2015 1327 ------- ------- ------- ------- -- vaccina bryceKANG Campbell 06/18 Released w/o Limitations [facility] Allergy ) [facility] Nutrition Care) OUTPATIENT [id number] [employer] MOVE CLASS #2 ESSENCE FRAGA 06/27 Released w/o Limitations [facility] Nutriti on Care) [facility] [id number] B) OUTPATIENT [id number] Vaginal lacerat ion concern s//Pain ful interco urse/In fection s/[id number] 75 GIO CORONA 07/12 Released w/o Limitations [facility] [id number] TeamB) [facility] Orthopedi cs) TELE CONSULT [id number] Notes Entered by: Maximus NEWMAN 15 Jul 2015 1539 ------- ------- ------- ------- -- P2 PROFILE RAMY MARLEN HARSHA 07/15 [facility] Orthope dics) [facility] Emergency Room) OUTPATIENT [id number] Notes Entered by: Marisa RICE 05 Aug 2015 1652 ------- ------- ------- ------- -- 20 y/o f Ab KEO Thorpe 08/05 Released w/o Limitations [facility] Emergen cy Room) [facility] [id number] B) OUTPATIENT [id number] Notes Entered by: JESE DENNIS 06 Aug 2015 1213 ------- ------- ------- ------- -- ED F/U- ABD PX JESE DENNIS 08/06 Released w/o Limitations [facility] [id number] TeamB) [facility] Emergency [facility]) OUTPATIENT [id number] Notes Entered by: Marisa RICE 14 Aug 2015 1655 ------- ------- ------- ------- -- 20 y/o f Migrain e CYNTHIA GOMEZ 08/14 [facility]ased w/o Limitations [facility]) [facility] [id number] [facility] OUTPATIENT [id number] Notes Entered by: JESE DENNIS 15 Aug 2015 0939 ------- ------- ------- ------- -- ED F/U- MIGRAIN E JESE DENNIS 08/15 Released w/o Limitations [facility] [id number] TeamB) [facility] Occup[facility]al Health) OUTPATIENT [id number] Notes Entered by: Maximus RILEY 15 Aug 2015 1036 ------- ------- ------- ------- -- Outproc essing/ PARAG /USA WILMAN SCHULER 08/15 Released w/o Limitations [facility] Occupat ional Health) [facility] [id number] B) OUTPATIENT [id number] vaginal bleedin g, abd pain/ [id number] GIO CORONA 08/29 Released w/o Limitations [facility] [id number] TeamB) [facility])([facility] ([facility] OUTPATIENT [id number] Notes Entered by: JANES GARSIA 30 Sep 2015 1042 ------- ------- ------- ------- -- ad\\MIKE Herrera 09/30 Released w/o Limitations [facility] ([facility]) OUTPATIENT [id number] SINUS INFECTI ON [id number] and EAR PRESSUR E ALONG WITH HEARING ISSUES JESSENIA FORD 10/01 Released with Work/Duty Limitations [facility] ([facility])(Hi rrior Transit ion Clinic) [facility] ([facility])([facility] M05D WFM Int) OUTPATIENT [id number] PAP/wel l woman exam/re ULYSSES Carbajal 11/06 Released w/o Limitations [facility] ([facility])(AM H M05D WFM Int) [facility] ([facility])([facility] M05D WFM Int) OUTPATIENT [id number] PHA NATHALIA CRYSTAL 12/08 Released w/o Limitations [facility] ([facility])(AM H M05D WFM Int) [facility] ([facility])(Fannie gency Room) OUTPATIENT [id number] MAEVE KRAMER 12/10 Released w/o Limitations [facility] ([facility])(Em ergency Room) [facility] ([facility])([facility]H M05D WFM Int) OUTPATIENT [id number] ER F/U FOR DIARRHE A NATHALIA CRYSTAL 12/11 Released w/o Limitations [facility] ([facility])(AM H M05D WFM Int) [facility] ([facility])([facility] M05D WFM Int) OUTPATIENT [id number] Per Ms. Crystal, F/U. NATHALIA CRYSTAL 12/31 Released w/o Limitations [facility] ([facility])(AM H M05D WFM Int) [facility] ([facility])([facility]H M05D WFM Int) OUTPATIENT [id number] radiolo gy results in, need referra l to neurolo ULYSSES Gunter 01/14 Released w/o Limitations [facility] ([facility])(AM H M05D WFM Int) [facility] ([facility])([facility] Hearing Program) OUTPATIENT [id number] Notes Entered by: BRITTNEY HANSON 16 Jan 2016 3687 ------- ------- ------- ------- -- Annual BRITTNEY HANSON 01/15 Released w/o Limitations [facility] ([facility])(Ar my Hearing Program ) [facility] ([facility])([facility] ology Clinic) OUTPATIENT [id number] pituita ry microad BRITT Hurtado 01/19 Released w/o Limitations [facility] ([facility])(Ne urology Clinic) [facility] ([facility])([facility] M05D WFM Int) OUTPATIENT [id number] TAMIKO RAMOS 01/19 Released w/o Limitations [facility] ([facility])(AM H M05D WFM Int) [facility] ([facility])([facility] ology Clinic) TELE CONSULT [id number] Notes Entered by: MADAI JOHNSON 22 Jan 2016 1551 ------- ------- ------- ------- -- ELENA Wang 01/21 Referred for Appointment [facility] ([facility])(Tn urology Clinic) [facility] ([facility])(Card iology) OUTPATIENT [id number] Syncope and KADEN Pereira 01/22 Released w/o Limitations [facility] ([facility])(Ca rdiolog y) [facility] ([facility])([facility] M05E WF Hon) OUTPATIENT [id number] STOMACH PAIN/NA NITIN GAMEZ 01/28 Released w/o Limitations [facility] ([facility])(AM H M05E WFM Hon) [facility] ([facility])(Card iology) OUTPATIENT [id number] Notes Entered by: Claudia SILVA 29 Jan 2016 1105 ------- ------- ------- ------- -- HOLTER- EX MONITOR INTERPR ETATION SEBLE SILVA 01/28 Released w/o Limitations [facility] ([facility])(Ca rdiolog y) [facility] o[facility]y [facility]) TELE CONSULT [id number] Notes Entered by: BENTLEY BYNUM 29 Jan 2016 1234 ------- ------- ------- ------- -- Pt is having a large amount of pain to the left of her belly button. She is unsu SCOTT ELIAS 01/28 Referred for Appointment [facility] ([facility])(Tn urology Clinic) [facility] ([facility])([facility] M05E WF Hon) TELE CONSULT [id number] Notes Entered by: MEGAN NEELY RA 29 Jan 2016 1513 ------- ------- ------- ------- -- Lab Results NITIN BOLAÑOS 01/28 [facility] ([facility])(AM H M05E WFM Hon) [facility] ([facility])(AMH M05D WFM Int) OUTPATIENT [id number] SANJEEV Roberts 02/02 Released w/o Limitations [facility] ([facility])(AM H M05D WFM Int) [facility] ([facility])(Fannie gency Room) OUTPATIENT [id number] FARIDEH SHUKLA 02/03 Released w/o Limitations [facility] ([facility])(Em ergency Room) [facility] ([facility])(Opto metry) OUTPATIENT [id number] 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 GERALDINE MULLINS 02/06 Released w/o Limitations [facility] ([facility])(Op tometry ) [facility] ([facility])(Fannie gency Room) OUTPATIENT [id number] ALEJANDRINA CANTRELL 02/08 Released w/o Limitations [facility] ([facility])(Em ergency Room) [facility] ([facility])(Card iology) OUTPATIENT [id number] Syncope and collaps e SANJEEV PENNINGTON 02/09 Released w/o Limitations [facility] ([facility])(Ca rdiolog y) [facility] ([facility])(AMH M05D WFM Int) OUTPATIENT [id number] ER Follow UP for hand injury NATHALIA CRYSTAL 02/10 Released w/o Limitations [facility] ([facility])(AM H M05D WFM Int) [facility] ([facility])(Inte rnal Medicine) OUTPATIENT [id number] 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 RADHA RUIZ 02/12 Released w/o Limitations [facility] ([facility])(In ternal Medicin e) [facility] ([facility])(Opto metry) OUTPATIENT [id number] F/U VF 24-2 SS VY ORTEGA 02/13 Released w/o Limitations [facility] ([facility])(Op tometry ) [facility] ([facility])(Fannie gency Room) OUTPATIENT [id number] WENDY BATISTA 02/18 Released w/o Limitations [facility] ([facility])(Em ergency Room) [facility] ([facility])([facility] M05D WFM Int) TELE CONSULT [id number] Notes Entered by: XIANG ROSAS 19 Feb 2016 0939 ------- ------- ------- ------- -- JAIMIE call back CHAPO HOFFMAN 02/18 [facility] ([facility])(AM H M05D WFM Int) [facility] ([facility])(Fannie gency Room) OUTPATIENT [id number] FARIDEH SHUKLA 02/19 Released w/o Limitations [facility] ([facility])(Em ergency Room) [facility] ([facility])(AMH M05E WFM Hon) OUTPATIENT [id number] rt leg NITIN BOLAÑOS 02/24 Released w/o Limitations [facility] ([facility])(AM H M05E WFM Hon) [facility] ([facility])([facility] M05D WF Int) TELE CONSULT [id number] TAMIKO NAVA 02/26 Referred for Appointment [facility] ([facility])(AM H M05D WFM Int) [facility] ([facility])(Phys Exam) OUTPATIENT [id number] CHRISTOPHER SILVASIMRAN Isidoro 03/05 Released with Work/Duty Limitations [facility] ([facility])(Ph ys Exam) [facility] ([facility])([facility] ([facility])) OUTPATIENT [id number] Notes Entered by: Keri BLANCA 05 Mar 2016 1018 ------- ------- ------- ------- -- LEIGHA Gaston 03/05 Released w/o Limitations [facility] ([facility])([facility] ([facility])) [facility] ([facility])(Obst etrics -[facility]) OUTPATIENT [id number] JOSEFINA Skinner 03/06 Released w/o Limitations [facility] ([facility])(Ob stetric s [facility]) [facility] ([facility])([facility] M05D WF Int) TELE CONSULT [id number] Notes Entered by: BHAVANA BATISTA 23 Mar 2016 1406 ------- ------- ------- ------- -- JE HERNANDEZ 03/23 Referred for Appointment [facility] ([facility])(AM H M05D WF Int) Procedures Combined list of: 1) Procedures from Department of Veterans Affairs facilities going back up to thelast 18 months, not all VA non-surgical procedures are included; 2) All procedures from the Department of Defense facilities. Procedure Procedure Type Code Date Perfomer Comments [facility] e IMMUNIZATION ADMINISTRATION BY INTRANASAL OR ORAL ROUTE; 1 VACCINE (SINGLE OR COMBINATION VACCINE/TOXOID) 2 DoD NONINVASIVE EAR OR PULSE OXIMETRY FOR OXYGEN SATURATION; SINGLE DETERMINATION 2 DoD TETANUS, DIPHTHERIA TOXOIDS AND ACELLULAR PERTUSSIS VACCINE (TDAP), WHEN ADMINISTERED TO INDIVIDUALS 7 YEARS OR OLDER, FOR INTRAMUSCULAR USE 2 [facility] AUDIOMETRIC TESTING OF GROUPS 2 [facility] SKIN TEST; TUBERCULOSIS, INTRADERMAL 2 [facility] SCREENING TEST OF VISUAL ACUITY, QUANTITATIVE, BILATERAL 2 [facility] ULTRASOUND, UTERUS, REAL TIME WITH IMAGE DOCUMENTATION,TRANSVAGI NAL 6 [facility] PURE TONE AUDIOMETRY (THRESHOLD); AIR ONLY 6 [facility] TELE ASSESS & MGT SRV PROV QUAL NONPHYS HLTH CARE PRO TO EST PAT,PARENT,GUARD NOT ORIG REL ASSESS & MGT SRV PROV W/IN PREV 7 DAYS NOR LEAD ASSESS & MGT SRV/PX W/IN NXT 24 HR/SOON APT;5-10 MIN MED DIS 6 [facility] INTRODUCTION OF NEEDLE OR INTRACATHETER, VEIN 6 [facility] PSYCHOTHERAPY, 60 MINUTES WITH PATIENT 6 [facility] VISUAL FIELD EXAM,UNILAT/BI,INTERP&R EP;EXT EXM(EG,GOLDMANN VIS FLD,AT LEAST 3 ISOP PLOT&STAT DET W/IN NIA 30DEG/QUANT,AUTO THRSH GEE,OCT G-1,32/42,HUMP VIS FLD ANAL FULL THRSH 30-2,24-2, OR 30/60-2) 6 [facility] ECHOCARDIOGRAPHY,TRANST HORACIC,REAL-TIME W IMAGE DOCUMENTATION (2D),INCLUDES M-MODE RECORDING,WHEN PERFORMED,COMPLETE,WITH SPECTRAL DOPPLER ECHOCARDIOGRAPHY,AND W COLOR FLOW DOPPLER ECHOCARDIOGRAPHY 6 [facility] OPHTHALMOLOGICAL SERVICES: MEDICAL EXAMINATION AND EVALUATION WITH INITIATION OF DIAGNOSTIC AND TREATMENT PROGRAM; COMPREHENSIVE, NEW PATIENT, 1 OR MORE VISITS 6 [facility] PSYCHIATRIC DIAGNOSTIC EVALUATION 6 [facility] EXT PAT & WHEN PERF,AUTO ACT ECG RHY HIMANSHU EVNT REC,SYMPT-RELAT MEM LOOP,REM DOWNLOAD CAPABIL UP TO 30 DAYS,24-HOUR ATTEN MON;INC TRANSMISSION,REVIEW & INTERPRET,A PHYS/OTH QUALIFIED HEALTH CARE PROFES 6 [facility] EXT PAT &,WHEN PERF,AUTO ACT ECG RHY DERIVED EVENT RECORD W SYMPT-RELAT MEMORY LOOP W REMOTE DOWNLOAD CAPABILITY UP TO 30 DAYS,24-HOUR ATTENDED MONITOR; RECORDING (INCL CONNECT, RECORD, & DISCONNECT) 6 [facility] 12-LEAD ECG PERFORMED (EM) 6 [facility] HEARING SERVICE, MISCELLANEOUS 6 [facility] SMEAR, PRIMARY SOURCE WITH INTERPRETATION; WET MOUNT FOR INFECTIOUS AGENTS (EG, SALINE, JENN INK, BRANNON PREPS) 6 [facility] PSYCHOTHERAPY, 45 MINUTES WITH PATIENT 5 [facility] CASE MANAGEMENT, EACH 15 MINUTES 5 [facility] INTRAVENOUS INFUSION, HYDRATION; EACH ADDITIONAL HOUR (LIST SEPARATELY IN ADDITION TO CODE FOR PRIMARY PROCEDURE) 5 [facility] CASE MANAGEMENT, EACH 15 MINUTES 5 DoD PSYCHOTHERAPY, 45 MINUTES WITH PATIENT 5 [facility] PSYCHIATRIC EVALUATION OF HOSPITAL RECORDS, OTHER PSYCHIATRIC REPORTS, PSYCHOMETRIC AND/OR PROJECTIVE TESTS, AND OTHER ACCUMULATED DATA FOR MEDICALDIAGNOSTIC PURPOSES 5 [facility] WET MARQUITA, INCLUDING PREPARATIONS OF VAGINAL, CERVICAL OR SKIN SPECIMENS 5 [facility] MEDICAL NUTRITION THERAPY; GROUP (2 OR MORE INDIVIDUAL(S)), EACH 30 MINUTES 5 [facility] ONLINE ASSESS &MANAG SERV PROVIDE,A QUAL NONPHYS HCP TO AN ESTABLISHED PAT/GUARDIAN,NOT ORIGINAT FRM RELAT ASSESS &MANAG SERV PROVIDE W/IN THE PREV 7 DAYS,USE THE AB Group/SIMILAR [employer] NETWORK 5 [facility] MEDICAL NUTRITION THERAPY; GROUP (2 OR MORE INDIVIDUAL(S)), EACH 30 MINUTES 5 [facility] OXYGEN UPTAKE, GAS ANALYSIS; REST, INDIRECT (SEPARATE PROCEDURE) 5 [facility] ONLINE ASSESS &MANAG SERV PROVIDE,A QUAL NONPHYS HCP TO AN ESTABLISHED PAT/GUARDIAN,NOT ORIGINAT FRM RELAT ASSESS &MANAG SERV PROVIDE W/IN THE PREV 7 DAYS,USE THE AB Group/SIMILAR [employer] NETWORK 5 [facility] POSTOPERATIVE FOLLOW-UP VISIT, NORMALLY INCLUDED IN THE SURGICAL PACKAGE, INDICATE THAT EVALUATION & MANAGEMENT SERVICE WAS PERFORMED DURING A POSTOPERATIVE PERIOD REASON RELATED ORIGINAL PROCEDURE 5 [facility] ONLINE ASSESS &MANAG SERV PROVIDE,A QUAL NONPHYS HCP TO AN ESTABLISHED PAT/GUARDIAN,NOT ORIGINAT FRM RELAT ASSESS &MANAG SERV PROVIDE W/IN THE PREV 7 DAYS,USE THE AB Group/SIMILAR [employer] NETWORK 5 [facility] APPLICATION OF A MODALITY TO 1 OR MORE AREAS; HOT OR COLD PACKS 5 [facility] PSYCHOTHERAPY, 45 MINUTES WITH PATIENT 5 [facility] ONLINE ASSESS &MANAG SERV PROVIDE,A QUAL NONPHYS HCP TO AN ESTABLISHED PAT/GUARDIAN,NOT ORIGINAT FRM RELAT ASSESS &MANAG SERV PROVIDE W/IN THE PREV 7 DAYS,USE THE AB Group/[employer] NETWORK 5 [facility] OCCUPATIONAL THERAPY RE-EVALUATION 5 [facility] APPLICATION OF A MODALITY TO 1 OR MORE AREAS; [facility] 5 [facility] APPLICATION OF A MODALITY TO 1 OR MORE AREAS; [facility] 5 [facility] APPLICATION OF A MODALITY TO 1 OR MORE AREAS; [facility] 5 [facility] APPLICATION OF A MODALITY TO 1 OR MORE AREAS; [facility] 5 [facility] PSYCHIATRIC EVALUATION OF HOSPITAL RECORDS, OTHER PSYCHIATRIC REPORTS, PSYCHOMETRIC AND/OR PROJECTIVE TESTS, AND OTHER ACCUMULATED DATA FOR MEDICALDIAGNOSTIC PURPOSES 5 [facility] THERAPEUTIC PROCEDURE, 1 OR MORE AREAS, EACH 15 MINUTES; THERAPEUTIC EXERCISES TO DEVELOP STRENGTH AND ENDURANCE, RANGE OF MOTION AND FLEXIBILITY 5 [facility] POSTOPERATIVE FOLLOW-UP VISIT, NORMALLY INCLUDED IN THE SURGICAL PACKAGE, INDICATE THAT EVALUATION & MANAGEMENT SERVICE WAS PERFORMED DURING A POSTOPERATIVE PERIOD REASON RELATED ORIGINAL PROCEDURE 5 [facility] UNLISTED SPECIAL SERVICE, PROCEDURE OR REPORT 5 [facility] TELE ASSESS & MGT SRV PROV QUAL NONPHYS HLTH CARE PRO TO EST PAT,PARENT,GUARD NOT ORIG REL ASSESS & MGT SRV PROV W/IN PREV 7 DAYS NOR LEAD ASSESS & MGT SRV/PX W/IN NXT 24 HR/SOON APT;5-10 MIN MED DIS 5 [facility] PSYCHOTHERAPY, 30 MINUTES WITH PATIENT WHEN PERFORMED WITH AN EVALUATION AND MANAGEMENT SERVICE (LIST SEPARATELY IN ADDITION TO THE CODE FOR PRIMARY PROCEDURE) 5 [facility] PSYCHIATRIC EVALUATION OF HOSPITAL RECORDS, OTHER PSYCHIATRIC REPORTS, PSYCHOMETRIC AND/OR PROJECTIVE TESTS, AND OTHER ACCUMULATED DATA FOR MEDICALDIAGNOSTIC PURPOSES 5 [facility] PSYCHOTHERAPY, 45 MINUTES WITH PATIENT WHEN PERFORMED WITH AN EVALUATION AND MANAGEMENT SERVICE (LIST SEPARATELY IN ADDITION TO THE CODE FOR PRIMARY PROCEDURE) 5 [facility] PSYCHOTHERAPY, 45 MINUTES WITH PATIENT 5 [facility] ARTHROCENTESIS, ASPIRATION AND/OR INJECTION, INTERMEDIATE JOINT OR BURSA (EG, TEMPOROMANDIBULAR, ACROMIOCLAVICULAR, WRIST, ELBOW OR ANKLE, OLECRANON BURSA); WITHOUT ULTRASOUND GUIDANCE 5 [facility] NEEDLE ELECTROMYOGRAPHY,NON-EX TREMITY (CRANIAL NERVE SUPPLIED OR AXIAL) MUSCLE(S) DONE W NERVE CONDUCTION,AMPLITUDE &LATENCY/VELOCITY STUDY (LIST SEPARATELY IN ADDITION TO CODE FOR PRIMARY PROCEDURE) 5 [facility] PURE TONE AUDIOMETRY (THRESHOLD), AUTOMATED; AIR ONLY 5 [facility] SCREENING TEST OF VISUAL ACUITY, QUANTITATIVE, BILATERAL 5 [facility] ONLINE ASSESS &MANAG SERV PROVIDE,A QUAL NONPHYS HCP TO AN ESTABLISHED PAT/GUARDIAN,NOT ORIGINAT FRM RELAT ASSESS &MANAG SERV PROVIDE W/IN THE PREV 7 DAYS,USE THE INTERNET/SIMILAR [employer] NETWORK 5 [facility] TELE ASSESS & MGT SRV PROV QUAL NONPHYS HLTH CARE PRO TO EST PAT,PARENT,GUARD NOT ORIG REL ASSESS & MGT SRV PROV W/IN PREV 7 DAYS NOR LEAD ASSESS & MGT SRV/PX W/IN NXT 24 HR/SOON APT;5-10 MIN MED DIS 5 [facility] PSYCHIATRIC DIAGNOSTIC EVALUATION WITH MEDICAL SERVICES 5 [facility] TELE ASSESS & MGT SRV PROV QUAL NONPHYS HLTH CARE PRO TO EST PAT,PARENT,GUARD NOT ORIG REL ASSESS & MGT SRV PROV W/IN PREV 7 DAYS NOR LEAD ASSESS & MGT SRV/PX W/IN NXT 24 HR/SOON APT;5-10 MIN MED DIS 5 [facility] PSYCHOTHERAPY, 45 MINUTES WITH PATIENT 5 [facility] POSTOPERATIVE FOLLOW-UP VISIT, NORMALLY INCLUDED IN THE SURGICAL PACKAGE, INDICATE THAT EVALUATION & MANAGEMENT SERVICE WAS PERFORMED DURING A POSTOPERATIVE PERIOD REASON RELATED ORIGINAL PROCEDURE 5 [facility] PSYCHOTHERAPY, 45 MINUTES WITH PATIENT 5 [facility] UNLISTED SPECIAL SERVICE, PROCEDURE OR REPORT 5 [facility] PSYCHIATRIC DIAGNOSTIC EVALUATION WITH MEDICAL SERVICES 5 [facility] OCCUPATIONAL THERAPY RE-EVALUATION 5 [facility] OCCUPATIONAL THERAPY RE-EVALUATION 5 [facility] PSYCHOTHERAPY, 45 MINUTES WITH PATIENT 4 [facility] OCCUPATIONAL THERAPY RE-EVALUATION 4 [facility] OCCUPATIONAL THERAPY RE-EVALUATION 4 [facility] PSYCHIATRIC EVALUATION OF HOSPITAL RECORDS, OTHER PSYCHIATRIC REPORTS, PSYCHOMETRIC AND/OR PROJECTIVE TESTS, AND OTHER ACCUMULATED DATA FOR MEDICALDIAGNOSTIC PURPOSES 4 [facility] ONLINE ASSESS &MANAG SERV PROVIDE,A QUAL NONPHYS HCP TO AN ESTABLISHED PAT/GUARDIAN,NOT ORIGINAT FRM RELAT ASSESS &MANAG SERV PROVIDE W/IN THE PREV 7 DAYS,USE THE [employer] NETWORK 4 [facility] PSYCHOTHERAPY, 45 MINUTES WITH PATIENT 4 [facility] PSYCHIATRIC EVALUATION OF HOSPITAL RECORDS, OTHER PSYCHIATRIC REPORTS, PSYCHOMETRIC AND/OR PROJECTIVE TESTS, AND OTHER ACCUMULATED DATA FOR MEDICALDIAGNOSTIC PURPOSES 4 [facility] THERAPEUTIC PROCEDURE, 1 OR MORE AREAS, EACH 15 MINUTES; THERAPEUTIC EXERCISES TO DEVELOP STRENGTH AND ENDURANCE, RANGE OF MOTION AND FLEXIBILITY 4 [facility] WRIST HAND ORTHOSIS, WRIST EXTENSION CONTROL COCK-UP, NON MOLDED, PREFABRICATED, [id number] 4 [facility] ONLINE ASSESS &MANAG SERV PROVIDE,A QUAL NONPHYS HCP TO AN ESTABLISHED PAT/GUARDIAN,NOT ORIGINAT FRM RELAT ASSESS &MANAG SERV PROVIDE W/IN THE PREV 7 DAYS,USE THE [employer] NETWORK 4 [facility] PSYCHIATRIC DIAGNOSTIC EVALUATION 4 [facility] ONLINE ASSESS &MANAG SERV PROVIDE,A QUAL NONPHYS HCP TO AN ESTABLISHED PAT/GUARDIAN,NOT ORIGINAT FRM RELAT ASSESS &MANAG SERV PROVIDE W/IN THE PREV 7 DAYS,USE THE [employer] NETWORK 4 [facility] TELE ASSESS & MGT SRV PROV QUAL NONPHYS HLTH CARE PRO TO EST PAT,PARENT,GUARD NOT ORIG REL ASSESS & MGT SRV PROV W/IN PREV 7 DAYS NOR LEAD ASSESS & MGT SRV/PX W/IN NXT 24 HR/SOON APT;5-10 MIN MED DIS 4 [facility] OXYGEN UPTAKE, GAS ANALYSIS; REST, INDIRECT (SEPARATE PROCEDURE) 4 [facility] ONLINE ASSESS &MANAG SERV PROVIDE,A QUAL NONPHYS HCP TO AN ESTABLISHED PAT/GUARDIAN,NOT ORIGINAT FRM RELAT ASSESS &MANAG SERV PROVIDE W/IN THE PREV 7 DAYS,USE THE [employer] 4 [facility] ONLINE ASSESS &MANAG SERV PROVIDE,A QUAL NONPHYS HCP TO AN ESTABLISHED PAT/GUARDIAN,NOT ORIGINAT FRM RELAT ASSESS &MANAG SERV PROVIDE W/IN THE PREV 7 DAYS,USE THE [employer] 4 [facility] THERAPEUTIC, PROPHYLACTIC, OR DIAGNOSTIC INJECTION (SPECIFY SUBSTANCE OR DRUG); SUBCUTANEOUS OR INTRAMUSCULAR 4 [facility] THERAPEUTIC, PROPHYLACTIC, OR DIAGNOSTIC INJECTION (SPECIFY SUBSTANCE OR DRUG); SUBCUTANEOUS OR INTRAMUSCULAR 4 [facility] BIOPSY OF SKIN, SUBCUTANEOUS TISSUE AND/OR MUCOUS MEMBRANE (INCLUDING SIMPLE CLOSURE),UNLESS OTHERWISE LISTED (SEPARATE PROCEDURE); EACH SEPARATE/ADD LESION (LIST SEP IN ADD TO CODE FOR PRIMARY PROC) 4 [facility] TELE ASSESS & MGT SRV PROV QUAL NONPHYS HLTH CARE PRO TO EST PAT,PARENT,GUARD NOT ORIG REL ASSESS & MGT SRV PROV W/IN PREV 7 DAYS NOR LEAD ASSESS & MGT SRV/PX W/IN NXT 24 HR/SOON APT;5-10 MIN MED DIS 4 [facility] CARE VISIT () 4 [facility] IMMUNIZATION ADMINISTRATION (INCLUDES PERCUTANEOUS, INTRADERMAL, SUBCUTANEOUS, OR INTRAMUSCULAR INJECTIONS); 1 VACCINE (SINGLE OR COMBINATION VACCINE/TOXOID) 4 [facility] CARE VISIT () 4 [facility] OTHER MONITORING 12/14 4 [facility] REPAIR OF OTHER CURRENT OBSTETRIC LACERATION 4 [facility] POSTOPERATIVE FOLLOW-UP VISIT, NORMALLY INCLUDED IN THE SURGICAL PACKAGE, INDICATE THAT EVALUATION & MANAGEMENT SERVICE WAS PERFORMED DURING A POSTOPERATIVE PERIOD REASON RELATED ORIGINAL PROCEDURE 4 [facility] MEDICAL NUTRITION THERAPY; INITIAL ASSESSMENT AND INTERVENTION, INDIVIDUAL, [id number] WITH THE PATIENT, EACH 15 MINUTES 4 [facility] POSTOPERATIVE FOLLOW-UP VISIT, NORMALLY INCLUDED IN THE SURGICAL PACKAGE, INDICATE THAT EVALUATION & MANAGEMENT SERVICE WAS PERFORMED DURING A POSTOPERATIVE PERIOD REASON RELATED ORIGINAL PROCEDURE 4 [facility] VAGINAL DELIVERY ONLY (WITH OR WITHOUT EPISIOTOMY AND/OR FORCEPS); 4 [facility] SUBSEQ CARE VISIT () [EXCLS:PATIENTS WHO ARE SEEN FOR A CONDITION UNREL TO / CARE (EG,AN UP RESPIR INFECT;PATIENTS SEEN FOR CONSULTATION ONLY,NOT FOR CONT CARE)] 4 [facility] HANDLING AND/OR CONVEYANCE OF SPECIMEN FOR TRANSFER FROM THE OFFICE TO A LABORATORY 4 [facility] TELE ASSESS & MGT SRV PROV QUAL NONPHYS HLTH CARE PRO TO EST PAT,PARENT,GUARD NOT ORIG REL ASSESS & MGT SRV PROV W/IN PREV 7 DAYS NOR LEAD ASSESS & MGT SRV/PX W/IN NXT 24H/SOON APT; 11-20 MIN MED DIS 4 [facility] SUBSEQ CARE VISIT () [EXCLS:PATIENTS WHO ARE SEEN FOR A CONDITION UNREL TO / CARE (EG,AN UP RESPIR INFECT;PATIENTS SEEN FOR CONSULTATION ONLY,NOT FOR CONT CARE)] 4 [facility] SUBSEQ CARE VISIT () [EXCLS:PATIENTS WHO ARE SEEN FOR A CONDITION UNREL TO / CARE (EG,AN UP RESPIR INFECT;PATIENTS SEEN FOR CONSULTATION ONLY,NOT FOR CONT CARE)] 4 [facility] DETERMINATION OF REFRACTIVE STATE 4 [facility] SUBSEQ CARE VISIT () [EXCLS:PATIENTS WHO ARE SEEN FOR A CONDITION UNREL TO / CARE (EG,AN UP RESPIR INFECT;PATIENTS SEEN FOR CONSULTATION ONLY,NOT FOR CONT CARE)] 4 [facility] PSYCHOTHERAPY, 45 MINUTES WITH PATIENT 4 [facility] SUBSEQ CARE VISIT () [EXCLS:PATIENTS WHO ARE SEEN FOR A CONDITION UNREL TO / CARE (EG,AN UP RESPIR INFECT;PATIENTS SEEN FOR CONSULTATION ONLY,NOT FOR CONT CARE)] 4 [facility] ORTHOTIC(S) MANAGEMENT AND TRAINING (INCLUDING ASSESSMENT AND FITTING WHEN NOT OTHERWISE REPORTED),UPPER EXTREMITY(IES),LOWER EXTREMITY(IES) AND/OR TRUNK,INITIAL ORTHOTIC(S) ENCOUNTER,EACH 15 MINUTES 3 [facility] PSYCHOTHERAPY, 45 MINUTES WITH PATIENT 3 [facility] PSYCHOTHERAPY, 45 MINUTES WITH PATIENT 3 [facility] SUBSEQ CARE VISIT () [EXCLS:PATIENTS WHO ARE SEEN FOR A CONDITION UNREL TO / CARE (EG,AN UP RESPIR INFECT;PATIENTS SEEN FOR CONSULTATION ONLY,NOT FOR CONT CARE)] 3 [facility] AUDIOMETRIC TESTING OF GROUPS 3 [facility] TELE ASSESS & MGT SRV PROV QUAL NONPHYS HLTH CARE PRO TO EST PAT,PARENT,GUARD NOT ORIG REL ASSESS & MGT SRV PROV W/IN PREV 7 DAYS NOR LEAD ASSESS & MGT SRV/PX W/IN NXT 24 HR/SOON APT;5-10 MIN MED DIS 3 [facility] PSYCHIATRIC DIAGNOSTIC EVALUATION 3 [facility] MEDICAL NUTRITION THERAPY; GROUP (2 OR MORE INDIVIDUAL(S)), EACH 30 MINUTES 3 [facility] INITIAL CARE VISIT (REPORT AT 1ST ENCOUN W HEALTH CARGO OPERATIONS AGENT PROVIDING OBSTETRIC CARE. REPORT ALSO DATE OF VISIT &,IN A SEPARATE FIELD,THE DATE OF THE LAST MENSTRUAL PERIOD) 3 [facility] MEDICAL NUTRITION THERAPY; GROUP (2 OR MORE INDIVIDUAL(S)), EACH 30 MINUTES 3 [facility] EDUCATIONAL SUPPLIES, SUCH BOOKS, TAPES, AND PAMPHLETS, FOR THE PATIENT'S EDUCATION AT COST TO PHYSICIAN OR OTHER QUALIFIED HEALTH CARGO OPERATIONS AGENT 3 [facility] EDUCATION &TRAINING, PATIENT SELF-MGT QUALIFIED, NONPHYSICIAN HEALTH CARGO OPERATIONS AGENT USING STANDARDIZED CURRICULUM, [id number] W THE PATIENT (COULD INCL CAREGIVER/FAMILY) EA 30 MIN; 5-8 PATIENTS 3 [facility] MEDICAL NUTRITION THERAPY; GROUP (2 OR MORE INDIVIDUAL(S)), EACH 30 MINUTES 3 [facility] MEDICAL NUTRITION THERAPY; GROUP (2 OR MORE INDIVIDUAL(S)), EACH 30 MINUTES 3 [facility] INTRAVENOUS INFUSION, HYDRATION; INITIAL, 31 MINUTES TO 1 HOUR 3 [facility] No data available for this section Ambulatory Pharmacy Social History Combined list of available smoking, tobacco, and other social history from Department of Defense and Veterans Affairs facilities. Social History Type Response Date Comment Sour e Tobacco smoking status NHIS VA-TOBACCO FORMER USER 05/23/2020 [facility] History of tobacco use VA-TOBACCO QUIT 1 TO < 5 YRS 05/23/2020 [facility] History of tobacco use VA-TOBACCO FORMER USER 06/29/2018 [facility] History of tobacco use TOBACCO SCREEN COMPLETED 06/24/2017 [facility] History of tobacco use V9 QUIT TOBACCO > 12 MO and <7 YRS AGO 02/25/2017 [facility] This section is an empty social history section. [facility] Sexual Orientation Ambula tory Pharmacy Gender identity Ambulator y Pharmacy Sex Representation Female (finding) Unknown Organization Assessment and Plan Combined list of future care activities from Department of Defense and Veterans Affairs facilities (e.g., assessment and plan notes, appointments, orders, and referrals). Additional future care activities may be listed in the Plan of Care section. Result Assessment and Plan Date Source Assessment and Plan No data available for this section 04/03/2025 Ambulatory Pharmacy Advance Directives List of completed, amended, or rescinded Advance Directives on record at Department of Veterans Affairs facilities. An actual copy of the Directive is not included. Date Advance Directive Provider Source 03/08/2017 ADVANCE DIRECTIVE DISCUSSION RENU JC [facility] Functional Status Combined list of recent functional and cognitive assessments recorded at Department of Defense and Veterans Affairs (DC).VA Functional Clarion Measurement (FIM) Scale: 1 = Total Assistance (Subject = 0% +), 2 = Maximal Assistance (Subject = 25% +), 3 = Moderate Assistance (Subject = 50% +), 4 = Minimal Assistance (Subject = 75% +), 5 = Supervision, 6 = Modified Clarion (Device), 7 = Complete Clarion (Timely, Safely). Assessment Date/Time Source Assessment Type Assessment Skill Assessment Score Assessment Details No data available for this section
--- OUTSIDE RECORDS SUMMARY | 2025-04-03 09:55 | XMS_ITS | Encounter Summary ---
Author Organization [facility] Address [address] [place] [address] Care Team Providers Care Court Collections Officer Name Role Phone Hayden Eduardo Primary Care Provider [phone] Encounter Details Date Type Department Care Team (Late st Contact Info) Description 02/01/2024 [employer] Message Enc [facility] Medical Group Family & Internal Medicine [facility] [address] [place] [address] [place] [address] [place] [address] Sleep study Social History Tobacco Use Types Packs/Day Years [...] Sex Assigned at Female 10/27/2024 1:42 PM SQL ARCHITECT Legal Sex Female 8:33 PM CDT Gender Identity Not on file Sexual Orientation Not on file documented as of this encounter Progress Notes * Sabrina Morales RN - 02/01/2024 8:36 AM CDT Please advise. Thanks! documented in this encounter Plan of Treatment Not on file documented as of this encounter Visit Diagnoses Not on filedocumented in this encounter Additional Health Concerns Infection Onset Date Last Indicated Resolved Time COVID-19 Rule Out 05/04/2024 05/04/2024 05/04/2024 12:18 PM CDT Assessment Noted Time PHQ-9 Depression Total Score: 10 024 9:16 AM SQL ARCHITECT documented as of this encounter Care Teams Court Collections Officer Relationship Specialty [place] [address] [place] [address] PCP - General Physician Microbiology Technologist Medical 09/16/23 documented as of this encounter
--- OUTSIDE RECORDS SUMMARY | 2025-04-03 09:55 | XMS_ITS | Clinical Summary ---
Author Organization [facility] Address [address] [place] [address] Care Team Providers Care Hosiery Bagger Name Role Phone Hayden Eduardo Primary Care Provider [phone] Allergies Active Allergy Reactions Criticality Noted Date Comments Gluten Meal GI Upset,Other (see comment) 02/25/2017 Other reaction(s): GI Upset Rimegepant Sulfate Other (see comment) 01/06/20 23 Numbness and tingling on the tongue. Triptans Other (see comment) 06/25/2022 Facial burning and pain Medications loratadine 10 MG tablet Take 1 tablet (10 mg total) by mouth daily. Active Cyanocobalamin (VITAMIN B 12) 500 MCG TabIndications:Vit hearn B 12 deficiency Take 2 tablets by mouth daily. 90 tablet 2 02/13/20 22 Active ondansetron (ZOFRAN-ODT) 4 MG disintegrating tabletIndications: Gastroesophageal reflux disease without esophagitis Take 1 tablet (4 mg total) by mouth every 8 (eight) hours as needed for Nausea. 20 tablet 01/06/20 23 Active pantoprazole EC (PROTONIX) 40 MG tabletIndications: Gastroesophageal reflux disease without esophagitis Take 1 tablet (40 mg total) by mouth daily as needed. 30 tablet 3 01/06/20 23 Active albuterol sulfate HFA 108 (90 Base) MCG/ACT inhalerIndications :Mild intermittent asthma without complication (HHS/HCC) Inhale 1 puff into the lungs every 6 (six) hours as needed for Wheezing. 18 g 4 01/06/20 23 Active Additional Information Patient not taking.Reported on 03/26/2025 Ascorbic Acid 250 MG Chew Tab Chew by mouth daily. Active B Complex Cap capsule Take 1 capsule by mouth daily. Active naproxen (NAPROSYN) 500 MG tablet 10/26/19 25 Active cyclobenzaprine (FLEXERIL) 5 MG tablet 10/27/19 25 Active predniSONE (DELTASONE) 10 mg tabletIndications: Allergic dermatitis After the initial 7 days, take 3 tabs daily for 3 days, then 2 tabs daily for 3 days, then 1 tab daily for 3 days. 18 tablet 03/26/20 25 Active predniSONE (DELTASONE) 10 mg tablet Take 4 tablets (40 mg total) by mouth daily for 7 days. 28 tablet 03/24/20 25 025 Active Problems Problem Noted Date Diagnosed Date Allergic rhinitis 03/26/2025 Urinary incontinence 10/27/2024 Tooth pain 10/27/2024 Sleep disturbances 10/27/2024 Rash 10/27/2024 Phase of life problem 10/27/2024 Perineal laceration involving vaginal muscles Overweight 10/27/2024 Nausea 10/27/2024 Metrorrhagia 10/27/2024 Lower back pain 10/27/2024 Excessive weight gain during ([facility]) 10/27/2024 Dysmenorrhea 10/27/2024 Depressive disorder 10/27/2024 Conjunctivitis 10/27/2024 Breast pain 10/27/2024 Arthralgia of wrist 10/27/2024 Anovulatory bleeding 10/27/2024 Allergies 10/27/2024 Adjustment disorder with anxiety 10/27/2024 Dyspareunia in female 10/27/2024 Deficiency of other specified B group vitamins 0 09/25/2022 Personal history of nicotine dependence 09/25/19 23 Vitamin D deficiency 05/20/2022 Mixed stress and urge urinary incontinence 05/20 Hypothyroidism 05/20/2022 Human papilloma virus infection 05/20/2022 Dermatitis 05/20/2022 Asthma ([facility]) 05/20/2022 Iron deficiency anemia 01/02/2022 Celiac disease ([facility]) 01/02/2022 Posttraumatic stress disorder 01/02/2022 YUMI (generalized anxiety disorder) 01/02/2022 Moderate episode of recurrent major depressive d isorder 01/02/2022 Overview (01/02/2022): PHQ-9 and YUMI-7 scores reviewed and appear [...] as well. History of colonic polyps 01/02/2022 Scalp psoriasis 05/29/2021 Overview (10/27/2024): [facility], - Valerie Claros MD PhD Fatigue 05/29/2021 Otalgia 05/21/2021 Dizziness 05/21/2021 COVID-19 05/07/2021 Seasonal allergies 04/01/2021 Atypical squamous cells of u ndetermined significance (ASCUS) on Papanicolaou smear of cervix 04/01/2021 Periumbilical abdominal pain 10/23/2020 Change in bowel habit 10/23/2020 Anal fissure, unspecified 07/30/2020 Hemorrhoid 07/18/2020 Flexor tendon laceration of left hand with open wound, left, subsequent encounter 07/04/2020 Laceration of flexor muscle, fascia and tendon of right little finger at wrist and hand level, initial encounter 2020 Injury of digital nerve of right little finger 1 History of delivery 01/12/2020 History of abnormal cervical Pap smear 0 Anemia 01/12/2020 Overview (10/27/2024): S/p iv iron ? Related celiac ? Menses related Diarrhea 02/07/2019 Cervical high risk human pap illomavirus (HPV) DNA test positive 05/24/2018 Abnormal vaginal bleeding 05/06/2018 Pituitary cyst (HHS/HCC) 04/30/2018 Overview (10/27/2024): Aug 17, 2019 Entered By: YARELIS QUINTERO Comment: see Endo notes - plan for repeat MRI in 2018 Entered By: YARELIS QUINTERO Comment: pituitary MRI, prolactin, TSH, free T4, BMP for screening. RTC if with symptomsAug 17, 2019 Entered By: YARELIS QUINTERO Comment: patient instructed by Endo to call them at that time I dont know if its really hypoglycemia Aug 17, 2019 Entered By: YARELIS QUINTERO Comment: see Endo notes - plan for repeat MRI in 2021Aug 17, 2019 Entered By: YARELIS QUINTERO Comment: pituitary MRI, prolactin, TSH, free T4, BMP for screening. RTC if with symptoms Aug 17, 2019 Entered By: YARELIS QUINTERO Comment: patient instructed by Endo to call them at that time Menorrhagia with regular cycle 03/29/2018 PCB (post coital bleeding) 02/02/2018 Nexplanon removal 01/27/2018 Abdominal pain, right lower quadrant 06/22/2017 Pituitary adenoma ([facility]) 06/05/2017 Overview (10/27/2024): Noted history of pituitary adenoma measuring about 2 to 5 mm. Getting prior records. Stable. 2014 Encounters Date Type Department Care Team Description 03/26/2025 8:00 AM CDT Office Visit [facility] Medical Group Family & Internal Medicine [address] [address] Andrew Truong PA Rash (Itchy, warm and red rash all over body) 03/26/2025 Travel 03/24/2025 11:01 AM CDT - 03/24/2025 11:39 AM CDT Emergency [facility] Emergency Room [address] [place] [id number] Brian Nolasco, Rash Discharge Disposition: Home or Self Care (Routine Discharge) 03/24/2025 Travel 01/04/2025 Orders Only [facility] Family & Internal Medicine [address] [address] Hayden Eduardo PA from Last 3 Months Immunizations Immunization Administration Dates Next Due Adenovirus Vaccine 04/08/2012 Fluzone 6 Months+ Quad (0.5 mL Prefilled Syringe) 06/17/2022 HPV4 (Gardasil) 12/29/2013,01/17/2013,11/30/2012 Hepatitis A/Hepatitis B(Twinrix) 013,10/28/2012,05/25/2012,04/08 Influenza (FluMist) 05/27/2015,05/22/2014,2011 Influenza (Generic) 08/30/2019, 7,06/24/2017,05/30,07/05/2016,06/06/2013 Influenza Adult (Generic) 07/15/2019,2017 MMR (MMRII) 02/19/2022 Meningococcal (Menactra) 04/08/2012 PFIZER COVID-19 (ORIGINAL FO RMULATION, PURPLE CAP) mRNA, LNP-S, PF, 30 MCG/0.3 ML DOSE 12/16/2020,11/29/2020 Polio IPV (Ipol) 04/08/2012 Tdap (Generic) 02/19/2022, 0,09/30/2016,04/08 Varicella (Varivax) 05/25/2012,04/08/2012 Family History Medical History Relation Comments Asthma Brother 1 Asthma bipolar Brother 1 Asthma Brother 2 COPD Brother 2 Mental Health Brother 2 Ptsd, bipolar di sorder Hyperlipidemia Father Hypertension Father Mental Health Maternal Uncle Suicide Heart Mother Scoliosis Mother Vision loss Mother Degenerative eye s Diabetes Paternal Aunt 1 Diabetes Paternal Aunt 2 Drug Abuse Paternal Uncle Diabetes Son 1 Asthma Son 2 Relation Status Comments Brother 1 Brother 2 Alive Father Maternal Uncle Mother Paternal Aunt 1 Paternal Aunt 2 Alive Paternal Uncle Alive Son 1 Son 2 Alive Social History Tobacco Use Types Packs/Day Years Used Date Smoking Tobacco: Former Cigarettes 1.5 3 0 01/05/2014 - 01/05/2017 Smokeless Tobacco: Never Tobacco Cessation:Counseling Given: Yes Comments:counseled by Dr Johnson Alcohol Use Standard Drinks/Week Comments Not Currently 0 (1 standard drink = 0.6 oz pur e alcohol) Havnt drank in years PHQ-2 Answer Date Recorded Patient Health Questionnaire-2 Score 2 09/24/2023 Comments No Sex and Gender Information Value Date Recorded Sex Assigned at Female 10/27/2024 1:42 PM 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 Legal Sex Female 8:33 PM CDT Gender Identity Not on file Sexual Orientation Not on file Last Filed Vital Signs Vital Sign Reading Time Taken Comments Blood Pressure 122/72 03/26/2025 7:49 AM CDT Pulse 65 03/26/2025 7:49 AM CDT Temperature 36.7 C (98.1 F) 03/26/2025 7:49 AM CDT Respiratory Rate 18 03/26/2025 7:49 AM CDT Oxygen Saturation 100% 03/26/2025 7:49 AM CDT Inhaled Oxygen Concentration - - Weight 75.8 kg (167 lb) 03/26/2025 7:49 AM CDT Height 162.6 cm (5' 4) 03/26/2025 7:49 AM CDT Body Mass Index 28.67 03/26/2025 7:49 AM CDT Plan of Treatment Health Maintenance Due Date Last Done Comments Pneumococcal Vaccine: Pediatrics (0 to 5 Years) and At-Risk Patients (6 to 49 Years) (1 of 2 - PCV) 2012 Cervical Cancer Screening Pap with HPV Testing (Age 30 to 64) Every 5 Years 2023 01/19/2020 Annual Physical 01/06/2024 01/05/2023, 01/02/2022 COVID-19 Vaccine ( season) 2024 12/16/2020, 11/29/2020 PHQ-2 (Physician [place]) 08/30/2024 09/24/2023 Cervical Cancer Screening Pap Smear (Age 30 to 64) Every 3 Years 02/11/2025 02/11/2022, 01/19/2020 Cervical Cancer Screening with HPV 02/11/2025 DTaP, Tdap and Td Vaccines (5 - Td or Tdap) 02/20/2032 02/19/2022, 04/16/2020, 09/30/2016, Additional history exists Meningococcal Vaccine Completed 04/08/2012 Hepatitis B Vaccines Completed 11/30/2012, 10/28/2012, 05/25/2012, Additional history exists HPV Vaccines Completed 12/29/2013, 0508/2012, 11/30/2012 Hepatitis C Completed 01/02/2022 Meningococcal B Vaccine Aged Out No l onger eligible based on patient's age to complete this topic RSV Immunizations Under 20 Months Aged Out No longer eligible based on patient's age to complete this topic Procedures Procedure Name Priority Date/Time Associated Diagnosis Comments CYTOPATH CERV/VAG THIN LAYER Routine 02/11/2022 8:14 AM CDT HEPATITIS C ANTIBODY Routine 01/02/2022 8:49 AM CDT Annual physical exam Encounter for medical examination to establish care General medical exam Encounter for hepatitis C screening test for low risk patient from Last 3 Months or Most Recently Relevant to Health Maintenance Results * Cytopath Cerv/Vag Thin Layer (02/11/2022 8:14 AM CDT) THIN PREP PAP [address] [address] Department of Pathology Pathology Report CERVICAL/VAGINAL PAP SMEAR REPORT Name: JO-ANN DIAL Age: 10 1995 (Age: 26) Location: [facility] Sex: F Collected Date: 02/11/2022 [facility] #: [id number] Date Received: 02/13/2022 Date Reported: 02/13/2022 Provider: RAGHU JOHNSON MD INTERPRETATION CERVICAL/ENDOCERVI SERENE: SATISFACTORY FOR EVALUATION. ENDOCERVICAL/TRANS FORMATION ZONE COMPONENT PRESENT. NEGATIVE FOR INTRAEPITHELIAL LESION OR MALIGNANCY. Electronically Signed Out By DELIO De León (ASCP) CLINICAL HISTORY Z12.4 SCREENING PAP TEST ThinPrep Pap Test Only Date of Last Menstrual Period: 12/2021 Menstrual Status: Regular SPECIMEN SUBMITTED CERVICAL/ENDOCERVI SERENE Specimen Received:1 Thin Prep Vial, Image Assisted Pap (SMD) Please note: The Pap smear is not a diagnostic test. It is a screening test. Negative results on combined screening (Pap test and HPV-DNA) have a high negative predictive value (99.1-100 percent) for cervical cancer. The pap test is not effective in detecting cervical adenocarcinoma. [facility] 02/11/2022 8:14 AM CDT 02/13/2022 8:14 AM CDT Comment:CERVICAL/ENDOCERVICA L Raghu Johnson MD PATHOLOGY/CYTOLOGY ORDERABLES Fi nal Result Performing Organization Address City/[facility]/ZIP Co de Phone Number [facility] [address] [place] [address], [place] [phone] * HEPATITIS C ANTIBODY (01/02/2022 8:49 AM CDT) HEPATITIS C AB NON-REACTI VE NON-REACT SHANIQUA 01/02/2022 7:49 PM CDT [facility] Comment: ANTIBODIES TO HCV NOT DETECTED. DOES NOT EXCLUDE THE POSSIBILITY OF EXPOSURE TO HCV. 01/02/2022 8:49 AM CDT Raghu Johnson MD LABORATORY Final Result Performing Organization Address [facility] Co de Phone Number [facility] [address] [place] [address], [place] [phone] from Last 3 Months or Most Recently Relevant to Health Maintenance Insurance Care Teams Hosiery Bagger Relationship Specialty [place] [address] [place] [address] PCP - General Physician Table Tender Medical 09/16/23
--- OUTSIDE RECORDS SUMMARY | 2025-04-03 09:55 | XMS_ITS | Encounter Summary ---
Author Organization [facility] Address [facility] [place] [address] Care Team Providers Care Corporate Wellness Coordinator Name Role Phone Hayden Eduardo Primary Care Provider Encounter Details Date Type Department Care Team (Late st Contact Info) Description 05/09/2024 [employer] Message Enc [facility] Medical Group Family & Internal Medicine [facility] [address] [place] [address] [place] [address] [place] [address] Gastroenterology Social History Tobacco Use Types Packs/Day Years [...] Sex Assigned at Female 10/27/2024 1:42 PM 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 Legal Sex Female 8:33 PM CDT Gender Identity Not on file Sexual Orientation Not on file documented as of this encounter Plan of Treatment Not on file documented as of this encounter Visit Diagnoses Not on filedocumented in this encounter Additional Health Concerns Assessment Noted Time PHQ-9 Depression Total Score: 10 024 9:16 AM SAFE AND 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 documented as of this encounter Care Teams Corporate Wellness Coordinator Relationship Specialty [place] [address] [place] [address] PCP - General Physician Recycle Driver Medical 09/16/23 documented as of this encounter
--- OUTSIDE RECORDS SUMMARY | 2025-04-03 09:55 | XMS_ITS | Encounter Summary ---
Author Organization [facility] Address [facility] [place] [address] Care Team Providers Care Twister Hand Name Role Phone Hayden Eduardo Primary Care Provider [phone] Encounter Details Date Type Department Care Team (Late st Contact Info) Description 02/22/2024 Reactivity Message Enc [facility] Medical Group Family & Internal Medicine [facility] [address] [place] [address] [place] [address] [place] [address] probably need a new medication Social History Tobacco Use Types Packs/Day Years [...] Sex Assigned at Female 10/27/2024 1:42 PM RISK CONSULTANT Legal Sex Female 8:33 PM CDT Gender [...] Depression Total Score: 10 024 9:16 AM RISK CONSULTANT documented as of this encounter Care Teams Twister Hand Relationship Specialty [place] [address] [place] [address] PCP - General Physician Polysomnography Tech Medical 09/16/23 documented as of this encounter
--- OUTSIDE RECORDS SUMMARY | 2025-04-03 09:55 | XMS_ITS ---
Author Name Interface, [id number] Address [address] [facility] [address] [place] [address] [facility] Address [address] [place] [address] Allergies and Adverse Reactions Plan Reason for Visit Encounters Immunizations Diagnostic Results Medications Problems Vital Signs Notes Section
--- OUTSIDE RECORDS SUMMARY | 2025-04-03 09:55 | XMS_ITS | CCD ---
Author Name Interface, [id number] lity Address [address] [place] [address] Organization [facility] Address [address] [place] [address] Care Team Providers Care Chartered Accountant Name Role Phone Hayden Dumont MD Unavailable Allergies and Adverse Reactions Medication/Group Name Reaction Severity Date No known allergies Reason for Visit CBC,FE PNLOV 12M LAB RVW (TRP) Functional Status Date Name Score 11/28/2018 Karnofsky performance status 100 Medications Date Name Route Dose Frequency Instructions Start Date End Date Status Ondansetron Oral 1.0 tablet PRN active Levothyroxine Oral orally 1.0 capsule daily active 019 Levocetirizine Oral PO 1.0 TABLET(S) daily 019 active 019 Cyanocobalamin Oral PO 1.0 TABLET(S) BID 019 active 019 Miscellaneous Drug 1 PO 1.0 CAPSULE(S ) as directed Rebis Nigrum Hair/Nails vitamin Le Feren Fe 019 active 019 Ferrous Gluconate Oral PO 1.0 TABLET(S) BID 019 active 019 Multivitamins Oral Tablet PO 1.0 TABLET(S) daily 019 active Problems Diagnosis Status Date of Diagnosis Resolution Date Excessive and frequent menst ruation with regular cycle Inactive Personal history of nicotine dependence Inactive custodial (current) use of h ormonal contraceptives Inactive Body mass index (BMI) 31.0-31.9, adult Inactive Lower abdominal pain, unspecified Inactive Other fatigue Inactive Constipation, unspecified Inactive Deficiency of other specifie d B group vitamins Inactive Iron deficiency Inactive Iron deficiency anemia (disorder) Active Social History Date Name Value Sex Female
--- OUTSIDE RECORDS SUMMARY | 2025-04-03 09:55 | XMS_ITS | CCD ---
Author Name Interface, [id number] lity Address [address] [place] [address] Organization [facility] Address [address] [place] [address] Care Team Providers Care Pelts Skinner Name Role Phone Hayden Dumont MD Unavailable [...] Tablet PO 1.0 TABLET(S) daily 019 active 019 Ferrous Gluconate Oral PO 1.0 TABLET(S) BID 019 active 019 Miscellaneous Drug 1 PO 1.0 CAPSULE(S ) as directed Rebis Nigrum Hair/Nails vitamin Le Feren Fe 019 active Problems Diagnosis Status Date of Diagnosis Resolution Date Excessive and frequent menst ruation with regular cycle Inactive Personal history of nicotine dependence Inactive intermediate (current) use of h ormonal contraceptives Inactive Body mass index (BMI) 31.0-31.9, adult Inactive Lower abdominal pain, unspecified Inactive Other fatigue Inactive Constipation, unspecified Inactive Deficiency of other specifie d B group vitamins Inactive Iron deficiency Inactive Iron deficiency anemia (disorder) Active Social History Date Name Value Sex Female
[2025-04-03 19:27] LABS: Hematocrit 47.1 % (37.0-47.0); Hemoglobin 15.3 g/dL (12.0-15.0); Immature Granulocyte Percent A 0.7 % (0-0.5); Lymphocytes Absolute Auto 1.04 K/mm3 (0.9-3.2); Mean Corpuscular HGB Conc 32.5 g/dl (32-36); Mean Corpuscular Hemoglobin 31.5 pg (26-34); Mean Corpuscular Volume 96.9 fl (80-100); Nucleated Red Blood Cells Absolute Auto 0.000 K/mm3 (0.0-0.012); Nucleated Red Blood Cells Perc 0.0 % (0.0-0.2); Platelet Count Result 312 k/mm3 (150-375); Red Blood Count 4.86 M/mm3 (4.2-5.4); White Blood Count 11.6 K/mm3 (4.5-10.0)
[2025-04-03 19:31] LABS: Free T3 3.15 pg/mL (2.32-6.09); Free T4 Free Thyroxine 1.10 ng/dL (0.78-2.19)
[2025-04-03 19:42] LABS: Thyroid Stimulating Hormone 0.650 uIU/mL (0.465-4.680)
[2025-04-03 19:55] LABS: Ferritin 14.40 ng/mL (6.24-137)
== END 2025-04-03 09:34 | disposition home or self-care (01) ==
LOC: ANHGOSHLAB 09:34
PROVIDERS: PCP Internal Medicine; Visit Provider Internal Medicine
DX: R53.83 Other fatigue (principal)
CPT/HCPCS: 36415; 82728; 84439; 84443; 84481; 85025

== ENCOUNTER 2025-06-13 12:37 | Outpatient (CLI) | payer OTHER, SELFPAY ==
--- OUTSIDE RECORDS SUMMARY | 2024-09-07 04:15 | XMS_ITS ---
Author Organization [employer] [facility] [place] ([address]) Address [address] [place] [address] Care Team Providers Care Comptroller Name Role Phone Apollo Nieto Unavailable [phone] Raghu Johnson Unavailable Unavailable Milan Pillai Unavailable [phone] REASON FOR VISIT InBody Follow-up Encounters Encounter Location Date Provider Diagnosis [facility] [place] ([address]) [address] [place] [phone] 09/07/2024 Milan Pillai Plan Of Treatment No Information Progress Notes * Oskar DIALB: 3 (29 yo F)Acc No.[id number]:09/07/2024 InBody Follow-up Patient: Jo-Ann LALA Provider: Jennifer Pillai MD :1995 A ge:29 Y S ex:Female Date:09/07/2024 Address:[facility] [address], [id number] Subjective: * Chief Complaints: * 1 . InBody Follow-up. * Medical History: Objective: * Vitals: Assessment: Plan: * Treatment: * Billing Information: * Visit Code: * Procedure Codes: * Electronic signature of John Pillai MD, FAAAAI on 06/13/2025 at 02:19 PM CDT Sign off status: Pending * Provider: Jennifer Pillai MD Date: 0 09/07/2024 Generated for Guevara vega/Nico/Vishnu on: 1 02:19 PM CDT
--- OUTSIDE RECORDS SUMMARY | 2025-06-13 14:20 | XMS_ITS ---
Author Name Interface, [id number] lity Address [address] [place] [address] Organization [facility] Address [address] [place] [address] Allergies and Adverse Reactions Medication/Group Name Reaction Severity Date No known allergies Plan Date Type Value 07/30/2021 APPOINTMENT CBC,FE PNLOV 1 2M LAB RVW (TRP) 04/01/2021 APPOINTMENT Chemo C3D8 Ferum oxytol (Feraheme) D1,8 Q14D (Intravenous Iron) 03/25/2021 APPOINTMENT OV NA LAB RVW,T1 -FERAHEME 03/25/2021 APPOINTMENT OV NA LAB RVW,T1 -FERAHEME 03/25/2021 APPOINTMENT Chemo C3D1 Ferum oxytol (Feraheme) D1,8 Q14D (Intravenous Iron) 09/25/2021 LAB_ORDER CBC w/ auto diff 09/25/2021 LAB_ORDER Iron profile 03/25/2022 LAB_ORDER CBC w/ auto diff 03/25/2022 LAB_ORDER Iron profile Reason for Visit CBC,FE PNLOV 12M LAB RVW (TRP) Encounters Date Name 03/25/2021 Iron deficiency anem ia (disorder) Medications Date Name Route Dose Frequency Instructions Start Date End Date Status Fill Status Indication 05/29 Ondanse jessica Oral 1.0 tablet PRN active 08/09 Levothy roxine Oral orally 1.0 capsul e daily active 03/19 hydroco rtisone 100 MG Injecti on intrave nous 100.0 mg Use as Directed Re-initiate treatment only upon physician approval. 2020 active Iron deficiency anemia (disorder) 03/19 diphenh ydramin e hydroch loride 50 MG/ML Injecta ble Solutio n intrave nous 50.0 mg Use as Directed Re-initiate treatment only upon physician approval. 2020 active Iron deficiency anemia (disorder) 03/19 1 ML epineph rine 1 MG/ML Injecti on intramu scularl y 0.3 mg Re-initiate treatment only upon physician approval. 2020 active Iron deficiency anemia (disorder) 03/19 17 ML ferumox ytol 30 MG/ML Injecti on intrave nous 510.0 mg As Directed Dilute in 50-200 mL NS or D5W. Observe for signs and symptoms of hypersensitivi ty reactions for at least 30 minutes following the administration . 2020 active Iron deficiency anemia (disorder) 03/19 methylp redniso lone 125 MG Injecti on intrave nous 125.0 mg Use as Directed Re-initiate treatment only upon physician approval. 2020 active Iron deficiency anemia (disorder) 03/19 1 ML epineph rine 1 MG/ML Injecti on intramu scularl y 0.3 mg Re-initiate treatment only upon physician approval. 2020 active Iron deficiency anemia (disorder) 03/19 methylp redniso lone 125 MG Injecti on intrave nous 125.0 mg Use as Directed Re-initiate treatment only upon physician approval. 2020 active Iron deficiency anemia (disorder) 03/19 hydroco rtisone 100 MG Injecti on intrave nous 100.0 mg Use as Directed Re-initiate treatment only upon physician approval. 2020 active Iron deficiency anemia (disorder) 03/19 diphenh ydramin e hydroch loride 50 MG/ML Injecta ble Solutio n intrave nous 50.0 mg Use as Directed Re-initiate treatment only upon physician approval. 2020 active Iron deficiency anemia (disorder) 06/08 diphenh ydramin e hydroch loride 50 MG/ML Injecta ble Solutio n intrave nous 50.0 mg Use as Directed Re-initiate treatment only upon physician approval. 2019 active Iron deficiency anemia (disorder) 06/08 hydroco rtisone 100 MG Injecti on intrave nous 100.0 mg Use as Directed Re-initiate treatment only upon physician approval. 2019 active Iron deficiency anemia (disorder) 06/08 1 ML epineph rine 1 MG/ML Injecti on intramu scularl y 0.3 mg Re-initiate treatment only upon physician approval. 2019 active Iron deficiency anemia (disorder) 06/08 methylp redniso lone 125 MG Injecti on intrave nous 125.0 mg Use as Directed Re-initiate treatment only upon physician approval. 2019 active Iron deficiency anemia (disorder) 06/08 methylp redniso lone 125 MG Injecti on intrave nous 125.0 mg Use as Directed Re-initiate treatment only upon physician approval. 2018 active Iron deficiency anemia (disorder) 06/08 hydroco rtisone 100 MG Injecti on intrave nous 100.0 mg Use as Directed Re-initiate treatment only upon physician approval. 2018 active Iron deficiency anemia (disorder) 06/08 diphenh ydramin e hydroch loride 50 MG/ML Injecta ble Solutio n intrave nous 50.0 mg Use as Directed Re-initiate treatment only upon physician approval. 2018 active Iron deficiency anemia (disorder) 06/08 1 ML epineph rine 1 MG/ML Injecti on intramu scularl y 0.3 mg Re-initiate treatment only upon physician approval. 2018 active Iron deficiency anemia (disorder) 02/04 methylp redniso lone 125 MG Injecti on intrave nous 125.0 mg Use as Directed Re-initiate treatment only upon physician approval. 2018 active Iron deficiency anemia (disorder) 02/04 diphenh ydramin e hydroch loride 50 MG/ML Injecta ble Solutio n intrave nous 50.0 mg Use as Directed Re-initiate treatment only upon physician approval. 2018 active Iron deficiency anemia (disorder) 02/04 1 ML epineph rine 1 MG/ML Injecti on intramu scularl y 0.3 mg Re-initiate treatment only upon physician approval. 2018 active Iron deficiency anemia (disorder) 02/04 hydroco rtisone 100 MG Injecti on intrave nous 100.0 mg Use as Directed Re-initiate treatment only upon physician approval. 2018 active Iron deficiency anemia (disorder) 02/04 hydroco rtisone 100 MG Injecti on intrave nous 100.0 mg Use as Directed Re-initiate treatment only upon physician approval. 2018 active Iron deficiency anemia (disorder) 02/04 diphenh ydramin e hydroch loride 50 MG/ML Injecta ble Solutio n intrave nous 50.0 mg Use as Directed Re-initiate treatment only upon physician approval. 2018 active Iron deficiency anemia (disorder) 02/04 1 ML epineph rine 1 MG/ML Injecti on intramu scularl y 0.3 mg Re-initiate treatment only upon physician approval. 2018 active Iron deficiency anemia (disorder) 02/04 methylp redniso lone 125 MG Injecti on intrave nous 125.0 mg Use as Directed Re-initiate treatment only upon physician approval. 2018 active Iron deficiency anemia (disorder) 02/04 Levocet irizine Oral PO 1.0 TABLET (S) daily 2018 active 02/04 Cyanoco balamin Oral PO 1.0 TABLET (S) BID 2018 active 02/04 Multivi tamins Oral Tablet PO 1.0 TABLET (S) daily 2018 active 02/04 Miscell aneous Drug 1 PO 1.0 CAPSUL E(S) as directed Rebis Nigrum Hair/Nails vitamin Le Feren Fe 2018 active 02/04 Ferrous Glucona te Oral PO 1.0 TABLET (S) BID 2018 active Problems Diagnosis Status Date of [...] Nurse Note Print Location: Unknown Date/Time Printed: 06/13/2025 12:20 ([facility]) Patient: MARAH DIAL Sex: Female [...] forearm Signed By Hannah Weems RN on 16:27 IV De-Access : IV Access Method-Peripheral - New Start, IV Access Type-Iv Cath, Line Flushed- 10ml NS, Catheter-Dc'd, Site Care-Site Dressing Applied,IV Infusion Completed,Blood Return Noted During Administration,Therapy Completed Without Adverse Event, Site Assess-Line Intact,No Redness,No Swelling,No Tenderness,No Bruising, Signed By Hannah Weems RN on 16: Discharge Note : Comments-Therapy completed without adverse [...] mg Amount in mL: 17 Pharmacy dispense: [facility]: [id number] Dispense/Waste: 510/0 mg Given Dose/Discard: 510/0 mg Admin Details: IV Administration: Piggyback Start Time: 14:06, Entered By: Hannah Weems RN, Stop Time: 14:37, Entered By: Hannah Weems RN Admix Fluid: 0.9 % sodium chloride, Admix Fluid Volume: 100mL, Total Volume: 127mL
--- OUTSIDE RECORDS SUMMARY | 2025-06-13 14:20 | XMS_ITS | CCD ---
Author Name Interface, [id number] lity Address [address] [place] [address] Organization [facility] Address [address] [facility] [place] [address] Care Team Providers Care Business Services Representative Name Role Phone Hayden Dumont MD Unavailable Allergies and Adverse Reactions Medication/Group Name Reaction Severity Date No known allergies Reason for Visit CBC,FE PNLOV 12M LAB RVW (TRP) Functional Status Date Name/Question Score/Answer 11/28/2018 Karnofsky performance status 100 Medications Date Name Route Dose Frequency Instructions Start Date End Date Status Fill Status Indication 05/29 Ondanse jessica Oral 1.0 tablet PRN active 08/09 Levothy roxine Oral orally 1.0 capsule daily active 02/04 Multivi tamins Oral Tablet PO 1.0 TABLET( S) daily 2018 active 02/04 Levocet irizine Oral PO 1.0 TABLET( S) daily 2018 active 02/04 Ferrous Glucona te Oral PO 1.0 TABLET( S) BID 2018 active 02/04 Miscell aneous Drug 1 PO 1.0 CAPSULE (S) as directed Rebis Nigrum Hair/Nails vitamin Le Feren Fe 2018 active 02/04 Cyanoco balamin Oral PO 1.0 TABLET( S) BID 2018 active Problems Diagnosis Status Date of Diagnosis Resolution Date Excessive and frequent menst ruation with regular cycle Inactive Personal history of nicotine dependence Inactive supervisor intermediates (current) use of h ormonal contraceptives Inactive Body mass index (BMI) 31.0-31.9, adult Inactive Lower abdominal pain, unspecified Inactive Other fatigue Inactive Constipation, unspecified Inactive Deficiency of other specifie d B group vitamins Inactive Iron deficiency Inactive Iron deficiency anemia (disorder) Active Social History Date Name Value 11/24/2018 Sex Female
--- OUTSIDE RECORDS SUMMARY | 2025-06-13 14:20 | XMS_ITS | Clinical Summary ---
Author Organization [facility] Address [address], [facility] [address] [place] [address] Phone Care Team Providers Care Supervisor Counseling And Guidance Name Role Phone Raghu Johnson MD Primary Care Provider [phone] Markell Ortega MD Unavailable Allergies Active Allergy Reactions Criticality Noted Date [...] Lnp-s, Pf, 3 0 Mcg/0.3 Ml Dose ([employer]) 12/16/2020,11/29/2020 Hepatitis A And Hepatitis B Vaccine [...] of 2 - PCV) 2012 HPV/Cotest 2023 Cervical Cancer Screening (CCS) 02/11/2025 Pap Smear 02/11/2025 02/11/2022 Influenza Immunization (#1) 2025 01/0 08/2019, 07/15/2019, 2017, Additional history exists SARS-COV-2 Immunization (3 - season) 2025 12/16/2020, 11/29/2020 Respiratory Syncytial Virus (RSV) Immunization (Adult) (1 - 1-dose 75+ series) 2068 Meningococcal Immunization (ACWY) Completed 04/08/2012 Hepatitis B Immunization Completed 013, 10/28/2012, 05/25/2012, Additional history exists Human Papillomavirus (HPV) Immunization Completed 12/29/2013, 01/17/2013, 11/30/2012 DTaP/Tdap/Td Immunization Discontinued 2021, 09/30/2016, 04/08/2012 Rotavirus Immunization Aged Out No lo nger eligible based on patient's age to complete this topic Insurance [facility] Care Teams Supervisor Counseling And Guidance Relationship Specialty Start Date End Date Raghu Johnson MD [address] [facility] [address] [place] [address] PCP - General Internal Medicine 01/09/22 Markell Ortega MD [address] [place] [id number] Consulting Physician Oncology 01/09/22
--- OUTSIDE RECORDS SUMMARY | 2025-06-13 14:20 | XMS_ITS ---
Author Name Interface, [id number] lity Address [address] [place] [address] Organization [facility] Address [address] [facility] [place] [address] Allergies and Adverse Reactions Medication/Group Name Reaction [...] FU 05/29/2019 APPOINTMENT OV 6M FU 12/01/2019 LAB_ORDER CBC w/ auto diff 12/01/2019 LAB_ORDER CMP 12/01/2019 LAB_ORDER Iron profile 12/01/2019 LAB_ORDER Vitamin B12 pane l 08/09/2020 LAB_ORDER Iron profile 08/09/2020 LAB_ORDER CBC w/ auto diff 10/03/2020 LAB_ORDER Iron profile 10/03/2020 LAB_ORDER CBC w/ auto diff 02/07/2021 LAB_ORDER Iron profile 02/07/2021 LAB_ORDER CBC w/ auto diff 09/25/2021 LAB_ORDER CBC w/ auto diff 09/25/2021 [...] Lab Address 07/19 Lab Repor t See wood pole treater d 10/03 Lab Repor t See wood pole treater d 10/07 CT scan resul t See wood pole treater d 02/25 CBC w/ auto diff WBC 10^3/u l 4.0 11.0 5.0 FINAL [facility] ([facility], [address] [place] [id number] 0 02/25 CBC w/ auto diff RBC 10^6/u l 3.8 5.2 4.54 FINAL [facility] ([facility], [address] [place] [id number] 0 02/25 CBC w/ auto diff HGB g/dl 11.5 16.0 14.5 FINAL [facility] ([facility], [address] [place] [id number] 0 02/25 CBC w/ auto diff HCT % 35.0 46.0 42.9 FINAL [facility] ([facility], [address] [place] [id number] 0 02/25 CBC w/ auto diff MCV FL 80.0 100.0 94.5 FINAL Hayden Dumont [facility] ([facility], [address] [place] [address] Ave [address] [place] [id number] 0 02/25 CBC w/ auto diff MCH pg 26.0 34.0 31.9 FINAL Hayden Dumont [facility] ([facility], [address] [place] [address] Ave [address] [place] [id number] 0 02/25 CBC w/ auto diff MCHC g/dL 32.0 36.0 33.8 FINAL Hayden Dumont [facility] ([facility], [address] [place] [address] Ave [address] [place] [id number] 0 02/25 CBC w/ auto diff RDW % 11.5 15.0 12.4 FINAL Hayden Dumont [facility] ([facility], [address] [place], [place] [address]e [address] [place] [id number] 0 02/25 CBC w/ auto diff PLT 10^3/u l 140.0 440.0 264 FINAL Hayden Dumont [facility] ([facility], [address] [place] [address] Ave [address] [place] [id number] 0 02/25 CBC w/ auto diff MPV fL 6.5 12.4 11.3 FINAL Hayden Dumont [facility] ([facility], [address] [place] [address] Ave [address] [place] [id number] 0 02/25 CBC w/ auto diff Poli % % 37.0 80.0 48.0 FINAL Hayden Dumont [facility] ([facility], [address] [place] [address] Ave [address] [place] [id number] 0 02/25 CBC w/ auto diff LY % % 16.0 51.0 39.6 FINAL Hayden Dumont [facility] ([facility], [address] [place] [address] Ave [address] [place] [id number] 0 02/25 CBC w/ auto diff MO % % 0.0 12.0 8.0 FINAL Hayden Dumont [facility] ([facility], [address] [place] [address] Ave [address] [place] [id number] 0 02/25 CBC w/ auto diff EO % % 0.0 8.0 3.0 FINAL Hayden Dumont [facility] ([facility])- [place], [address] [place] [id number] 0 02/25 CBC w/ auto diff BA % % 0.0 3.0 1.2 FINAL Hayden Dumont [facility] ([facility], [address] [place] [address] Ave [address] [place] [id number] 0 02/25 CBC w/ auto diff IG % % 0.0 1.0 0.20 FINAL Hayden Dumont [facility] ([facility], [address] [place] [id number] 0 02/25 CBC w/ auto diff Poli # (ANC) 10^3/u l 1.5 8.0 2.4 FINAL Hayden Dumont [facility] ([facility], [address] [place] [address] Ave [address] [place] [id number] 0 02/25 CBC w/ auto diff LY # 10^3/u l 0.8 4.0 2.0 FINAL Hayden Dumont [facility] ([facility], [address] [place] [address] Ave [address] [place] [id number] 0 02/25 CBC w/ auto diff MO # 10^3/u l 0.0 1.2 0.4 FINAL Hayden Dumont [facility] ([facility], [address] [place] [address] Ave [address] [place] [id number] 0 02/25 CBC w/ auto diff EO # 10^3/u l 0.0 0.3 0.2 FINAL Hayden Dumont [facility] ([facility], [address] [place] [address] Ave [address] [place] [id number] 0 02/25 CBC w/ auto diff BA # 10^3/u l 0.0 0.3 0.1 FINAL Hayden Dumont [facility] ([facility], [address] [place] [address] [address] [place] [id number] 0 02/25 CBC w/ auto diff IG # 10^3/u l 0.0 0.1 0.01 FINAL Hayden Dumont [facility] ([facility], [address] [place] [id number] 0 02/25 Iron profi le Iron ug/dl 30.0 160.0 95 FINAL Hayden [facility], [address] [place] [id number] 0 02/25 Iron profi le Iron, % satur ation % 15.0 50.0 37 FINAL Hayden [facility], [address] [place], [place] [address]e [address] [place] [id number] 0 02/25 Iron profi le TIBC ug/dl 228.0 428.0 259 FINAL Hayden [facility], [address] [place], [place] [address]e [address] [facility] [place] [id number] 0 02/25 Jessica tin panel Jessica tin ng/mL 13.0 150.0 54 FINAL [facility], [address] [place], [place] [address]e [address] [facility] [place] [id number] 0 Medications Date Name Route Dose Frequency [...] Date Type Value 05/29/2019 BSA 1.87 05/29/2019 Oxygen Saturation 97.00 05/29/2019 Body Temperature 97.80 05/29/2019 Heart Beat 90.00 05/29/2019 Respiratory Rate 18.00 05/29/2019 Intravascular Systolic 126 05/29/2019 Intravascular Diastolic [...] Print Location: Unknown Date/Time Printed: 06/13/2025 12:20 ([facility]) Patient: MARAH DIAL Sex: Female : [...] [facility]: [id number] Dispense/Waste: 510/0 mg Given Dose/Discard: 510/0 mg Admin Details: IV Administration: Piggyback Start Time: 14:06, Entered By: Hannah Weems RN, Stop Time: 14:37, Entered By: Hannah Weems RN Admix Fluid: 0.9 % sodium chloride, Admix Fluid Volume: 100mL, Total Volume: 127mL * Nurse Note for: 09-AUG-20 [facility] Nurse Note Print Location: Unknown Date/Time Printed: 06/13/2025 12:20 ([facility]) Patient: MAARH DIAL Sex: Female : 1995 Date of [...] [facility]: [id number] Dispense/Waste: 510/0 mg Given Dose/Discard: 510/0 mg [...] Print Location: Unknown Date/Time Printed: 06/13/2025 12:20 ([facility]) Patient: MARAH DIAL Sex: Female : [...] [facility]: [id number] Dispense/Waste: 510/0 mg Given Dose/Discard: 510/0 mg Start Time: 16:00, Entered By: Dimple Meza RN, Stop Time: 16:30, Entered By: Dimple Meza RN Admix Fluid: 0.9 % sodium chloride, Admix Fluid Volume: 100mL, Total Volume: 127mL
[2025-06-13 18:55] LABS: Beta HCG Quantitative < 2.39 mIU/ML
== END 2025-06-13 12:38 | disposition home or self-care (01) ==
LOC: ANHGOSHLAB 12:38
PROVIDERS: PCP Internal Medicine
DX: N92.6 Irregular menstruation, unspecified (principal)
CPT/HCPCS: 36415; 84702

== ENCOUNTER 2025-08-03 14:17 | Outpatient (CLI) | payer OTHER, SELFPAY ==
[2025-08-03 15:01] LABS: Hematocrit 45.0 % (37.0-47.0); Hemoglobin 15.7 g/dL (12.0-15.0); Mean Corpuscular HGB Conc 34.9 g/dl (32-36); Mean Corpuscular Hemoglobin 31.6 pg (26-34); Mean Corpuscular Volume 90.5 fl (80-100); Platelet Count Result 315 k/mm3 (150-375); Red Blood Count 4.97 M/mm3 (4.2-5.4); White Blood Count 5.5 K/mm3 (4.5-10.0)
[2025-08-03 15:27] LABS: Alanine Aminotransferase 17 U/L (6-35); Albumin Level 4.8 g/dL (3.5-5.1); Alkaline Phosphatase 64 U/L (38-126); Anion Gap 8 mmol/L (4-12); Aspartate Amino Transferase 25 U/L (14-36); Bilirubin,Total 0.5 mg/dL (0.2-1.3); Blood Urea Nitrogen 18 mg/dL (7-17); Calcium 9.4 mg/dL (8.4-10.2); Carbon Dioxide 25 mmol/L (22-30); Chloride 105 mmol/L (98-107); Estimated Glomerular Filt Rate > 60; Glucose 84 mg/dL (65-110); Potassium 3.9 mmol/L (3.4-5.0); Sodium 138 mmol/L (137-145); Total Protein 8.1 g/dL (6.3-8.2)
[2025-08-06 14:09] LABS: Deamidated Gliadin Abs, IgA 5 units (0-19); Deamidated Gliadin Abs, IgG 5 units (0-19); Immunoglobulin A, Qn 137 mg/dL (87-352)
== END 2025-08-03 14:18 | disposition home or self-care (01) ==
LOC: ANHLAB 14:19
PROVIDERS: PCP Internal Medicine; Visit Provider Nurse Practitioner
DX: K90.0 Celiac disease (principal)
CPT/HCPCS: 36415; 80053; 82784; 85027; 86231; 86258

== ENCOUNTER 2025-08-27 10:55 | Outpatient (CLI) | payer OTHER, SELFPAY ==
--- OUTSIDE RECORDS SUMMARY | 2024-06-13 03:30 | XMS_ITS ---
Author Organization [facility] [employer] [facility] [employer] [facility] ([address]) Address [address] [place] [phone] Care Team Providers Care Assistant Grocery Name Role Phone Milan Pillai Unavailable [phone] Raghu Johnson Unavailable Unavailable REASON FOR VISIT InBody Follow-up Social History Sex Assigned At : Social History Observation Description Sex Assigned At Female Encounters Encounter Location Date Provider Diagnosis [facility] [facility] ([address]) [address] [place] [phone] 06/13/2024 Milan Pillai Plan Of Treatment No Information Progress Notes * Mike DIALiDOB: 3 (30 yo F)Acc No.[id number]:06/13/2024 InBody Follow-up Patient: Jo-Ann LALA Provider: Jennifer Pillai MD :1995 A ge:28 Y S ex:Female Date:06/13/2024 Address:[address], [id number] Subjective: * Chief Complaints: * 1 . In[facility] Follow-up. * Medical History: Objective: * Vitals: Assessment: Plan: * Treatment: * Billing Information: * Visit Code: * Procedure Codes: * Electronic signature of John Pillai MD, FAAAAI on 08/27/2025 at 11:37 AM SCALE ATTENDANT Sign off status: Pending * Provider: Jennifer Pillai MD Date: 1 Generated for Guevara vega/Nico/Vishnu on: 1 11:37 AM SCALE ATTENDANT
--- OUTSIDE RECORDS SUMMARY | 2024-06-13 03:30 | XMS_ITS ---
Author Organization [facility] ([address]) Address [address] [place] [phone] Care Team Providers Care Turnaround Engineer Name Role Phone Milan Pillai [phone] Raghu Johnson Unavailable Unavailable REASON FOR VISIT [facility], on Tirzepatide, reports some constipation over the last week, is drinking the GI cocktail every morning, appetite suppression lasting 6-7 days, Desired weight loss: 40-50 lbs, -2.6 lbs since last visit, - 13.4 lbs total, No history MTC or MEN2 or pancreatitis, Concerned about future DM and OA Social History Sex Assigned At : Social History Observation Description Sex Assigned At Female Encounters Encounter Location Date Provider Diagnosis [facility] ([address]) [address] [place] [phone] 06/13/2024 Milan Pillai Abnormal weight gain R63.5 ; Hypothyroidism, unspecified E03.9 ; Chronic fatigue, unspecified R53.82 ; Other fatigue R53.83 and Other malaise R53.81 Assessments Encounter Date Diagnosis (ICD Code) Assessment Notes Treatment Notes Treatment Clinical Notes Section Notes 06/13/2024 Abnormal weight gain (ICD-10 - R63.5) 06/13/2024 Hypothyroidism, unspecified (ICD-10 - E03.9) 06/13/2024 Chronic fatigue, unspecified (ICD-10 - R53.82) 06/13/2024 Other fatigue (ICD-10 - R53.83) 06/13/2024 Other malaise (ICD-10 - R53.81) Plan Of Treatment Next Appt Details Follow Up: 1 Week, Reason: G LP-1 Agonist Administration Procedure Notes * Category Sub-Category Detail Notes [facility]: Weight Management tirzepatide Indication: weig ht loss Concentration: 10 mg/mL Volume Administered: 0.1 mL Dose Administered: 1 mg Route: SQ Location: Right abdomen Frequency: weekly Lot Number/Expiration: Medication Source: [facility] Adverse Reaction: None Progress Notes * Mike DIALiDOB: 3 (30 yo F)Acc No.[id number]:06/13/2024 Weight Loss Patient: Jo-Ann LALA Provider: Jennifer Pillai MD :1995 A ge:28 Y S ex:Female Date:06/13/2024 Address:[address] [place] [address], [id number] Subjective: * Chief Complaints: * 1 . [facility], on Tirzepatide, reports some constipation over the last week, is drinking the GI cocktail every morning, appetite suppression lasting 6- 7 days. 2. Desired weight loss: 40-50 lbs, -2.6 lbs since last visit, -13.4 lbs total. 3. No history MTC or MEN2 or pancreatitis. 4. Concerned about future DM and OA. * HPI: * Aesthetics & Wellness: The risks, benefits & alternatives were discussed regarding available treatment options. A treatment path was determined after reviewing the patients medical records, our verbal discussions and via joint decision-making Consents for our planned treatments were signed and are on file. * Medical History: Objective: * Vitals: Assessment: * Assessment: 1. H ypothyroidism, unspecified - E03.9 (Primary) 2 . A bnormal weight gain - R63.5 3 . C hronic fatigue, unspecified - R53.82 4 . O ther fatigue - R53.83 5 . O ther malaise - R53.81 Plan: * Treatment: * Procedures: [facility]: Weight Management: tirzepatide I ndication w eight loss C oncentration 1 0 mg/mL V olume Administered 0 .1 mL D ose Administered 1 mg R oute S Q L ocation R ight abdomen F requency w eekly L ot Number/Expiration 0 M edication Source [facility] A dverse Reaction N one * Follow Up: 1 Week (Reason: GLP-1 Agonist Administration) * Billing Information: * Visit Code: * Procedure Codes: 14353 [facility] - Weekly (tirzepatide) (0.5-5 mg) Tier 1. Units: 4.00. * Electronic signature of John Pillai MD, FAAAAI on 08/27/2025 at 11:36 AM STRIP MILL OPERATOR Sign off status: Pending * Provider: Jennifer Pillai MD Date: 1 Generated for Mpi silvia/Nico/eTransmitting on: 11:36 AM STRIP MILL OPERATOR History and Physical Notes * HPI (History of Present Illness) Category Sub-Category Detail Notes Category Not es *Aesthetics & Wellness The r isks, benefits & alternatives were discussed regarding available treatment options. A treatment path was determined after reviewing the patients medical records, our verbal discussions and via joint decision-making Consents for our planned treatments were signed and are on file
--- OUTSIDE RECORDS SUMMARY | 2024-06-14 03:15 | XMS_ITS ---
Author Organization [facility] ([address]) Address [address] [place] [address] Care Team Providers Care Metalworker Name Role Phone Milan Pillai Unavailable [phone] Raghu Johnson Unavailable Unavailable REASON FOR VISIT InBody Follow-up, reviewed InBody, muscle growth noted. no new concerns Medications Medication SIG (Take, Route, Frequency, Duration) Notes Start Date End Date Status NASAL WASHES N/A DIRECTED INTRANASALLY NEEDED; Duration: 30 *Please review for potential replacement for e-prescription and drug interaction check* Active Auvi-Q 0.3 MG/0.3ML as directed intramuscularly once; Duration: 30 days Active SIT (TRADITIONAL) VARIABLE PER SCHEDULE SC PER SCHEDULE; Duration: TO BE DETERMINED *Please review for potential replacement for e-prescription and drug interaction check* 02/08/2023 Active Pantoprazole Sodium 40 MG 1 tab(s) orally once a day Active ROBAXIN-750 *Please review for potential replacement for e-prescription and drug interaction check* Active Cetirizine HCl 10 MG 1 tab(s) orally once a day; Duration: 30 days Active Fluticasone Propionate 50 MCG/ACT 2 spray(s) in each nostril BID; Duration: 30 day(s) Active Social History Sex Assigned At : Social History Observation Description Sex Assigned At Female Encounters Encounter Location Date Provider Diagnosis [facility] ([address]) [address] [place] [phone] 06/14/2024 Milan Pillai Plan Of Treatment No Information Progress Notes * Oskar DIALB: 3 (30 yo F)Acc No.[id number]:06/14/2024 InBody Follow-up Patient: Jo-Ann LALA Provider: Jennifer Pillai MD :1995 A ge:28 Y S ex:Female Date:06/14/2024 Address:[address] [place] [address], [id number] Subjective: * Chief Complaints: * 1 . InBody Follow-up, reviewed InBody, muscle growth noted. no new concerns. * Medical History: * Medications: T aking Cetirizine HCl 10 MG Tablet 1 tab(s) orally once a day , Taking Fluticasone Propionate 50 MCG/ACT Suspension 2 spray(s) in each nostril BID , Taking ROBAXIN-750 , Notes to Pharmacist: *Please review for potential replacement for e- prescription and drug interaction check*, Taking Pantoprazole Sodium 40 MG Tablet Delayed Release 1 tab(s) orally once a day , Taking Auvi-Q 0.3 MG/0.3ML Solution Auto-injector as directed intramuscularly once , Taking NASAL WASHES N/A 1 QUART OF STERILIZED TAP WATER OR DISTILLED WATER, 1 TSP NACL, 1 PINCH OF BAKING SODA DIRECTED INTRANASALLY NEEDED , Notes to Pharmacist: *Please review for potential replacement for e-prescription and drug interaction check*, Taking SIT (TRADITIONAL) VARIABLE SEE RECORD PER SCHEDULE SC PER SCHEDULE , Notes to Pharmacist: *Please review for potential replacement for e-prescription and drug interaction check* Objective: * Vitals: Assessment: Plan: * Treatment: * Billing Information: * Visit Code: * Procedure Codes: [address] * Electronic signature of John Pillai MD, FAAAAI on 08/27/2025 at 11:37 AM ENROLLMENT SERVICES DEAN Sign off status: Pending * Provider: Jennifer Pillai MD Date: Generated for Printi ng/Maria De Jesusg/eTransmitting on: 11:37 AM ENROLLMENT SERVICES DEAN
--- OUTSIDE RECORDS SUMMARY | 2024-06-14 03:15 | XMS_ITS ---
Author Organization [facility] [place] ([address]) Address [address] [place] [address] Care Team Providers Care Welder Name Role Phone Milan Pillai Unavailable [phone] Raghu Johnson Unavailable Unavailable REASON FOR VISIT [facility], on Tirzepatide, drinking the GI cocktail every morning, appetite suppression lasting 6-7 days, reports hyponatremia, decreased water consumption, switching to broth instead., Desired weight loss: 40-50 lbs, -4.3 lbs since last visit, -17.7 lbs total, No history MTC or MEN2 or pancreatitis, Concerned about future DM and OA Medications Medication SIG (Take, Route, Frequency, Duration) Notes Start Date End Date Status ROBAXIN-750 *Please review for potential replacement for e-prescription and drug interaction check* Active Pantoprazole Sodium 40 MG 1 tab(s) orally once a day Active Auvi-Q 0.3 MG/0.3ML as directed intramuscularly once; Duration: 30 days Active Cetirizine HCl 10 MG 1 tab(s) orally once a day; Duration: 30 days Active Fluticasone Propionate 50 MCG/ACT 2 spray(s) in each nostril BID; Duration: 30 day(s) Active NASAL WASHES N/A DIRECTED INTRANASALLY NEEDED; Duration: 30 *Please review for potential replacement for e-prescription and drug interaction check* Active SIT (TRADITIONAL) VARIABLE PER SCHEDULE SC PER SCHEDULE; Duration: TO BE DETERMINED *Please review for potential replacement for e-prescription and drug interaction check* 02/08/2023 Active Social History Sex Assigned At : Social History Observation Description Sex Assigned At Female Vital Signs Height 63 in 06/14/2024 Weight 165.5 lbs 06/14/2024 BMI 29.31 kg/m2 06/14/2024 165 Encounters Encounter Location Date Provider Diagnosis Que - [facility] [place] ([address]) [address] [address] 06/14/2024 Milan Pillai Abnormal weight gain R63.5 ; Hypothyroidism, unspecified E03.9 ; Chronic fatigue, unspecified R53.82 ; Other fatigue R53.83 and Other malaise R53.81 Assessments Encounter Date Diagnosis (ICD Code) Assessment Notes Treatment Notes Treatment Clinical Notes Section Notes 06/14/2024 Abnormal weight gain (ICD-10 - R63.5) 06/14/2024 Hypothyroidism, unspecified (ICD-10 - E03.9) 06/14/2024 Chronic fatigue, unspecified (ICD-10 - R53.82) 06/14/2024 Other fatigue (ICD-10 - R53.83) 06/14/2024 Other malaise (ICD-10 - R53.81) Plan Of Treatment Next Appt Details Follow Up: 1 Week, Reason: G LP-1 Agonist Administration Procedure Notes * Category Sub-Category Detail Notes Quell: Weight Management tirzepatide Indication: weig ht loss Concentration: 10 mg/mL Volume Administered: 0.1 mL Dose Administered: 1 mg Route: SQ Location: Right abdomen Frequency: weekly Lot Number/Expiration: Medication Source: [facility] Adverse Reaction: None Progress Notes * Mike DIALiDOB: 3 (30 yo F)Acc No.[id number]:06/14/2024 Weight Loss Patient: Jo-Ann LALA Provider: Jennifer Pillai MD :1995 A ge:28 Y S ex:Female Date:06/14/2024 Address:[address] [place] [address], [id number] Subjective: * Chief Complaints: * 1 . [facility], on Tirzepatide, drinking the GI cocktail every morning, appetite suppression lasting 6-7 days, reports hyponatremia, decreased water consumption, switching to broth instead.. 2. Desired weight loss: 40-50 lbs, - 4.3 lbs since last visit, -17.7 lbs total. 3. No history MTC or [...] and are on file. * Medical History: * Medications: T aking [...] and drug interaction check* Objective: * Vitals: H t: 63 in, Wt: 165.5 lbs, BMI:29.31Index. 165. Assessment: * Assessment: 1. H ypothyroidism, unspecified [...] 0 M edication Source [facility] A dverse Reaction N one * Follow Up: 1 Week (Reason: GLP-1 Agonist Administration) * Billing Information: * Visit Code: * Procedure Codes: 07106 Quell - Weekly (tirzepatide) (0.5-5 mg) Tier 1. Units: 4.00. * Electronic signature of Patrenetta Pillai MD, FAAAAI on 08/27/2025 at 11:37 AM FIXTURE DESIGNER Sign off status: Pending * Provider: Jennifer Pillai MD Date: 1 Generated for Guevara vega/Nico/Guilleitting on: 11:37 AM FIXTURE DESIGNER History and Physical Notes * HPI (History [...]
--- OUTSIDE RECORDS SUMMARY | 2024-07-13 03:15 | XMS_ITS ---
Author Organization [employer] [facility] [facility] [employer] [place] ([address]) Address [address] [place] [address] Care Team Providers Care Fur Tailor Name Role Phone Milan Pillai Unavailable [phone] Raghu Johnson Unavailable Unavailable REASON FOR VISIT [facility] Follow-up, 12% skeletal muscle mass loss since starting the program, encouraged increased daily protein intake, reports that she has increased resistance training the last couple weeks Medications Medication SIG (Take, Route, Frequency, Duration) Notes Start Date End Date Status ROBAXIN-750 *Please review for potential replacement for e-prescription and drug interaction check* Active Pantoprazole Sodium 40 MG 1 tab(s) orally once a day Active Auvi-Q 0.3 MG/0.3ML as directed intramuscularly once; Duration: 30 days Active NASAL WASHES N/A DIRECTED INTRANASALLY NEEDED; Duration: 30 *Please review for potential replacement for e-prescription and drug interaction check* Active SIT (TRADITIONAL) VARIABLE PER SCHEDULE SC PER SCHEDULE; Duration: TO BE DETERMINED *Please review for potential replacement for e-prescription and drug interaction check* 02/08/2023 Active Cetirizine HCl 10 MG 1 tab(s) orally once a day; Duration: 30 days Active Fluticasone Propionate 50 MCG/ACT 2 spray(s) in each nostril BID; Duration: 30 day(s) Active Social History Sex Assigned At : Social History Observation Description Sex Assigned At Female Encounters Encounter Location Date Provider Diagnosis [facility] [place] ([address]) [address] [place] [address] 07/13/2024 Milan Pillai Plan Of Treatment No Information Progress Notes * Oskar DIALB: 3 (30 yo F)Acc No.[id number]:07/13/2024 In[facility] Follow-up Patient: Jo-Ann LALA Provider: Jennifer Pillai MD :1995 A ge:29 Y S ex:Female Date:07/13/2024 Address:[address] [place] [address], [id number] Subjective: * Chief Complaints: * 1 . [facility] Follow-up, 12% skeletal muscle mass loss since starting the program, encouraged increased daily protein intake, reports that she has increased resistance training the last couple weeks. * Medical History: * Medications: T aking [...] Information: * Visit Code: * Procedure Codes: 85468 In[facility] Subscription (monthly). * Electronic signature of John Pillai MD, FAAAAI on 08/27/2025 at 11:38 AM EDUCATIONAL FUNDRAISING DIRECTOR Sign off status: Pending * Provider: Jennifer Pillai MD Date: 09/12/2023 Generated for Printi ng/Nico/Guilleitting on: 1 11:38 AM EDUCATIONAL FUNDRAISING DIRECTOR
--- OUTSIDE RECORDS SUMMARY | 2024-07-13 03:15 | XMS_ITS ---
Author Organization [facility] [place] ([address]) Address [address] [place] [address] Care Team Providers Care Senior Scheduler Name Role Phone Milan Pillai Unavailable [phone] Raghu Johnson Unavailable Unavailable REASON FOR VISIT [facility], on Tirzepatide, drinking the GI cocktail daily, appetite suppression lasting 5-6 days, reports hyponatremia, decreased water consumption, switching to broth instead. switching to maintenance dosing q2 weeks, Desired weight loss: 40-50 lbs, -4.1 lbs since last visit, -21.1lbs total, No history MTC or MEN2 or pancreatitis, Concerned about future DM and OA Medications Medication SIG (Take, Route, Frequency, Duration) Notes Start Date End Date Status SIT (TRADITIONAL) VARIABLE PER SCHEDULE SC PER SCHEDULE; Duration: TO BE DETERMINED *Please review for potential replacement for e-prescription and drug interaction check* 02/08/2023 Active Cetirizine HCl 10 MG 1 tab(s) orally once a day; Duration: 30 days Active Fluticasone Propionate 50 MCG/ACT 2 spray(s) in each nostril BID; Duration: 30 day(s) Active ROBAXIN-750 *Please review for potential replacement for e-prescription and drug interaction check* Active Pantoprazole Sodium 40 MG 1 tab(s) orally once a day Active Auvi-Q 0.3 MG/0.3ML as directed intramuscularly once; Duration: 30 days Active NASAL WASHES N/A DIRECTED INTRANASALLY NEEDED; Duration: 30 *Please review for potential replacement for e-prescription and drug interaction check* Active Social History Sex Assigned At : Social History Observation Description Sex Assigned At Female Vital Signs Height 63 in 07/13/2024 Weight 161.4 lbs 07/13/2024 BMI 28.59 kg/m2 07/13/2024 Encounters Encounter Location Date Provider Diagnosis Que - [facility] [place] ([address]) [address] [address] 07/13/2024 Milan Pillai Abnormal weight gain R63.5 ; Hypothyroidism, unspecified E03.9 ; Chronic fatigue, unspecified R53.82 ; Other fatigue R53.83 and Other malaise R53.81 Assessments Encounter Date Diagnosis (ICD Code) Assessment Notes Treatment Notes Treatment Clinical Notes Section Notes 07/13/2024 Abnormal weight gain (ICD-10 - R63.5) 07/13/2024 Hypothyroidism, unspecified (ICD-10 - E03.9) 07/13/2024 Chronic fatigue, unspecified (ICD-10 - R53.82) 07/13/2024 Other fatigue (ICD-10 - R53.83) 07/13/2024 Other malaise (ICD-10 - R53.81) Plan Of Treatment Next Appt Details Follow Up: 1 Week, Reason: G LP-1 Agonist Administration Procedure Notes * Category Sub-Category Detail Notes Quell: Weight Management tirzepatide Indication: weig ht loss Concentration: 10 mg/mL Volume Administered: 0.1 mL Dose Administered: 1 mg Route: SQ Location: Right abdomen Frequency: weekly Lot Number/Expiration: Medication Source: [facility] Adverse Reaction: None Progress Notes * Oskar DIALB: 3 (30 yo F)Acc No.[id number]:07/13/2024 Weight Loss Patient: Jo-Ann LALA Provider: Jennifer Pillai MD :1995 A ge:29 Y S ex:Female Date:07/13/2024 Address:[address] [place] [address], [id number] Subjective: * Chief Complaints: * 1 . [facility], on Tirzepatide, drinking the GI cocktail daily, appetite suppression lasting 5-6 days, reports hyponatremia, decreased water consumption, switching to broth instead. switching to maintenance dosing q2 weeks. 2. Desired weight loss: 40-50 lbs, -4.1 lbs since last visit, -21.1 lbs total. 3. No history MTC or [...] * Vitals: H t: 63 in, Wt: 161.4 lbs, BMI:28.59Index. Assessment: * Assessment: 1. H ypothyroidism, unspecified [...] ot Number/Expiration 0 M edication Source [facility] A dverse Reaction N one * Follow Up: 1 Week (Reason: GLP-1 Agonist Administration) * Billing Information: * Visit Code: * Procedure Codes: 39868 Quell - Weekly (tirzepatide) (0.5-5 mg) Tier 1. Units: 4.00. * Electronic signature of John Pillai MD, FAAAAI on 08/27/2025 at 11:38 AM MEDICAL BILLING INSTRUCTOR Sign off status: Pending * Provider: Jennifer Pillai MD Date: 09/12/2023 Generated for Guevara vega/Nico/Vishnu on: 11:38 AM MEDICAL BILLING INSTRUCTOR History and Physical Notes * HPI (History [...]
--- OUTSIDE RECORDS SUMMARY | 2024-08-10 03:15 | XMS_ITS ---
Author Organization [facility] [employer] [place] ([address]) Address [address] [place] [address] Care Team Providers Care Java User Interface Developer Name Role Phone Milan Pillai Unavailable [phone] Raghu Johnson Unavailable Unavailable REASON FOR VISIT In[facility] Follow-up Social History Sex Assigned At : Social History Observation Description Sex Assigned At Female Encounters Encounter Location Date Provider Diagnosis [facility] [employer] [place] ([address]) [address] [place] [address] 08/10/2024 Milan Pillai Plan Of Treatment No Information Progress Notes * Mike DIALiDOB: 3 (30 yo F)Acc No.[id number]:08/10/2024 InBody Follow-up Patient: Jo-Ann LALA Provider: Jennifer Pillai MD :1995 A ge:29 Y S ex:Female Date:08/10/2024 Address:[address], [id number] Subjective: * Chief Complaints: * 1 . InBody Follow-up. * Medical History: Objective: * Vitals: Assessment: Plan: * Treatment: * Billing Information: * Visit Code: * Procedure Codes: 89323 [facility] * Electronic signature of John Pillai MD, FAAAAI on 08/27/2025 at 11:37 AM PROCESSING TECH Sign off status: Pending * Provider: Jennifer Pillai MD Date: 1 10/11/2023 Generated for Guevara vega/Nico/Vishnu on: 11:37 AM PROCESSING TECH
--- OUTSIDE RECORDS SUMMARY | 2024-08-10 03:15 | XMS_ITS ---
Author Organization [facility] [place] ([address]) Address [address] [place] [address] Care Team Providers Care Optometry Assistant Name Role Phone Milan Pillai Unavailable [phone] Raghu Johnson Unavailable Unavailable REASON FOR VISIT [facility], on Tirzepatide, drinking the GI cocktail daily, appetite suppression lasting 5-6 days, reports hyponatremia, decreased water consumption, switching to broth instead. switching to maintenance dosing q2 weeks, reports increased nausea and vomiting due to hypoglycemia, encouraged increased calorie intake during the day, reports not eating regularly, Desired weight loss: 40-50 lbs, -0.6 lbs since last visit, -21.7 lbs total, No history MTC or MEN2 or pancreatitis, Concerned about future DM and OA Medications Medication SIG (Take, Route, Frequency, Duration) Notes Start Date End Date Status Pantoprazole Sodium 40 MG 1 tab(s) orally [...] e-prescription and drug interaction check* 02/08/2023 Active ROBAXIN-750 *Please review for potential replacement for e-prescription and drug interaction check* Active Fluticasone Propionate 50 MCG/ACT 2 spray(s) in each nostril BID; Duration: 30 day(s) Active Cetirizine HCl 10 MG 1 tab(s) orally once a day; Duration: 30 days Active Social History Sex Assigned At : Social History Observation Description Sex Assigned At Female Vital Signs Height 63 in 08/10/2024 Weight 160.8 lbs 08/10/2024 BMI 28.48 kg/m2 08/10/2024 Encounters Encounter Location Date Provider Diagnosis [facility] [place] ([address]) [address] [address] 08/10/2024 Milan Pillai Abnormal weight gain R63.5 ; Hypothyroidism, unspecified E03.9 ; Chronic fatigue, unspecified R53.82 ; Other fatigue R53.83 and Other malaise R53.81 Assessments Encounter Date Diagnosis (ICD Code) Assessment Notes Treatment Notes Treatment Clinical Notes Section Notes 08/10/2024 Abnormal weight gain (ICD-10 - R63.5) 08/10/2024 Hypothyroidism, unspecified (ICD-10 - E03.9) 08/10/2024 Chronic fatigue, unspecified (ICD-10 - R53.82) 08/10/2024 Other fatigue (ICD-10 - R53.83) 08/10/2024 Other malaise (ICD-10 - R53.81) Plan Of Treatment Next Appt Details Follow Up: 1 Week, Reason: G LP-1 Agonist Administration Procedure Notes * Category Sub-Category Detail Notes Quell: Weight Management tirzepatide Indication: weig ht loss Concentration: 10 mg/mL Volume Administered: 0.1 mL Dose Administered: 1 mg Route: SQ Location: Right abdomen Frequency: weekly Lot Number/Expiration: Medication Source: [employer]unding Adverse Reaction: None Progress Notes * JAYROOskar GARCIAB: 3 (30 yo F)Acc No.[id number]:08/10/2024 Weight Loss Patient: Jo-Ann LALA Provider: Jennifer Pillai MD :1995 A ge:29 Y S ex:Female Date:08/10/2024 [address], [place], [id number] Subjective: * Chief Complaints: * 1 . [facility], on Tirzepatide, drinking the GI cocktail daily, appetite suppression lasting 5-6 days, reports hyponatremia, decreased water consumption, switching to broth instead. switching to maintenance dosing q2 weeks, reports increased nausea and vomiting due to hypoglycemia, encouraged increased calorie intake during the day, reports not eating regularly. 2. Desired weight loss: 40- 50 lbs, -0.6 lbs since last visit, -21.7 lbs total. 3. No history MTC or [...] * Vitals: H t: 63 in, Wt: 160.8 lbs, BMI:28.48Index. Assessment: * Assessment: 1. H ypothyroidism, unspecified [...] requency w eekly L ot Number/Expiration 0 -2024 M edication Source A [facility] [employer] A dverse Reaction N one * Follow Up: 1 Week (Reason: GLP-1 Agonist Administration) * Billing Information: * Visit Code: * Procedure Codes: 43877 Quell - Weekly (tirzepatide) (0.5-5 mg) Tier 1. Units: 4.00. * Electronic signature of Patrenetta Pillai MD, FAAAAI on 08/27/2025 at 11:36 AM RIVETER HELPER Sign off status: Pending * Provider: Jennifer Pillai MD Date: 10/11/2023 Generated for Mpi silvia/Nico/eTransmitting on: 11:36 AM RIVETER HELPER History and Physical Notes * HPI (History [...]
--- OUTSIDE RECORDS SUMMARY | 2024-08-31 03:15 | XMS_ITS ---
Author Organization [employer] [facility] [employer] [place] ([address]) Address [address] [place] [address] Care Team Providers Care Child Watch Attendant Name Role Phone Milan Pillai Unavailable [phone] Raghu Johnson Unavailable Unavailable REASON FOR VISIT [facility], on Tirzepatide, drinking [...] Encounters Encounter Location Date Provider Diagnosis [facility] [employer] [facility] [employer] [place] ([address]) [address] [place] [phone] 08/31/2024 Milan Pillai Abnormal weight gain R63.5 ; Hypothyroidism, unspecified E03.9 ; Chronic fatigue, unspecified R53.82 ; Other fatigue R53.83 and Other malaise R53.81 Assessments Encounter Date Diagnosis (ICD Code) Assessment Notes Treatment Notes Treatment Clinical Notes Section Notes 08/31/2024 Abnormal weight gain (ICD-10 - R63.5) 08/31/2024 Hypothyroidism, unspecified (ICD-10 - E03.9) 08/31/2024 Chronic fatigue, unspecified (ICD-10 - R53.82) 08/31/2024 Other fatigue (ICD-10 - R53.83) 08/31/2024 Other malaise (ICD-10 - R53.81) Plan Of [...] ounding Adverse Reaction: None Progress Notes * Mike DIALiDOB: 3 (30 yo F)Acc No.[id number]:08/31/2024 Weight Loss Patient: Jo-Ann LALA Provider: Jennifer Pillai MD :1995 A ge:29 Y S ex:Female Date:08/31/2024 Address:[address] [place] [address], [id number] Subjective: * Chief Complaints: * [...] Information: * Visit Code: * Procedure Codes: 03297 Quell - Weekly (tirzepatide) (0.5-5 mg) Tier 1. Units: 4.00. * Electronic signature of John Pillai MD, FAAAAI on 08/27/2025 at 11:36 AM NUCLEAR POWERPLANT MECHANIC HELPER Sign off status: Pending * Provider: Jennifer Pillai MD Date: 0 08/31/2024 Generated for Printi ng/Faadryg/eTransmitting on: 1 11:36 AM NUCLEAR POWERPLANT MECHANIC HELPER History and Physical Notes * HPI [...]
--- OUTSIDE RECORDS SUMMARY | 2024-09-07 03:15 | XMS_ITS ---
Author Organization [facility] [employer] [facility] [employer] [place] ([address]) Address [address] [place] [address] Care Team Providers Care Service Car Driver Name Role Phone Milan Pillai Unavailable [phone] Raghu Johnson Unavailable Unavailable REASON FOR VISIT InBody Follow-up Social History Sex Assigned At : Social History Observation Description Sex Assigned At Female Encounters Encounter Location Date Provider Diagnosis [facility] [employer] [place] ([address]) [address] [place] [address] 09/07/2024 Milan Pillai Plan Of Treatment No Information Progress Notes * Mike DIALiDOB: 3 (30 yo F)Acc No.[id number]:09/07/2024 InBody Follow-up Patient: Jo-Ann LALA Provider: Jennifer Pillai MD :1995 A ge:29 Y S ex:Female Date:09/07/2024 Address:[address], [id number] Subjective: * Chief Complaints: * 1 . InBody Follow-up. * Medical History: Objective: * Vitals: Assessment: Plan: * Treatment: * Billing Information: * Visit Code: * Procedure Codes: * Electronic signature of John Pillai MD, FAAAAI on 08/27/2025 at 11:38 AM LUNCHROOM AIDE Sign off status: Pending * Provider: Jennifer Pillai MD Date: 0 09/07/2024 Generated for Guevara vega/Nico/Vishnu on: 1 11:38 AM LUNCHROOM AIDE
--- OUTSIDE RECORDS SUMMARY | 2025-08-27 11:36 | XMS_ITS | Encounter Summary ---
Author Organization [facility] Address [address] [place] [address] Care Team Providers Care Assistant Merchandise Manager Name Role Phone Raghu Johnson MD Primary Care Provider [phone] Hayden Eduardo Primary Care Provider Encounter Details Date Type Department Care Team (Late st Contact Info) Description 02/05/2023 reQwipt Message Enc [facility] Multispecialty Care - [address] [place] [address] [address] [place], [place] [id number] Raghu Johnson MD [address] [place] [address] [address] [place], [place] [id number] Reyna dumont Social History Tobacco Use Types [...] Sex Assigned at Female 10/27/2024 1:42 PM INSURANCE CLAIM APPROVER Legal Sex Female 8:33 PM CDT Gender [...] documented as of this encounter Care Teams Assistant Merchandise Manager Relationship Specialty Start Date End Date Raghu Johnson MD [address] [address] PCP - General INTERNAL MEDICINE 01/02/22 09/15/23 [place] [address] [place] [address] PCP - General Physician Process Control Engineer Medical 09/16/23 documented as of this encounter
--- OUTSIDE RECORDS SUMMARY | 2025-08-27 11:36 | XMS_ITS | Encounter Summary ---
Author Organization [facility] Address [address] [place] [address] Care Team Providers Care Individualized Education Plan Aide Name Role Phone Raghu Johnson MD Primary Care Provider [phone] Hayden Eduardo Primary Care Provider [phone] Encounter Details Date Type Department Care Team (Late st Contact Info) Description 01/29/2023 Hello Healthhart Message Enc [facility] Multispecialty Care - [place] [address] [address] [place], [place] [id number] Raghu Johnson MD [address] [place] [address] [address] [place] [address] My back hurts Social History [...] Sex Assigned at Female 10/27/2024 1:42 PM AIR CONDITIONING UNIT ASSEMBLER Legal Sex Female 8:33 PM CDT Gender [...] documented as of this encounter Care Teams Individualized Education Plan Aide Relationship Specialty Start Date End Date Raghu Johnson MD [address] [address] PCP - General INTERNAL MEDICINE 01/02/22 09/15/23 [place] [address] [place] [address] PCP - General Physician Manager Education Medical 09/16/23 documented as of this encounter
--- OUTSIDE RECORDS SUMMARY | 2025-08-27 11:36 | XMS_ITS | Encounter Summary ---
Author Organization [facility] Address [address] [place] [address] Care Team Providers Care Auto Body Repairer Name Role Phone Raghu Johnson MD Primary Care Provider [phone] Hayden Eduardo Primary Care Provider [phone] Encounter Details Date Type Department Care Team (Late st Contact Info) Description 01/13/2023 Beat Freak Music Groupt Message Enc [facility] Medical Group Multispecialty Care - [place] [address] [address] [address] [place], [place] [id number] Raghu Johnson MD [address] [place] [address] [address] [place] [address] Thyroid Social History Tobacco Use [...] Sex Assigned at Female 10/27/2024 1:42 PM DIRECTOR OF CORPORATE STRATEGY Legal Sex Female 8:33 PM CDT Gender [...] documented as of this encounter Care Teams Auto Body Repairer Relationship Specialty Start Date End Date Raghu Johnson MD [address] [address] PCP - General INTERNAL MEDICINE 01/02/22 09/15/23 [place] [address] [place] [address] PCP - General Physician Barber Tool Sharpener Medical 09/16/23 documented as of this encounter
--- OUTSIDE RECORDS SUMMARY | 2025-08-27 11:36 | XMS_ITS | Encounter Summary ---
Author Organization [facility] Address [address] [place] [address] Care Team Providers Care Heater Installer Name Role Phone Raghu Johnson MD Primary Care Provider [phone] Hayden Eduardo Primary Care Provider [phone] Encounter Details Date Type Department Care Team (Late st Contact Info) Description 01/18/2023 Tune Clouthart Message Enc [facility] Medical Group Multispecialty Care - [place] [address] [address] [address] [place], [place] [id number] Raghu Johnson MD [address] [place] [address] [address] [place] [address] Poison keri Social History Tobacco [...] Sex Assigned at Female 10/27/2024 1:42 PM HAUL TRUCK DRIVER Legal Sex Female 8:33 PM CDT Gender [...] documented as of this encounter Care Teams Heater Installer Relationship Specialty Start Date End Date Raghu Johnson MD [address] [address] PCP - General INTERNAL MEDICINE 01/02/22 09/15/23 [place] [address] [place] [address] PCP - General Physician Group Sales Coordinator Medical 09/16/23 documented as of this encounter
--- OUTSIDE RECORDS SUMMARY | 2025-08-27 11:36 | XMS_ITS | Encounter Summary ---
Author Organization [facility] Address [facility] [place] [address] Care Team Providers Care Vocational Rehabilitation Administrator Name Role Phone Raghu Johnson MD Primary Care Provider [phone] Hayden Eduardo Primary Care Provider [phone] Encounter Details Date Type Department Care Team (Late st Contact Info) Description 06/23/2022 Minubot Message Enc [facility] Medical Group Multispecialty Care - [place] [address] [address] [address] [place], [place] [id number] Raghu Johnson MD [address] [place] [address] [address] [place] [address] Topiramate Social History Tobacco Use [...] Sex Assigned at Female 10/27/2024 1:42 PM BANK BOSS Legal Sex Female 8:33 PM CDT Gender [...] documented as of this encounter Care Teams Vocational Rehabilitation Administrator Relationship Specialty Start Date End Date Raghu Johnson MD [address] [address] PCP - General INTERNAL MEDICINE 01/02/22 09/15/23 [place] [address] [place] [address] PCP - General Physician Geography Instructor Medical 09/16/23 documented as of this encounter
--- OUTSIDE RECORDS SUMMARY | 2025-08-27 11:36 | XMS_ITS | Encounter Summary ---
Author Organization [facility] Address [address] [place] [address] Care Team Providers Care Laundry Folder Name Role Phone Raghu Johnson MD Primary Care Provider [phone] Hayden Eduardo Primary Care Provider [phone] Encounter Details Date Type Department Care Team (Latest Contact Info) Description 02/19/2023 smartwork solutions GmbHt Message Enc [facility] Medical Group Multispecialty Care - [place] [address] [address] [address] [place] [address] Raghu Johnson MD [address] [place] [address] [address] [place] [address] I have ring worm Social [...] Sex Assigned at Female 10/27/2024 1:42 PM FINANCIAL COST ANALYST Legal Sex Female 8:33 PM CDT Gender [...] documented as of this encounter Care Teams Laundry Folder Relationship Specialty Start Date End Date Raghu Johnson MD [address] [address] PCP - General INTERNAL MEDICINE 01/02/22 09/15/23 [place] [address] [place] [address] PCP - General Physician Synchronizer Medical 09/16/23 documented as of this encounter
--- OUTSIDE RECORDS SUMMARY | 2025-08-27 11:36 | XMS_ITS | Encounter Summary ---
Author Organization [facility] Address [facility] [place] [address] Care Team Providers Care Medical Instrument Cable Fabricator Name Role Phone Raghu Johnson MD Primary Care Provider [phone] Hayden Eduardo Primary Care Provider [phone] Encounter Details Date Type Department Care Team (Late st Contact Info) Description 07/06/2023 Enviable Abodet Message Enc [facility] Medical Group Multispecialty Care - [place] [address] [address] [address] [place], [place] [id number] Raghu Johnson MD [address] [place] [address] [address] [place] [address] Neck Social History Tobacco Use [...] Sex Assigned at Female 10/27/2024 1:42 PM TARGET SETTER Legal Sex Female 8:33 PM CDT Gender [...] documented as of this encounter Care Teams Medical Instrument Cable Fabricator Relationship Specialty Start Date End Date Raghu Johnson MD [address] [address] PCP - General INTERNAL MEDICINE 01/02/22 09/15/23 [place] [address] [place] [address] PCP - General Physician Insulation Engineman Medical 09/16/23 documented as of this encounter
--- OUTSIDE RECORDS SUMMARY | 2025-08-27 11:36 | XMS_ITS | Encounter Summary ---
Author Organization [facility] Address [address] [place] [address] Care Team Providers Care Printing Specialist Name Role Phone Raghu Johnson MD Primary Care Provider [phone] Hayden Eduardo Primary Care Provider [phone] Encounter Details Date Type Department Care Team (Latest Contact Info) Description 05/27/20[address] Social Trends Mediat [address] [facility] Medical Group Multispecialty Care - [place] [address] [address] [address] [place] [address] Raghu Johnson MD [address] [place] [address] [address] [place] [address] Asthma, allergy and immunology Social [...] Sex Assigned at Female 10/27/2024 1:42 PM LIFELINE REPRESENTATIVES Legal Sex Female 8:33 PM CDT Gender [...] documented as of this encounter Care Teams Printing Specialist Relationship Specialty Start Date End Date Raghu Johnson MD [address] [address] PCP - General INTERNAL MEDICINE 01/02/22 09/15/23 [place] [address] [place] [address] PCP - General Physician Value Stream Coach Medical 09/16/23 documented as of this encounter
--- OUTSIDE RECORDS SUMMARY | 2025-08-27 11:36 | XMS_ITS | Encounter Summary ---
Author Organization [facility] Address [address] [place] [address] Care Team Providers Care Bargain Table Clerk Name Role Phone Raghu Johnson MD Primary Care Provider [phone] Hayden Eduardo Primary Care Provider [phone] Encounter Details Date Type Department Care Team (Late st Contact Info) Description 02/24/2023 MyChart Message Enc [facility] Medical Group [facility] [address] [place], [place] [address] Mychart, [facility] Provider Air Quality Message Social History Tobacco [...] Sex Assigned at Female 10/27/2024 1:42 PM INSPECTOR MULTIFOCAL LENS Legal Sex Female 8:33 PM CDT Gender [...] documented as of this encounter Care Teams Bargain Table Clerk Relationship Specialty Start Date End Date Raghu Johnson MD [address] [facility] [address] [place] [address] PCP - General INTERNAL MEDICINE 01/02/22 09/15/23 [place] [address] [place] [address] PCP - General Physician Firmware Software Verification Engineer Medical 09/16/23 documented as of this encounter
--- OUTSIDE RECORDS SUMMARY | 2025-08-27 11:37 | XMS_ITS ---
Author Name Interface, [id number] lity Address [address] [place] [address] Organization [facility] Address [address] [place] [address] Allergies and Adverse Reactions Medication/Group Name Reaction [...] Nurse Note Print Location: Unknown Date/Time Printed: 08/27/2025 09:37 ([facility]) Patient: MARAH DIAL Sex: Female : [...] mg Amount in mL: 17 Pharmacy dispense: [facility]: [id number] Dispense/Waste: 510/0 mg Given Dose/Discard: 510/0 mg Admin Details: IV Administration: Piggyback Start Time: 14:06, Entered By: Hannah Weems RN, Stop Time: 14:37, Entered By: Hannah Weems RN Admix Fluid: 0.9 % sodium chloride, Admix Fluid Volume: 100mL, Total Volume: 127mL
--- OUTSIDE RECORDS SUMMARY | 2025-08-27 11:37 | XMS_ITS | CCD ---
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
--- OUTSIDE RECORDS SUMMARY | 2025-08-27 11:37 | XMS_ITS | Clinical Summary ---
Author Organization [facility] Address [address], [facility] [address] [place] [address] Phone Care Team Providers Care Rig Builder Name Role Phone Raghu Johnson MD Primary Care Provider [phone] Markell Ortega MD Unavailable [phone] Allergies Active Allergy Reactions Criticality Noted Date [...] Lnp-s, Pf, 3 0 Mcg/0.3 Ml Dose (Cint) 12/16/2020,11/29/2020 Hepatitis A And Hepatitis B Vaccine [...] Years Used Date Smoking Tobacco: Former Cigarettes 0 Q uit: 01/29/2013 Smokeless Tobacco: Never Alcohol [...] series) 2068 Meningococcal Immunization (ACWY) Completed 04/08/2012 Varicella Immunization Completed 05/25/2012, 2011 Hepatitis B Immunization Completed 013, 10/28/2012, 05/25/2012, Additional history exists Human Papillomavirus (HPV) Immunization Completed 12/29/2013, 01/17/2013, 11/30/2012 DTaP/Tdap/Td Immunization Discontinued 2021, 09/30/2016, 04/08/2012 Rotavirus Immunization Aged Out No lo nger eligible based on patient's age to complete this topic Insurance [address] [address] Care Teams Rig Builder Relationship Specialty Start Date End Date Raghu Johnson MD [address] [facility] [address] [place] [address] PCP - General Internal Medicine 01/09/22 Markell Ortega MD [address] [place] [id number] Consulting Physician Oncology 01/09/22
--- OUTSIDE RECORDS SUMMARY | 2025-08-27 11:38 | XMS_ITS ---
Author Name Interface, [id number] lity Address [address] [place] [address] Organization [facility] Address [address] [place] [address] Allergies and Adverse Reactions Medication/Group Name Reaction [...] Lab Address 07/19 Lab Repor t See hair baler d 10/03 Lab Repor t See hair baler d 10/07 CT scan resul t See hair baler d 02/25 CBC w/ auto diff WBC 10^3/u l 4.0 11.0 5.0 FINAL [facility] ([facility], [address] [place] [id number] 0 02/25 CBC w/ auto diff RBC 10^6/u l 3.8 5.2 4.54 FINAL [facility] ([facility], [address] [place] [id number] 0 02/25 CBC w/ auto diff HGB g/dl 11.5 16.0 14.5 FINAL [facility] ([facility], [address] [place] [id number] 0 02/25 CBC w/ auto diff HCT % 35.0 46.0 42.9 FINAL [facility] ([facility], [address] [place] [id number] 0 02/25 CBC w/ auto diff MCV FL 80.0 100.0 94.5 FINAL Hayden Dumont [facility] ([facility], [address] [place] [address] Ave [address] [place] [id number] 0 02/25 CBC w/ auto diff MCH pg 26.0 34.0 31.9 FINAL Hayden Dumont [facility] ([facility], [address] [place] [address] Ave [address] [place] [id number] 0 02/25 CBC w/ auto diff MCHC g/dL 32.0 36.0 33.8 FINAL Hayden Dumont [facility] ([facility], [address] [place] [address] Ave [address] [place] [id number] 0 02/25 CBC w/ auto diff RDW % 11.5 15.0 12.4 FINAL Hayden Dumont [facility] ([facility], [address] [place] [address] [address] [place] [id number] 0 02/25 CBC w/ auto diff PLT 10^3/u l 140.0 440.0 264 FINAL Hayden Dumont [facility] ([facility], [address] [place] [address] Ave [address] [place] [id number] 0 02/25 CBC w/ auto diff MPV fL 6.5 12.4 11.3 FINAL Hayden Dumont [facility] ([facility], [address] [place] [address] Ave [address] [place] [id number] 0 02/25 CBC w/ auto diff Poli % % 37.0 80.0 48.0 FINAL Hayden Dumont [facility] ([facility], [address] [place] [address] Ave [address] [place] [id number] 0 02/25 CBC w/ auto diff LY % % 16.0 51.0 39.6 FINAL Hayden Dumont [facility] ([facility], [address] [place] [address] Ave [address] [place] [id number] 0 02/25 CBC w/ auto diff MO % % 0.0 12.0 8.0 FINAL Hayden Dumont [facility] ([facility], [address] [place] [address] Ave [address] [place] [id number] 0 02/25 CBC w/ auto diff EO % % 0.0 8.0 3.0 FINAL Hayden Dumont [facility] ([facility])- [place], [address] [place] [id number] 0 02/25 CBC w/ auto diff BA % % 0.0 3.0 1.2 FINAL Hayden Dumont [facility] ([facility], [address] [place] [address] Ave [address] [place] [id number] 0 02/25 CBC w/ auto diff IG % % 0.0 1.0 0.20 FINAL Hayden Dumont [facility] ([facility], [address] [place] [id number] 0 02/25 CBC w/ auto diff Poli # (ANC) 10^3/u l 1.5 8.0 2.4 FINAL Hayden Dumont [facility] ([facility], [address] [place] [address] Ave [address] [place] [id number] 0 02/25 CBC w/ auto diff LY # 10^3/u l 0.8 4.0 2.0 FINAL Hayden Dumont [facility] ([facility], [address] [place] [address] Ave [address] [place] [id number] 0 02/25 CBC w/ auto diff MO # 10^3/u l 0.0 1.2 0.4 FINAL Hayden Dumont [facility] ([facility], [address] [place] [address] Ave [address] [place] [id number] 0 02/25 CBC w/ auto diff EO # 10^3/u l 0.0 0.3 0.2 FINAL Hayden Dumont [facility] ([facility], [address] [place] [address] [address] [place] [id number] 0 02/25 CBC w/ auto diff BA # 10^3/u l 0.0 0.3 0.1 FINAL Hayden Dumont [facility] ([facility], [address] [place] [address] [address] [place] [id number] 0 02/25 CBC w/ auto diff IG # 10^3/u l 0.0 0.1 0.01 FINAL Hayden Dumont [facility] ([facility], [address] [place] [id number] 0 02/25 Iron profi le Iron ug/dl 30.0 160.0 95 FINAL Hayden [facility], [address] [place] [id number] 0 02/25 Iron profi le Iron, % satur ation % 15.0 50.0 37 FINAL Hayden [facility], [address] [place], [place] [address]e [address] [place] [id number] 0 02/25 Iron profi le TIBC ug/dl 228.0 428.0 259 FINAL Hayden [facility], [address] [place], [place] [address] [address] [facility] [place] [id number] 0 02/25 Jessica tin panel Jessica tin ng/mL 13.0 150.0 54 FINAL Hayden [facility], [address] [place], [place] [address] [address] [facility] [place] [id number] 0 Medications Date Name Route Dose Frequency [...] 05/29/2019 BMI 31.98 06/13/2019 BSA 1.86 06/13/2019 Oxygen Saturation 99.00 06/13/2019 Body Temperature 98.40 06/13/2019 Heart Beat 60.00 06/13/2019 BMI 31.39 06/13/2019 Intravascular Systolic 116 06/13/2019 Intravascular Diastolic 77 06/13/2019 Pain Scale 0.00 06/13/2019 Weight 180.00 06/13/2019 Height 63.50 06/13/2019 Respiratory Rate 15.00 08/09/2020 BSA 1.81 08/09/2020 BMI 29.43 08/09/2020 [...] Print Location: Unknown Date/Time Printed: 08/27/2025 09:37 ([facility]) Patient: MARAH DIAL Sex: Female [...] mg Amount in mL: 17 Pharmacy dispense: [facility]: [id number] Dispense/Waste: 510/0 mg Given Dose/Discard: 510/0 mg Admin Details: IV Administration: Piggyback Start Time: 14:06, Entered By: Hannah Weems RN, Stop Time: 14:37, Entered By: Hannah Weems RN Admix Fluid: 0.9 % sodium chloride, Admix Fluid Volume: 100mL, Total Volume: 127mL * Nurse Note for: 09-AUG-20 [facility] Nurse Note Print Location: Unknown Date/Time Printed: 08/27/2025 09:37 ([facility]) Patient: MARAH DIAL Sex: Female [...] mg Amount in mL: 17 Pharmacy dispense: [facility]: [id number] Dispense/Waste: 510/0 mg Given Dose/Discard: 510/0 mg Admin Details: IV Administration: Piggyback, Comments: Pt observed for 30 min post infusion Start Time: 13:14, Entered By: Mahnza Silvestre RN, Stop Time: 13:44, Entered By: Mahnaz Silvestre RN Admix Fluid: 0.9 % sodium chloride, Admix Fluid Volume: 100mL, Total Volume: 127mL * Nurse Note for: 13-JUN-19 [facility] Nurse Note Print Location: Unknown Date/Time Printed: 08/27/2025 09:37 ([facility]) Patient: MARAH DIAL Sex: Female [...] 99 (%) at rest. Entered by Christie Yonug MA 06/13/2019 15:32 Serial Vital Signs : [...] mg Amount in mL: 17 Pharmacy dispense: [facility]: [id number] Dispense/Waste: 510/0 mg Given Dose/Discard: 510/0 mg Start Time: 16:00, Entered By: Dimple Meza RN, Stop Time: 16:30, Entered By: Dimple Meza RN Admix Fluid: 0.9 % sodium chloride, Admix Fluid Volume: 100mL, Total Volume: 127mL
--- OUTSIDE RECORDS SUMMARY | 2025-08-27 11:38 | XMS_ITS | Encounter Summary ---
Author Organization [facility] Address [facility] [place] [address] Care Team Providers Care Guest Experience Manager Name Role Phone Hayden Eduardo Primary Care Provider [phone] Encounter Details Date Type Department Care Team (Late st Contact Info) Description 02/22/2024 Citybot Message Enc [facility] Medical Group Family & Internal Medicine [facility] [address] [place] [address] [place] [address] [place] [address] probably need a new medication [...] Sex Assigned at Female 10/27/2024 1:42 PM NIGHT TIME BABYSITTER Legal Sex Female 8:33 PM CDT Gender [...] Depression Total Score: 10 024 9:16 AM NIGHT TIME BABYSITTER documented as of this encounter Care Teams Guest Experience Manager Relationship Specialty [place] [address] [place] [address] PCP - General Physician Subway Operator Medical 09/16/23 documented as of this encounter
--- OUTSIDE RECORDS SUMMARY | 2025-08-27 11:38 | XMS_ITS | Encounter Summary ---
Author Organization [facility] Address [facility] [place] [address] Care Team Providers Care Senior Underwriter Name Role Phone Hayden Eduardo Primary Care Provider [phone] Encounter Details Date Type Department Care Team (Late st Contact Info) Description 05/09/2024 Biocontrol Message Enc [facility] Medical Group Family & Internal Medicine [facility] [address] [place] [address] [place] [address] [place] [address] Gastroenterology Social History Tobacco Use [...] Sex Assigned at Female 10/27/2024 1:42 PM CAPPING MACHINE OPERATOR Legal Sex Female 8:33 PM CDT Gender Identity Not on file Sexual Orientation Not on file documented as of this encounter Plan of Treatment Not on file documented as of this encounter Visit Diagnoses Not on filedocumented in this encounter Additional Health Concerns Assessment Noted Time PHQ-9 Depression Total Score: 10 024 9:16 AM CAPPING MACHINE OPERATOR documented as of this encounter Care Teams Senior Underwriter Relationship Specialty Start [place] [address] [place] [address] PCP - General Physician Manager Architecture Medical 09/16/23 documented as of this encounter
--- OUTSIDE RECORDS SUMMARY | 2025-08-27 11:38 | XMS_ITS | Patient Health Record ---
Author Organization [facility] [employer] [place] ([address]) Address [address] [place] [address] Care Team Providers Care Manager Lan Name Role Phone Milan Pillai Unavailable [phone] Raghu Johnson Unavailable Unavailable Allergies Allergen (clinical drug ingredient) Drug/Non Drug Allergy documented on EMR Reaction Allergy Type Onset Date Status Gluten GLUTEN CONTAINING PRODUCTS (uncoded) Internal/external reactions Allergy Active Reason For Referral No Information Medications Medication [...] day; Duration: 30 days Active Social History Tobacco Use: Social History Observation Description Date Details (start date - stop date) Former Smoker NA - 08/30/2015 Sex Assigned At : Social History Observation Description Sex Assigned At Female Smoking Smart Form: Question Answer Notes Are you a: former smoker When did you stop smoking? 08/30/2015 Problems Problem Type SNOMED Code ICD Code Onset Dates Problem Status W/U Status Risk Notes Problem Hypothyroidism (34329258) Hypothyroidism, unspecified (E03.9) Active confirmed Problem Chronic allergic conjunctivitis (71241118) Other chronic allergic conjunctivitis (H10.45) Active confirmed Problem Allergic rhinitis caused by pollen (disorder) (47353203) Allergic rhinitis due to pollen (J30.1) Active confirmed Problem Allergic rhinitis caused by animal hair and dander (449315636019404) Allergic rhinitis due to animal (cat) (dog) hair and dander (J30.81) Active confirmed Problem Allergic rhinitis (01478597) Other allergic rhinitis (J30.89) Active confirmed Problem Ingestion dermatitis caused by food (019369746) Dermatitis due to ingested food (L27.2) Active confirmed Problem Malaise (823477127) Other malaise (R53.81) Active confirmed Problem Chronic fatigue syndrome (disorder) (33169433) Chronic fatigue, unspecified (R53.82) Active confirmed Problem Fatigue (27793627) Other fatigue (R53.83) Active confirmed Problem Abnormal weight gain (929555043) Abnormal weight gain (R63.5) Active confirmed Problem Allergic rhinitis caused by pollen (disorder) (31453799) Allergic rhinitis due to pollen (J30.1) Active confirmed Problem Allergic rhinitis caused by animal hair and dander (552089154601441) Allergic rhinitis due to animal (cat) (dog) hair and dander (J30.81) Active confirmed Problem Allergic rhinitis (85972186) Other allergic rhinitis (J30.89) Active confirmed Problem Chronic allergic conjunctivitis (07536023) Other chronic allergic conjunctivitis (H10.45) Active confirmed Plan Of Treatment No Information Insurance Providers Payer Name Payer Address Payer Phone Subscriber Number Group Number Insured Name Patient Relationship to Insured Coverage Start Date Coverage End Date [facility] [address] [place] [address] [id number] Jo-Ann Pitt Self - patient is the insured Medical (General) History Surgical History Surgery Date(Month/Year) Csection 10/05/2016 Right hand tendon repair 07/06/2019 Ganglion cyst surgery 08/30/2014 Anchor teeth 08/30/2015
--- OUTSIDE RECORDS SUMMARY | 2025-08-27 11:38 | XMS_ITS | Clinical Summary ---
Author Organization [facility] Address [address] [place] [address] Care Team Providers Care Extrusion Bender Name Role Phone Hayden Eduardo Primary Care Provider [phone] Allergies Active Allergy Reactions Criticality Noted Date [...] Active naproxen (NAPROSYN) 500 MG tablet 10/26/19 Active cyclobenzaprine (FLEXERIL) 5 MG tablet 10/27/19 Active predniSONE (DELTASONE) 10 mg tabletIndications: Allergic dermatitis After the initial 7 days, take 3 tabs daily for 3 days, then 2 tabs daily for 3 days, then 1 tab daily for 3 days. 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 Getting prior records. Stable. 2014 Immunizations Immunization Administration Dates Next Due Adenovirus [...] Sex Assigned at Female 10/27/2024 1:42 PM HEAD PACKAGER Legal Sex Female 8:33 PM CDT Gender [...] Years) (1 of 2 - PCV) 2012 Hepatitis A Vaccines (2 of 2 - 2-dose series) 06/01/2013 11/30/2012, 10/28/2012, 05/25/2012, Additional history exists Cervical Cancer Screening Pap with HPV Testing (Age 30 to 64) Every 5 Years 2023 Annual Physical 01/06/2024 01/05/2023, 01/02/2022 PHQ-2 (Physician [facility]) 08/30/2024 09/24/2023 Cervical Cancer Screening Pap Smear (Age 30 to 64) Every 3 Years 02/11/2025 02/11/2022, 01/19/2020 Cervical Cancer Screening with HPV 02/11/2025 COVID-19 Vaccine ( season) 2025 12/16/2020, 11/29/2020 Influenza Adult (#1) 2025 06/17/2022, 08/30/2019, 07/15/2019, Additional history exists DTaP, Tdap and Td Vaccines (5 - Td or Tdap) 02/20/2032 02/19/2022, 04/16/2020, 09/30/2016, Additional history exists Meningococcal Vaccine Completed 04/08/2012 Hepatitis B Vaccines Completed 11/30/2012, 10/28/2012, 05/25/2012, Additional history exists HPV Vaccines Completed 12/29/2013, 12/29, 11/30/2012 Hepatitis C Completed 01/02/2022 Meningococcal B [...] (02/11/2022 8:14 AM CDT) THIN PREP PAP [address] [address] Department of Pathology Pathology Report CERVICAL/VAGINAL PAP SMEAR REPORT Name: JO-ANN DIAL Age: 10 1995 (Age: 26) Location: [facility] Sex: F Collected Date: 02/11/2022 [facility] #: [id number] Date Received: 02/13/2022 Date Reported: 02/13/2022 Provider: [...] is not effective in detecting cervical adenocarcinoma. [facility] 02/11/2022 8:14 AM CDT 02/13/2022 8:14 AM CDT Comment:CERVICAL/ENDOCERVICA L Raghu Johnson MD PATHOLOGY/CYTOLOGY ORDERABLES Fi nal Result [facility] [address] [place] [address], * HEPATITIS C ANTIBODY (01/02/2022 8:49 AM CDT) HEPATITIS C AB NON-REACTI VE NON-REACT SHANIQUA 01/02/2022 7:49 PM CDT [facility] Comment: ANTIBODIES TO HCV NOT DETECTED. DOES NOT EXCLUDE THE POSSIBILITY OF EXPOSURE TO HCV. 01/02/2022 8:49 AM CDT Raghu Johnson MD LABORATORY Final Result [facility] [address] [place] [address], [id number] from Last 3 Months or Most Recently Relevant to Health Maintenance Insurance Care Teams Extrusion Bender Relationship Specialty [place] [address] [place] [address] PCP - General Physician Registered Nursing Professor Medical 09/16/23
--- OUTSIDE RECORDS SUMMARY | 2025-08-27 11:38 | XMS_ITS | Encounter Summary ---
Author Organization [facility] Address [address] [place] [address] Care Team Providers Care Wallpaper Inspector And Shipper Name Role Phone Raghu Johnson MD Primary Care Provider [phone] Hayden Eduardo Primary Care Provider [phone] Encounter Details Date Type Department Care Team (Latest Contact Info) Description 02/02/2022 Backdoor Message Enc [facility] Multispecialty Care - [address] [address] [address] [place] [address] Raghu Johnson MD [address] [place] [address] [address] [place] [address] letter for celiac disease Social [...] Sex Assigned at Female 10/27/2024 1:42 PM STATISTICAL MODELER Legal Sex Female 8:33 PM CDT Gender [...] documented as of this encounter Care Teams Wallpaper Inspector And Shipper Relationship Specialty Start Date End Date Raghu Johnson MD [address] [address] PCP - General INTERNAL MEDICINE 01/02/22 09/15/23 [place] [address] [place] [address] PCP - General Physician Public Message Service Supervisor Medical 09/16/23 documented as of this encounter
--- OUTSIDE RECORDS SUMMARY | 2025-08-27 11:38 | XMS_ITS | Encounter Summary ---
Author Organization [facility] Address [address] [place] [address] Care Team Providers Care Forester Silviculture Name Role Phone Hayden Eduardo Primary Care Provider [phone] Encounter Details Date Type Department Care Team (Late st Contact Info) Description 02/01/2024 Dyyno Message Enc [facility] Family & Internal Medicine [facility] [address] [place] [address] [place] [address] [place] [address] Sleep study Social History Tobacco [...] Sex Assigned at Female 10/27/2024 1:42 PM AUTOMOTIVE QUALITY MANAGER Legal Sex Female 8:33 PM CDT [...] Depression Total Score: 10 024 9:16 AM AUTOMOTIVE QUALITY MANAGER documented as of this encounter Care Teams Forester Silviculture Relationship Specialty [place] [address] [place] [address] PCP - General Physician Air Quality Engineer Medical 09/16/23 documented as of this encounter
--- OUTSIDE RECORDS SUMMARY | 2025-08-27 11:38 | XMS_ITS | Encounter Summary ---
Author Organization [facility] Address [facility] [place] [address] Care Team Providers Care Mothers Helper Name Role Phone Hayden Eduardo Primary Care Provider [phone] Encounter Details Date Type Department Care Team (Late st Contact Info) Description 05/09/2024 LiquidText Message Enc [facility] Medical Group Family & Internal Medicine [facility] [address] [place] [address] [place] [address] [place] [address] [address] clinic [address] Social [...] Assigned at Female 10/27/2024 1:42 PM BUSINESS SYSTEM CONSULTANT Legal Sex Female 8:33 PM CDT Gender Identity Not on file Sexual Orientation Not on file documented as of this encounter Plan of Treatment Not on file documented as of this encounter Visit Diagnoses Not on filedocumented in this encounter Additional Health Concerns Assessment Noted Time PHQ-9 Depression Total Score: 10 024 9:16 AM BUSINESS SYSTEM CONSULTANT documented as of this encounter Care Teams Mothers Helper Relationship Specialty [place] [address] [place] [address] PCP - General Physician Rip Sawyer Medical 09/16/23 documented as of this encounter
--- OUTSIDE RECORDS SUMMARY | 2025-08-27 11:38 | XMS_ITS | Encounter Summary ---
Author Organization [facility] Address [address] [place] [address] Care Team Providers Care Director Of Safety And Security Name Role Phone Raghu Johnson MD Primary Care Provider [phone] Hayden Eduardo Primary Care Provider Encounter Details Date Type Department Care Team (Late st Contact Info) Description 02/16/2022 Tweetworks Message Enc [facility] Medical Group Multispecialty Care - [address] [place] [address] [employer], [facility] Provider results Social History Tobacco Use [...] Sex Assigned at Female 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
[2025-08-27 16:25] LABS: Magnesium 2.1 mg/dL (1.6-2.3)
[2025-08-27 17:41] LABS: Vitamin B12 398.0 pg/mL (239-931)
== END 2025-08-27 10:56 | disposition home or self-care (01) ==
LOC: ANHGOSHLAB 10:56
PROVIDERS: PCP Internal Medicine; Visit Provider Nurse Practitioner
DX: K90.0 Celiac disease (principal)
CPT/HCPCS: 36415; 82306; 82607; 82746; 83735; 84446